=== PATIENT | female | born 1990 | race Caucasian/White ===

== ENCOUNTER → 2016-05-08 | Outpatient (CLI) | payer OTHER ==
[2016-05-08 15:24] LABS: CH 32.6; CHCM 35.2; HCT 33.1 % (34.0-46.0); HDW 3.36; HGB 11.4 gm/dL (11.4-16.0); MCH 32.2 pg (25.0-35.0); MCHC 34.4 g/dL (31.0-37.0); MCV 93.6 fL (80.0-100.0); Mean Platelet Volume 7.6; RBC 3.54 m/uL (3.80-5.40); RDW 14.3 % (11.5-15.5); WBC 11.6 k/uL (3.8-10.6)
[2016-05-08 15:40] LABS: Glucose 66 mg/dL (74-99); Non-African American GFR(MDRD) >60 (>60 ml/min/1.73 sqM)
[2016-05-08 16:12] LABS: Hepatitis B Surface Ag Index 0.06
--- NOTE | 2016-05-08 16:13 | US ---
EXAMINATION TYPE: US OB anatomy transabd DATE OF EXAM: 05/08/2016 2:37 PM COMPARISON: No previous HISTORY: 25-year-old female Large for dates TECHNIQUE: Transabdominal (TA) FINDINGS: EXAM MEASUREMENTS: GESTATIONAL AGE / DATING Physician Established: (19 weeks/6 days) EDC: 09/26/2016 Dates by LMP: Unknown Dates by First Scan: No previous Dates by Current Scan for: (20 weeks/1 days) EDC: 09/24/2016 SURVEY IUP: Single PLACENTA: Posterior/fundal PREVIA: No previa SUNITHA: 10.8 cm Normal CERVICAL LENGTH (transabdominal: norm > 3.0cm): 3.4 cm BIOMETRY PRESENTATION: Breech LIE: Longitudinal BPD: 4.5 cm 19 weeks / 5 days HC: 16.9 cm 19 weeks / 4 days AC: 15.7 cm 20 weeks / 6 days FL: 3.3 cm 20 weeks / 3 days ESTIMATED WEIGHT IN GRAMS: 355 grams ESTIMATED WEIGHT IN LBS/OZS: 0 lbs. 13 oz. WEIGHT PERCENTAGE BASED ON ESTABLISHED DATE: 79 % HC/AC: 1.08 (1.09-1.26) FL/AC: 21% HEART RATE: 149 bpm RHYTHM: Normal ANATOMY SEEN (within normal limits): Lateral Vent (< 1 cm) 7mm Cisterna Magna (< 1.1 cm) 0.6cm Nuchal Fold (< 0.6 cm) 0.3cm Cerebellum (varies with age) 2.1cm Choroid Plexus (bilateral) Midline Falx Cavus Septi Pellucidi Four Chamber Heart Outflow tracts: LVOT Stomach Situs Nose / Lips Diaphragm Bladder Cord Insert Three Vessel Cord Longitudinal Spine Transverse Spine Arms (bilateral) Legs (bilateral) ANATOMY SUBOPTIMALLY VISUALIZED: Outflow tracts: RVOT Kidneys (bilateral) IMPRESSION: 1. Single live intrauterine with established gestational age of 19 weeks 6 days. Current ul trasound biometry is concordant (20 weeks 1 day) placing the child at the 79th percentile for weight. 2. The outflow tract (RVOT) and bilateral kidneys were suboptimally visualized. If desired, the patie nt can return for a rescan of the structures. 3. At that time, HC/AC ratio can also be reassessed. We suspect some technical factors artifactually decreasing this value.
== END | disposition home or self-care (01) ==
LOC: RADUSWWP 13:39
PROVIDERS: ATTEND Obstetrics & Gynecology
DX: O36.62X0 Maternal care for excessive fetal growth, second trimester, not applicable or unspecified (principal); Z3A.19 19 weeks gestation of pregnancy
CPT/HCPCS: 76811; 82565; 82947; 85027; 86762; 86780; 86850; 86900; 86901; 87340

== ENCOUNTER → 2016-06-12 | Outpatient (CLI) | payer OTHER ==
--- NOTE | 2016-06-14 09:17 | US ---
EXAMINATION TYPE: US OB Call Back DATE OF EXAM: 06/12/2016 4:40 PM COMPARISON: 05/08/2016 US in pacs CLINICAL HISTORY: F/U to Abn Z[facility]. OB callback for kidneys, RVOT and HC/AC GESTATIONAL AGE / DATING Dates by Initial Survey Scan: (24 weeks/6 days) EDC: 09/26/2016 HEART RATE: 133 bpm RHYTHM: Normal ANATOMY SEEN (second anatomic survey look): Outflow tracts:? RVOT Kidneys (bilateral): Within normal limits HC/AC 1.10 Normal TECHNOLOGIST IMPRESSION: Viable single IUP with heart rate of 133bpm with RVOT, kidneys and HC/AC se en at this time. IMPRESSION: 1. Limited examination supplementing original anatomy examination 05/08/2016. Additional areas n ot identified previously were measured and evident on the current exam. 2. Cardiac activity measures 133 bpm was observed during this portion of the exam.
== END | disposition home or self-care (01) ==
LOC: RADUSWWP 16:15
PROVIDERS: ATTEND Obstetrics & Gynecology

== ENCOUNTER → 2016-07-20 | Outpatient (CLI) | payer OTHER ==
[2016-07-20 12:26] LABS: CH 32.7; CHCM 34.1; HCT 31.7 % (34.0-46.0); HDW 3.48; HGB 10.7 gm/dL (11.4-16.0); MCH 32.8 pg (25.0-35.0); MCHC 33.9 g/dL (31.0-37.0); MCV 96.8 fL (80.0-100.0); Mean Platelet Volume 7.1; Poikilocytosis Slight; RBC 3.27 m/uL (3.80-5.40); RDW 15.4 % (11.5-15.5)
== END | disposition home or self-care (01) ==
LOC: LABWHC1 10:57
PROVIDERS: ATTEND Obstetrics & Gynecology
DX: Z34.82 Encounter for supervision of other normal pregnancy, second trimester (principal); Z3A.00 Weeks of gestation of pregnancy not specified
CPT/HCPCS: 36415; 82950; 85027

== ENCOUNTER 2016-07-29 15:51 | Outpatient (CLI) | payer OTHER ==
[2016-07-29 16:56] VITALS: BP 118/70; PULSE 111; RESP 20; TEMP 96.2
--- NOTE | 2016-07-29 17:20 | P.MSEPDOC ---
Presenting Problems - Arrival Data Date of Arrival on Unit: 07/29/16 Time of Arrival on Unit: 15:51 Mode of Transport: Wheelchair - Complaint OB-Reason for Admission/Chief Complaint: Possible Onset of Labor, Rule Out PROM Medical History - Information : 4 Para: 3 Term: 2 : 1 Abortions: Spontaneous or Elective: 0 Number of Living Children: 3 - Gestational Age Expected Date of Delivery: 09/26/16 Gestational Age by BROCK (wks/days): 31 Weeks and 4 Days Review of Systems - Review of Systems Constitutional: No problems Breast: No problems ENT: No problems Cardiovascular: No problems Respiratory: No problems Gastrointestinal: No problems Genitourinary: No problems Musculoskeletal: No problems Neurological: No problems Skin: No problems Vital Signs - Temperature Temperature: 96.2 F Temperature Source: Skin - Pulse Brachial Pulse Rate: 111 Pulse Assessment Method: Automatic Cuff - Respirations Respiratory Rate: 20 Oxygen Delivery Method: Room Air O2 Sat by Pulse Oximetry: 97 - Blood Pressure Right Arm Blood Pressure: 118/70 Blood Pressure Mean: 86 Blood Pressure Source: Automatic Cuff Medical Screen Scoring (Pre) - Cervical Exam Dilation: 0 cm = 0 Effacement: Exam Deferred Membranes: Intact - Uterine Contractions Frequency: N/A Duration: N/A Intensity: N/A - Maternal Vital Signs Maternal Temperature: N/A Maternal Blood Pressure: N/A Signs of Preeclampsia: N/A Maternal Respirations: N/A - Maternal Trauma Maternal Trauma: N/A - Assessment Baseline FHR: 150 Heart Rate - NICHD Category: Category I (Normal) = 0 - Total Score Total Score (Pre): 0 - Level of Risk Level of Risk: Low (0-5) Physician Notification (Post) - Physician Notified Physician Notified Date: 07/29/16 Physician Notified Time: 16:50 Physician/Practitioner Notified:: dr aldana Spoke With: dr aldana New Order Received: Yes - Notification Comment Comment: discharge home Disposition - Disposition OB Disposition: Triage, Discharge to home, Written follow up instructions reviewed Discharge Date: 07/29/16 Discharge Time: 17:15 I agree with the RN Medical Screening Exam: Yes Risk & Benefit of care provided described in d/c instruction: Yes Diagnosis: FALSE LABOR, UNSPECIFIED
--- NOTE | 2016-09-06 06:30 | P.MSEPDOC ---
Presenting Problems - Arrival Data Date of Arrival on Unit: 07/29/16 Time of Arrival on Unit: 15:51 Mode of Transport: Wheelchair - Complaint OB-Reason for Admission/Chief Complaint: Possible Onset of Labor, Rule Out PROM Medical History - Information : 4 Para: 3 Term: 2 : 1 Abortions: Spontaneous or Elective: 0 Number of Living Children: 3 - Gestational Age Expected Date of Delivery: 09/26/16 Gestational Age by BROCK (wks/days): 37 Weeks and 1 Days Review of Systems - Review of Systems Constitutional: No problems Breast: No problems ENT: No problems Cardiovascular: No problems Respiratory: No problems Gastrointestinal: No problems Genitourinary: No problems Musculoskeletal: No problems Neurological: No problems Skin: No problems Vital Signs - Temperature Temperature: 96.2 F Temperature Source: Skin - Pulse Brachial Pulse Rate: 111 Pulse Assessment Method: Automatic Cuff - Respirations Respiratory Rate: 20 Oxygen Delivery Method: Room Air O2 Sat by Pulse Oximetry: 97 - Blood Pressure Right Arm Blood Pressure: 118/70 Blood Pressure Mean: 86 Blood Pressure Source: Automatic Cuff Medical Screen Scoring (Pre) - Cervical Exam Dilation: 0 cm = 0 Effacement: Exam Deferred Membranes: Intact - Uterine Contractions Frequency: N/A Duration: N/A Intensity: N/A - Maternal Vital Signs Maternal Temperature: N/A Maternal Blood Pressure: N/A Signs of Preeclampsia: N/A Maternal Respirations: N/A - Maternal Trauma Maternal Trauma: N/A - Assessment Baseline FHR: 150 Heart Rate - NICHD Category: Category I (Normal) = 0 - Total Score Total Score (Pre): 0 - Level of Risk Level of Risk: Low (0-5) Physician Notification (Post) - Physician Notified Physician Notified Date: 07/29/16 Physician Notified Time: 16:50 Physician/Practitioner Notified:: dr aldana Spoke With: dr aldana New Order Received: Yes - Notification Comment Comment: discharge home Disposition - Disposition OB Disposition: Triage, Discharge to home, Written follow up instructions reviewed Discharge Date: 07/29/16 Discharge Time: 17:15 I agree with the RN Medical Screening Exam: Yes Risk & Benefit of care provided described in d/c instruction: Yes Diagnosis: 37 WEEKS GESTATION OF
== END 2016-07-29 17:08 | disposition home or self-care (01) ==
LOC: FBPOP 15:51
PROVIDERS: ATTEND Obstetrics & Gynecology
DX: O47.9 False labor, unspecified (principal); Z3A.31 31 weeks gestation of pregnancy
CPT/HCPCS: 59025; 84112; G0463; 99213

== ENCOUNTER 2016-08-14 14:03 | Outpatient (CLI) | payer OTHER ==
[2016-08-14 14:54] VITALS: BP 130/90; PULSE 113; RESP 16; TEMP 96.4
== END 2016-08-14 16:30 | disposition home or self-care (01) ==
LOC: FBPOP 14:03
PROVIDERS: ATTEND Obstetrics & Gynecology
DX: O26.93 Pregnancy related conditions, unspecified, third trimester (principal); Z3A.33 33 weeks gestation of pregnancy
CPT/HCPCS: 59025; 84112; 82731; G0463; 99213

== ENCOUNTER 2016-08-20 10:43 | Outpatient (CLI) | payer OTHER ==
[2016-08-20 11:16] VITALS: PULSE 103; RESP 16; TEMP 96.3
[2016-08-20 11:58] VITALS: BP 128/85
--- NOTE | 2016-08-24 07:33 | P.MSEPDOC ---
Presenting Problems - Arrival Data Date of Arrival on Unit: 08/20/16 Time of Arrival on Unit: 10:45 Mode of Transport: Ambulatory - Complaint OB-Reason for Admission/Chief Complaint: Possible Onset of Labor Comment: cntrx, breech Medical History - Information : 4 Para: 3 Term: 2 : 1 Abortions: Spontaneous or Elective: 0 Number of Living Children: 3 - Gestational Age Expected Date of Delivery: 09/19/16 Gestational Age by BROCK (wks/days): 36 Weeks and 2 Days - History Complications: Breech Review of Systems - Review of Systems Constitutional: No problems Breast: No problems ENT: No problems Cardiovascular: No problems Respiratory: No problems Gastrointestinal: No problems Genitourinary: No problems Musculoskeletal: No problems Neurological: No problems Skin: No problems Vital Signs - Temperature Temperature: 96.3 F Temperature Source: Oral - Pulse Right Pulse Rate: 103 Pulse Assessment Method: Auscultation - Respirations Respiratory Rate: 16 Oxygen Delivery Method: Room Air - Blood Pressure Right Arm Blood Pressure: 128/85 Blood Pressure Mean: 99 Blood Pressure Source: Automatic Cuff Medical Screen Scoring (Pre) - Cervical Exam Dilation: 1-3 cm = 1 Membranes: Intact - Uterine Contractions Frequency: > 5 minutes apart = 1 Duration: N/A Intensity: N/A - Maternal Vital Signs Maternal Temperature: N/A Signs of Preeclampsia: N/A Maternal Respirations: N/A - Maternal Trauma Maternal Trauma: N/A - Assessment Baseline FHR: 140 Heart Rate - NICHD Category: Category I (Normal) = 0 NST: Reactive Position: N/A - Total Score Total Score (Pre): 2 - Level of Risk Level of Risk: Low (0-5) Physician Notification (Pre) - Physician Notified Physician Notified Date: 08/20/16 Physician Notified Time: 11:14 Physician/Practitioner Notifed:: Dr Fisher - Notification Comment Comment: d/c home with instructions, keep scheduled appt on in office Medical Screen Scoring (Post) - Cervical Exam Dilation: 1-3 cm = 1 - Uterine Contractions Frequency: N/A Duration: N/A Intensity: N/A - Maternal Vital Signs Maternal Temperature: N/A Maternal Blood Pressure: N/A Signs of Preeclampsia: N/A Maternal Respirations: N/A - Assessment Heart Rate: 140 Heart Rate - NICHD Category: Category I (Normal) = 0 - Total Score Total Score (Post): 1 - Post Treatment Level of Risk Post Treatment Level of Risk: N/A Physician Notification (Post) - Physician Notified Physician Notified Date: 08/20/16 Physician Notified Time: 11:57 Physician/Practitioner Notified:: dr fisher New Order Received: Yes Disposition - Disposition OB Disposition: Discharge to home Transferred to:: home Discharge Date: 08/20/16 Discharge Time: 11:58 I agree with the RN Medical Screening Exam: Yes Risk & Benefit of care provided described in d/c instruction: Yes Diagnosis: PRIMARY INADEQUATE CONTRACTIONS
== END 2016-08-20 11:58 | disposition home or self-care (01) ==
LOC: FBPOP 10:43
PROVIDERS: ATTEND Obstetrics & Gynecology
DX: O62.0 Primary inadequate contractions (principal); Z3A.36 36 weeks gestation of pregnancy
CPT/HCPCS: 59025; G0463; 99213

== ENCOUNTER 2016-09-06 17:10 | Outpatient (CLI) | payer OTHER ==
[2016-09-06 17:27] VITALS: BP 126/83; PULSE 109; TEMP 96.5
[2016-09-06 17:35] VITALS: RESP 17
== END 2016-09-06 18:54 | disposition home or self-care (01) ==
LOC: FBPOP 17:10
PROVIDERS: ATTEND Obstetrics & Gynecology
DX: O47.1 False labor at or after 37 completed weeks of gestation (principal); Z3A.37 37 weeks gestation of pregnancy
CPT/HCPCS: 59025; G0463; 99213

== ENCOUNTER 2016-09-12 20:17 | Outpatient (CLI) | payer OTHER ==
[2016-09-12 20:47] VITALS: BP 143/91; PULSE 95; RESP 18; TEMP 96.8
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
== END 2016-09-12 23:20 | disposition home or self-care (01) ==
LOC: FBPOP 20:17
PROVIDERS: ATTEND Obstetrics & Gynecology
DX: O9A.213 Injury, poisoning and certain other consequences of external causes complicating pregnancy, third trimester (principal); T14.90 Injury, unspecified; Z3A.38 38 weeks gestation of pregnancy
CPT/HCPCS: 59025; 84112; G0463; 99213

== ENCOUNTER 2016-09-15 11:11 | Inpatient (IN) | payer OTHER ==
[2016-09-15] MEDS ORDERED: TERBUTALINE 1 MG/ML VIAL SQ PRN (12:56)
[2016-09-15] MEDS ORDERED: CARBOPROST TROMETHAMINE 250 MCG/ML 1 ML AMP IM PRN (12:56)
[2016-09-15] MEDS ORDERED: METHYLERGONOVINE 0.2 MG/ML 1 ML AMP IM PRN (12:56)
[2016-09-15] MEDS ORDERED: OXYTOCIN 10 UNIT/ML 1 ML VIAL IM PRN (12:56)
[2016-09-15] MEDS ORDERED: LIDOCAINE 1% (PF) 10 MG/ML (30 ML SDV) SQ PRN (12:56)
[2016-09-15] MEDS ORDERED: OXYTOCIN 20 UNITS/1000 ML NS 1,000 ML IV SCH ×2 (13:00→17:45)
--- NOTE | 2016-09-15 13:01 | P.HPOB ---
History of Present Illness H&P Date: 09/15/16 Chief Complaint: contractions 25 year old presents at 38 weeks and 4 days in labor. Her cervix changed from 4 centers to 5 cm dilated, 70% effaced, -2 station. She is constance irregularly every 3-5 minutes. heart tones are 140-145 with moderate variability and reactive. Review of Systems All systems: negative Constitutional: Denies chills, Denies fever Eyes: denies blurred vision, denies pain Ears, nose, mouth and throat: Denies headache, Denies sore throat Cardiovascular: Denies chest pain, Denies shortness of breath Respiratory: Denies cough Gastrointestinal: Denies abdominal pain, Denies diarrhea, Denies nausea, Denies vomiting Genitourinary: Denies dysuria, Denies hematuria Musculoskeletal: Denies myalgias Integumentary: Denies pruritus, Denies rash Neurological: Denies numbness, Denies weakness Psychiatric: Denies anxiety, Denies depression Endocrine: Denies fatigue, Denies weight change Past Medical History Past Medical History: No Reported History Additional Past Medical History / Comment(s): Obstetric history: She has had 3 previous vaginal deliveries. This is her fourth . She's had care with me since 17 weeks gestation. Blood type B positive, antibodies negative, rubella immune, treponema antibody negative, hepatitis B negative. GBS negative. Normal 1 hour glucose tolerance test and normal anatomy ultrasound. History of Any Multi-Drug Resistant Organisms: None Reported Past Surgical History: Cholecystectomy Past Anesthesia/Blood Transfusion Reactions: No Reported Reaction Past Psychological History: No Psychological Hx Reported Smoking Status: Never smoker Past Alcohol Use History: None Reported Past Drug Use History: None Reported - Past Family History Mother Family Medical History: Hypertension Medications and Allergies Home Medications Medication Instructions Recorded Confirmed Type Pnv,Calcium 72/Iron/Folic Acid 1 each PO DAILY 07/29/16 09/15/16 History [ Plus Tablet] Allergies Allergy/AdvReac Type Severity Reaction Status Date / Time acetaminophen [From Lortab] Allergy Rash/Hives Verified 09/15/16 12:03 codeine Allergy Rash/Hives Verified 09/15/16 12:03 hydrocodone [From Lortab] Allergy Rash/Hives Verified 09/15/16 12:03 latex Allergy Rash/Hives Verified 09/15/16 12:03 adhesive tape Allergy Rash/Hives Uncoded 09/15/16 12:03 Exam Osteopathic Statement: *. No significant issues noted on an osteopathic structural exam other than those noted in the History and Physical/Consult. - Vital Signs Vital signs: Vital Signs Temp Pulse Resp BP Pulse Ox 09/15/16 12:04 98.5 F 88 18 132/73 96 Intake and Output 09/14/16 09/15/16 09/15/16 22:59 06:59 14:59 Other: Weight 86.636 kg Patient Weight 09/16/16 06:59 Weight 86.636 kg Heart: Regular rate and rhythm Lungs: Clear to auscultation bilaterally Abdomen: Soft, nontender between contractions Extremities: Negative Homans sign Assessment and Plan (1) Normal labor Status: Acute Plan: 1. Admit to family place 2. Expectant management 3. Anticipate normal vaginal delivery
[2016-09-15 13:11] LABS: Basophils % (A) 0 %; CH 32.6; CHCM 34.4; Eosinophils % (A) 0 %; HCT 33.1 % (34.0-46.0); HGB 11.1 gm/dL (11.4-16.0); Luc # (Auto) 0.18; Luc % (Auto) 2; Lymphocytes % (A) 22 %; MCH 31.9 pg (25.0-35.0); MCHC 33.4 g/dL (31.0-37.0); MCV 95.2 fL (80.0-100.0); Mean Platelet Volume 7.4; Monocytes # (A) 0.4 k/uL (0-1.0); Monocytes % (A) 4 %; Neutrophils # (A) 6.6 k/uL (1.3-7.7); Neutrophils % (A) 72 %; Poikilocytosis Slight; RBC 3.48 m/uL (3.80-5.40); RDW 15.6 % (11.5-15.5); WBC 9.1 k/uL (3.8-10.6); WBC (Perox) 8.95
[2016-09-15] MEDS ORDERED: BUTORPHANOL 1 MG/ML 1 ML VIAL IV PRN (13:11)
[2016-09-15] MEDS: LACTATED RINGERS 1,000 ML IV SCH ×2 (13:19→21:35)
[2016-09-15 13:26] VITALS: RESP 16; BMI 31.8
[2016-09-15] MEDS ORDERED: BENZOCAINE SPRAY 57GM TOPICAL PRN (17:37)
[2016-09-15] MEDS ORDERED: SIMETHICONE 80 MG CHEWABLE PO PRN (17:37)
[2016-09-15] MEDS ORDERED: diphenhydrAMINE 50 MG/ML 1 ML VIAL IVP PRN ×2 (17:37)
[2016-09-15] MEDS ORDERED: LANOLIN CREAM 5 GM TUBE TOPICAL PRN (17:37)
[2016-09-15] MEDS ORDERED: HYDROCORTISONE 2.5% RECTAL CREAM 30 GM TUBE RECTAL PRN (17:37)
[2016-09-15] MEDS ORDERED: WITCH HAZEL 1 EACH MED..PAD TOPICAL PRN (17:37)
[2016-09-15] MEDS ORDERED: diphenhydrAMINE 25 MG CAP PO PRN (17:37)
[2016-09-15] MEDS ORDERED: ZOLPIDEM 5 MG TAB PO PRN (17:37)
[2016-09-15] MEDS ORDERED: diphenhydrAMINE 50 MG CAP PO PRN (17:37)
[2016-09-15] MEDS ORDERED: ACETAMINOPHEN TAB 325 MG TAB PO PRN (17:43)
--- NOTE | 2016-09-15 18:03 | P.PROBDLV ---
Vaginal Delivery Note - . Vaginal Delivery Note: The patient progressed to complete dilation spontaneously. She delivered early precipitately vaginally a viable female with a loose nuchal cord 1 reduced around the body with delivery. Apgars were 9 at 1 minute and 9 at 5 minutes and infant weight was 6 lbs. 3 oz. Placenta delivered shortly thereafter, intact, with a three-vessel cord. Uterus contracted well after oxytocin was given and uterine massage was carried out. Inspection of the perineum revealed no perineal lacerations. Estimated blood loss is approximately 100 mL's. Both mother and infant are in stable condition.
[2016-09-15] MEDS: SENNOSIDES-DOCUSATE SODIUM 1 EACH TAB PO SCH (19:29)
[2016-09-15] MEDS: IBUPROFEN 600 MG TAB PO PRN (23:47)
[2016-09-16 06:01] LABS: Basophils % (A) 0 %; CH 32.6; CHCM 35.5; Eosinophils % (A) 0 %; HCT 29.8 % (34.0-46.0); HDW 3.57; HGB 10.4 gm/dL (11.4-16.0); Luc # (Auto) 0.23; Luc % (Auto) 2; Lymphocytes # (A) 1.8 k/uL (1.0-4.8); Lymphocytes % (A) 15 %; MCH 32.3 pg (25.0-35.0); MCHC 34.9 g/dL (31.0-37.0); MCV 92.6 fL (80.0-100.0); Mean Platelet Volume 7.5; Monocytes # (A) 0.4 k/uL (0-1.0); Monocytes % (A) 3 %; Neutrophils # (A) 9.4 k/uL (1.3-7.7); Neutrophils % (A) 79 %; Poikilocytosis Slight; RBC 3.22 m/uL (3.80-5.40); RDW 15.2 % (11.5-15.5); WBC 11.9 k/uL (3.8-10.6); WBC (Perox) 12.06
--- NOTE | 2016-09-16 07:35 | P.DS ---
Providers Date of admission: 09/15/16 12:38 Expected date of discharge: 09/16/16 Attending physician: Naomi Sierra Primary care physician: Stated None - Discharge Diagnosis(es) (1) Normal labor Current Visit: Yes Status: Resolved (2) Normal vaginal delivery Current Visit: No Status: Acute Hospital Course: Patient presented in labor. She underwent a normal vaginal delivery and had an uncomplicated post course. Her lochia is decreasing, pain well controlled, ambulating and voiding without difficulty. Denies N/V, F/C, CP, SOB , calf pain. She will be discharged home PPD #1 in stable condition to follow up with me in 6 weeks. Plan - Discharge Summary New Discharge Prescriptions: No Action Pnv,Calcium 72/Iron/Folic Acid [ Plus Tablet] 1 each PO DAILY Discharge Medication List Pnv,Calcium 72/Iron/Folic Acid [ Plus Tablet] 1 each PO DAILY 07/29/16 [ History] Follow up Appointment(s)/Referral(s): Naomi Sierra DO [Doctor of Osteopathic Medicine] - 6 Weeks Discharge Disposition: HOME SELF-CARE
[2016-09-16] MEDS: SENNOSIDES-DOCUSATE SODIUM 1 EACH TAB PO SCH (10:28)
--- NOTE | 2016-09-16 12:58 | P.MSEPDOC ---
Presenting Problems - Arrival Data Date of Arrival on Unit: 09/15/16 Time of Arrival on Unit: 12:35 Mode of Transport: Ambulatory - Complaint OB-Reason for Admission/Chief Complaint: Possible Onset of Labor, Vaginal Bleeding Medical History - Information : 4 Para: 3 Term: 2 : 1 Abortions: Spontaneous or Elective: 0 Number of Living Children: 3 - Gestational Age Expected Date of Delivery: 09/26/16 Gestational Age by BROCK (wks/days): 38 Weeks and 4 Days Review of Systems - Review of Systems Constitutional: No problems Breast: No problems ENT: No problems Cardiovascular: No problems Respiratory: No problems Gastrointestinal: No problems Genitourinary: No problems Musculoskeletal: No problems Neurological: No problems Skin: No problems Vital Signs - Temperature Temperature: 97.7 F Temperature Source: Oral - Pulse Pulse Oximetery Pulse Rate: 98 Pulse Assessment Method: Automatic Cuff - Respirations Respiratory Rate: 16 Oxygen Delivery Method: Room Air O2 Sat by Pulse Oximetry: 98 - Blood Pressure Right Arm Sitting Blood Pressure: 129/87 Blood Pressure Mean: 101 Blood Pressure Source: Automatic Cuff Medical Screen Scoring (Pre) - Cervical Exam Dilation: 4-7 cm = 2 Effacement: More than 50% = 2 Membranes: Intact - Uterine Contractions Frequency: > 5 minutes apart = 1 Duration: > 40 seconds = 2 - Maternal Vital Signs Maternal Temperature: N/A Maternal Blood Pressure: N/A Signs of Preeclampsia: N/A Maternal Respirations: N/A - Maternal Trauma Maternal Trauma: N/A - Assessment Baseline FHR: 130 Heart Rate - NICHD Category: Category I (Normal) = 0 NST: Reactive Position: N/A Station: N/A - Total Score Total Score (Pre): 7 - Level of Risk Level of Risk: Medium (6-9) Physician Notification (Pre) - Physician Notified Physician Notified Date: 09/15/16 Physician Notified Time: 11:45 New Order Received: Yes Medical Screen Scoring (Post) - Cervical Exam Dilation: 4-7 cm = 2 Effacement: More than 50% = 2 Membranes: Intact - Uterine Contractions Frequency: > 5 minutes apart = 1 Duration: > 40 seconds = 2 Intensity: N/A - Maternal Vital Signs Maternal Temperature: N/A Maternal Blood Pressure: N/A Signs of Preeclampsia: N/A Maternal Respirations: N/A - Maternal Trauma Maternal Trauma: N/A - Assessment Heart Rate: 130 Heart Rate - NICHD Category: Category I (Normal) = 0 NST: Reactive Position: N/A Station: N/A - Total Score Total Score (Post): 7 - Post Treatment Level of Risk Post Treatment Level of Risk: Medium (6-9) Physician Notification (Post) - Physician Notified Physician Notified Date: 09/15/16 Physician Notified Time: 12:35 New Order Received: Yes Disposition - Disposition OB Disposition: Admit, LDRP Suite Discharge Date: 09/15/16 Discharge Time: 12:35 I agree with the RN Medical Screening Exam: Yes Risk & Benefit of care provided described in d/c instruction: Yes Diagnosis: ENCOUNTER FOR FULL-TERM UNCOMPLICATED DELIVERY
[2016-09-16] MEDS: IBUPROFEN 600 MG TAB PO PRN (17:26)
[2016-09-16 17:49] VITALS: PULSE 61; TEMP 98.3
[2016-09-16 17:51] VITALS: BP 137/87
== END 2016-09-16 18:30 | disposition home or self-care (01) | DRG 775 ==
LOC: FBPOP 11:11 → 4FBP 12:38
PROVIDERS: ADMIT Obstetrics & Gynecology; ATTEND Obstetrics & Gynecology
PROC: 10E0XZZ Delivery of Products of Conception, External Approach (ICD-10-PCS; principal; 2016-09-15)
DX: O69.81X0 Labor and delivery complicated by cord around neck, without compression, not applicable or unspecified (principal); Z37.0 Single live birth; Z3A.38 38 weeks gestation of pregnancy; Z79.899 Other long term (current) drug therapy; Z90.49 Acquired absence of other specified parts of digestive tract; Z88.6 Allergy status to analgesic agent; Z88.5 Allergy status to narcotic agent; Z91.040 Latex allergy status; Z91.048 Other nonmedicinal substance allergy status
CPT/HCPCS: 59025; 85025; 88307; 99213

== ENCOUNTER → 2016-11-23 | Outpatient (CLI) | payer OTHER | LOC: LABWHC1 12:26 | PROVIDERS: ATTEND Obstetrics & Gynecology | DX: N92.6 Irregular menstruation, unspecified (principal) | CPT/HCPCS: 36415; 84702 ==

== ENCOUNTER → 2017-01-01 | Outpatient (CLI) | payer OTHER ==
[2017-01-01 12:34] LABS: Basophils % (A) 1 %; CH 31.5; CHCM 33.9; Eosinophils # (A) 0.1 k/uL (0-0.7); Eosinophils % (A) 1 %; HCT 40.2 % (34.0-46.0); HDW 2.71; HGB 13.1 gm/dL (11.4-16.0); Luc # (Auto) 0.14; Luc % (Auto) 2; Lymphocytes # (A) 2.6 k/uL (1.0-4.8); Lymphocytes % (A) 41 %; MCH 30.5 pg (25.0-35.0); MCHC 32.7 g/dL (31.0-37.0); MCV 93.4 fL (80.0-100.0); Mean Platelet Volume 7.6; Monocytes # (A) 0.3 k/uL (0-1.0); Monocytes % (A) 5 %; Neutrophils # (A) 3.2 k/uL (1.3-7.7); Neutrophils % (A) 50 %; RDW 14.7 % (11.5-15.5); WBC 6.3 k/uL (3.8-10.6); WBC (Perox) 6.63
== END | disposition home or self-care (01) ==
LOC: LABPAT 12:06
PROVIDERS: ATTEND Obstetrics & Gynecology
DX: Z01.812 Encounter for preprocedural laboratory examination (principal)
CPT/HCPCS: 85025

== ENCOUNTER 2017-01-04 06:58 | Day surgery (SDC) | payer OTHER ==
[2017-01-01 10:22] VITALS: BMI 28.4
--- NOTE | 2017-01-01 15:36 | P.HPOB ---
History of Present Illness H&P Date: 01/01/17 Chief Complaint: Family Planning 26 year old presents for laparoscopic tubal ligation. Review of Systems All systems: negative Constitutional: Denies chills, Denies fever Eyes: denies blurred vision, denies pain Ears, nose, mouth and throat: Denies headache, Denies sore throat Cardiovascular: Denies chest pain, Denies shortness of breath Respiratory: Denies cough Gastrointestinal: Denies abdominal pain, Denies diarrhea, Denies nausea, Denies vomiting Genitourinary: Denies dysuria, Denies hematuria Musculoskeletal: Denies myalgias Integumentary: Denies pruritus, Denies rash Neurological: Denies numbness, Denies weakness Psychiatric: Denies anxiety, Denies depression Endocrine: Denies fatigue, Denies weight change Past Medical History Past Medical History: No Reported History Additional Past Medical History / Comment(s): OB history: 4 vaginal deliveries History of Any Multi-Drug Resistant Organisms: None Reported Past Surgical History: Cholecystectomy Past Anesthesia/Blood Transfusion Reactions: No Reported Reaction Past Psychological History: No Psychological Hx Reported Smoking Status: Never smoker Past Alcohol Use History: None Reported Past Drug Use History: None Reported - Past Family History Father Family Medical History: Cancer, Deep Vein Thrombosis (DVT) Mother Family Medical History: Deep Vein Thrombosis (DVT), Hypertension Medications and Allergies Home Medications Medication Instructions Recorded Confirmed Type Amoxicillin 500 mg PO Q12HR 01/01/17 01/01/17 History Allergies Allergy/AdvReac Type Severity Reaction Status Date / Time acetaminophen [From Lortab] Allergy Rash/Hives Verified 01/01/17 10:06 codeine Allergy Rash/Hives Verified 01/01/17 10:06 hydrocodone [From Lortab] Allergy Rash/Hives Verified 01/01/17 10:06 latex Allergy Rash/Hives Verified 01/01/17 10:06 adhesive tape Allergy Rash/Hives Uncoded 01/01/17 10:06 Exam Osteopathic Statement: *. No significant issues noted on an osteopathic structural exam other than those noted in the History and Physical/Consult. - Vital Signs Vital signs: Intake and Output 01/01/17 01/01/17 01/01/17 06:59 14:59 22:59 Other: Weight 77.564 kg Patient Weight 01/02/17 06:59 Weight 77.564 kg HEart: RRR Lungs: CTAB Abdomen: soft, nontender Extremeties: neg lillian's Assessment and Plan (1) Family planning Status: Acute Plan: 1. laparoscopic tubal ligation
[~2017-01-04 06:58] MED LIST: DEXAMETHASONE SOD PHOSPHATE 10 MG/ML 1 ML VIAL IV ONE; HYDROmorphone 1 MG/ML 1 ML SYRINGE IVP PRN; LACTATED RINGERS 1,000 ML IV SCH; LIDOCAINE 1% 20 ML VIAL (10MG/ML) FOR IV START INTRADERMA PRN; MIDAZOLAM 2 MG/2 ML VIAL IV PRN; ONDANSETRON 4 MG/2 ML VIAL IVP ONE; Pre Op ABX Message 1 EACH MISC MISCELLANE ONE; SCOPOLAMINE 1.5MG/72HR PATCH TRANSDERM ONE
[2017-01-04] MEDS ORDERED: LACTATED RINGERS 1,000 ML IV ONE ×2 (07:21→08:40)
[2017-01-04] MEDS ORDERED: BUPIVACAINE (PF) 0.25% 30 ML VIAL SQ ONE ×3 (07:35→08:43)
[2017-01-04] MEDS ORDERED: MIDAZOLAM 2 MG/2 ML VIAL ONE (07:56)
[2017-01-04] MEDS ORDERED: LIDOCAINE 1% INJ 10MG/ML (20 ML MDV) ONE (07:56)
[2017-01-04] MEDS ORDERED: KETOROLAC 30 MG/ML 1 ML VIAL ONE (07:56)
[2017-01-04] MEDS ORDERED: HYDROmorphone (PF) 1 MG/ML ONE (07:56)
[2017-01-04] MEDS ORDERED: ROCURONIUM BROMIDE 10 MG/ML 10 ML VIAL IV ONE (07:56)
[2017-01-04] MEDS ORDERED: SUCCINYLCHOLINE CHLORIDE 100 MG/5 ML SYR IV ONE (07:56)
[2017-01-04] MEDS ORDERED: GLYCOPYRROLATE 0.2 MG/ML 2 ML VIAL ONE (07:56)
[2017-01-04] MEDS ORDERED: PROPOFOL 10 MG/ML 20 ML VIAL IV ONE (07:56)
[2017-01-04] MEDS ORDERED: fentaNYL (PF) 50 MCG/ML 2 ML AMP ONE (07:56)
[2017-01-04] MEDS ORDERED: NEOSTIGMINE 1 MG/ML 10 ML VIAL ONE (07:56)
[2017-01-04] MEDS ORDERED: MEPERIDINE 50 MG/ML SYRINGE ONE (07:56)
--- NOTE | 2017-01-04 08:44 | P.OP ---
Date of Procedure: 01/04/17 Preoperative Diagnosis: 1. Family planning Postoperative Diagnosis: 1. Family planning Procedure(s) Performed: Laparoscopic tubal ligation Anesthesia: LYNSEY Surgeon: Naomi Sierra Estimated Blood Loss (ml): 5 IV fluids (ml): 850 Urine output (ml): 10 Pathology: none sent Condition: stable Disposition: PACU Operative Findings: Normal uterus, tubes, ovaries Description of Procedure: Patient was taken to the operating room where general anesthesia was obtained without difficulty. She was prepped and draped in normal sterile fashion in the dorsal lithotomy position, legs placed in the Kostas stirrups. Bladder drained of all urine. [place] speculum placed in the vagina and the anterior lip the cervix was grasped with single-tooth tenaculum. The uterus is sounded to 8.5 cm and the kroner manipulator was placed. Attention was then turned to the abdomen and gloves were changed. A 10 mm infraumbilical incision was made the scalpel and 10 mm optical trocar was placed under direct visualization. A 5 mm suprapubic Incision was made and a 5 mm optical trocar was placed under direct visualization. Survey of the pelvis revealed normal uterus tubes and ovaries. The left fallopian tube was grasped with a Kleppinger and fulgurated 2 -3 cm on this side in the ampullar portion. The right fallopian tube was grasped with a Kleppinger and fulgurated 2-3 cm in the ampullar portion. All instruments were then removed from the abdomen and vagina. The 10 mm infraumbilical incision was closed with 0 Vicryl and the fascial layer and then 4-0 Vicryl in a subcuticular fashion. The 5 mm incision was closed with 4-0 Vicryl in a subcuticular fashion. Patient tolerated procedure well, sponge and instrument counts correct 2 and she was taken to recovery room in stable condition.
[2017-01-04 09:00] VITALS: TEMP 97
[2017-01-04 09:36] VITALS: RESP 16
[2017-01-04 09:59] VITALS: BP 130/82; PULSE 69
== END 2017-01-04 10:55 | disposition home or self-care (01) ==
LOC: OR 06:58
PROVIDERS: ATTEND Obstetrics & Gynecology
DX: Z30.2 Encounter for sterilization (principal); Z79.2 Long term (current) use of antibiotics; Z88.6 Allergy status to analgesic agent; Z91.040 Latex allergy status; Z88.5 Allergy status to narcotic agent; Z91.09 Other allergy status, other than to drugs and biological substances
CPT/HCPCS: 81025; 58670; J2250; J1100; J2710; J2175; J2405; J2001; J3010; J1885; J1170; J0330; J2704

== ENCOUNTER → 2017-04-27 | Outpatient (CLI) | payer OTHER ==
--- NOTE | 2017-04-27 16:08 | XR ---
EXAMINATION TYPE: XR elbow limited LT DATE OF EXAM: 04/27/2017 CLINICAL HISTORY: Left-sided pain posteriorly after fall TECHNIQUE: Frontal, lateral and oblique images of the left elbow are obtained. COMPARISON: None FINDINGS: There is no acute fracture/dislocation evident in the left elbow. No abnormal fat pad sig ns are seen. The overlying soft tissue appears unremarkable. IMPRESSION: There is no acute fracture or dislocation in the left elbow.
== END | disposition home or self-care (01) ==
LOC: RADXRMAIN 15:36
PROVIDERS: ATTEND Family Medicine
DX: M25.529 Pain in unspecified elbow (principal)

== ENCOUNTER 2018-02-18 08:26 | Emergency (ER) | payer OTHER ==
[2018-02-18] MEDS ORDERED: SODIUM CHLORIDE 0.9% 1,000 ML IV STA (08:59)
--- NOTE | 2018-02-18 09:01 | ED ---
General Adult HPI - General Chief complaint: Abdominal Pain Stated complaint: Abd Pain Time Seen by Provider: 02/18/18 08:39 Source: patient, RN notes reviewed, old records reviewed Mode of arrival: ambulatory Limitations: no limitations - History of Present Illness Initial comments: 27-year-old female presents for evaluation of generalized abdominal pain and nausea vomiting diarrhea. Patient's symptoms 7 present for the past 2 days. She is reported multiple episodes of watery diarrhea. No recent antibiotics or recent travel. No fever or chills. Pain in her abdomen is crampy in diffuse. She's had nausea with no significant vomiting. No known sick contacts. - Related Data Home Medications Medication Instructions Recorded Confirmed No Known Home Medications 02/18/18 02/18/18 Allergies Allergy/AdvReac Type Severity Reaction Status Date / Time acetaminophen [From Lortab] Allergy Rash/Hives Verified 02/18/18 09:08 codeine Allergy Rash/Hives Verified 02/18/18 09:08 hydrocodone [From Lortab] Allergy Rash/Hives Verified 02/18/18 09:08 latex Allergy Rash/Hives Verified 02/18/18 09:08 adhesive tape Allergy Rash/Hives Uncoded 02/18/18 08:33 Review of Systems ROS Statement: Those systems with pertinent positive or pertinent negative responses have been documented in the HPI. ROS Other: All systems not noted in ROS Statement are negative. Past Medical History Past Medical History: No Reported History Additional Past Medical History / Comment(s): ON ANTIBIOTICS FOR RECENT SINUS INFECTION DR. KAPOOR AWARE History of Any Multi-Drug Resistant Organisms: None Reported Past Surgical History: Cholecystectomy, Tubal Ligation Past Anesthesia/Blood Transfusion Reactions: No Reported Reaction Past Psychological History: No Psychological Hx Reported Smoking Status: Never smoker Past Alcohol Use History: None Reported Past Drug Use History: None Reported - Past Family History Father Family Medical History: Cancer, Deep Vein Thrombosis (DVT) Mother Family Medical History: Deep Vein Thrombosis (DVT), Hypertension General Exam Limitations: no limitations General appearance: alert Head exam: Present: atraumatic, normocephalic Eye exam: Present: normal appearance, PERRL ENT exam: Present: normal exam, mucous membranes dry Neck exam: Present: normal inspection. Absent: tenderness, meningismus Respiratory exam: Present: normal lung sounds bilaterally. Absent: respiratory distress, wheezes Cardiovascular Exam: Present: regular rate, normal rhythm GI/Abdominal exam: Present: soft, tenderness (Minimal generalized tenderness to palpation). Absent: distended, guarding, rebound Extremities exam: Present: normal inspection, normal capillary refill. Absent: pedal edema Neurological exam: Present: alert, oriented X3, CN II-XII intact. Absent: motor sensory deficit Psychiatric exam: Present: normal affect, normal mood Skin exam: Present: warm, dry, intact. Absent: cyanosis, diaphoretic Course Vital Signs 02/18/18 08:31 Temperature 97.6 F Pulse Rate 88 Respiratory 18 Rate Blood Pressure 137/90 O2 Sat by Pulse 99 Oximetry Medical Decision Making - Medical Decision Making 27-year-old female with diarrhea and nausea. Patient is well-appearing, stable vitals. Normal CBC, normal CMP. Urinalysis negative for infection. Patient given IV fluids. She will follow-up with primary care physician. Return with worsening or changing symptoms. - Lab Data Result diagrams: 02/18/18 08:58 02/18/18 08:58 Lab Results 02/18/18 02/18/18 02/18/18 Range/Units 08:58 08:58 09:08 WBC 8.5 (3.8-10.6) k/uL RBC 4.57 (3.80-5.40) m/uL Hgb 13.8 (11.4-16.0) gm/dL Hct 41.2 (34.0-46.0) % MCV 90.2 (80.0-100.0) fL MCH 30.3 (25.0-35.0) pg MCHC 33.6 (31.0-37.0) g/dL RDW 12.7 (11.5-15.5) % Plt Count 255 (150-450) k/uL Neutrophils % 60 % Lymphocytes % 34 % Monocytes % 3 % Eosinophils % 1 % Basophils % 0 % Neutrophils # 5.1 (1.3-7.7) k/uL Lymphocytes # 2.9 (1.0-4.8) k/uL Monocytes # 0.3 (0-1.0) k/uL Eosinophils # 0.1 (0-0.7) k/uL Basophils # 0.0 (0-0.2) k/uL Sodium 141 (137-145) mmol/L Potassium 4.2 (3.5-5.1) mmol/L Chloride 107 (98-107) mmol/L Carbon Dioxide 23 (22-30) mmol/L Anion Gap 11 mmol/L BUN 7 (7-17) mg/dL Creatinine 0.65 (0.52-1.04) mg/dL Est GFR (CKD-EPI)AfAm >90 (>60 ml/min/1.73 sqM) Est GFR (CKD-EPI)NonAf >90 (>60 ml/min/1.73 sqM) Glucose 93 (74-99) mg/dL Calcium 9.7 (8.4-10.2) mg/dL Total Bilirubin 0.7 (0.2-1.3) mg/dL AST 20 (14-36) U/L ALT 24 (9-52) U/L Alkaline Phosphatase 81 (38-126) U/L Total Protein 7.7 (6.3-8.2) g/dL Albumin 4.5 (3.5-5.0) g/dL Amylase 49 (30-110) U/L Lipase 83 (23-300) U/L Urine Color Urine Appearance (Clear) Urine pH (5.0-8.0) Ur Specific [place] (1.001-1.035) Urine Protein (Negative) Urine Glucose (UA) (Negative) Urine Ketones (Negative) Urine Blood (Negative) Urine Nitrite (Negative) Urine Bilirubin (Negative) Urine Urobilinogen (<2.0) mg/dL Ur Leukocyte Esterase (Negative) Urine RBC (0-5) /hpf Urine WBC (0-5) /hpf Ur Squamous Epith Cells (0-4) /hpf Urine Mucus (None) /hpf Urine HCG, Qual Not Detected (Not Detectd) 02/18/18 Range/Units 09:08 WBC (3.8-10.6) k/uL RBC (3.80-5.40) m/uL Hgb (11.4-16.0) gm/dL Hct (34.0-46.0) % MCV (80.0-100.0) fL MCH (25.0-35.0) pg MCHC (31.0-37.0) g/dL RDW (11.5-15.5) % Plt Count (150-450) k/uL Neutrophils % % Lymphocytes % % Monocytes % % Eosinophils % % Basophils % % Neutrophils # (1.3-7.7) k/uL Lymphocytes # (1.0-4.8) k/uL Monocytes # (0-1.0) k/uL Eosinophils # (0-0.7) k/uL Basophils # (0-0.2) k/uL Sodium (137-145) mmol/L Potassium (3.5-5.1) mmol/L Chloride (98-107) mmol/L Carbon Dioxide (22-30) mmol/L Anion Gap mmol/L BUN (7-17) mg/dL Creatinine (0.52-1.04) mg/dL Est GFR (CKD-EPI)AfAm (>60 ml/min/1.73 sqM) Est GFR (CKD-EPI)NonAf (>60 ml/min/1.73 sqM) Glucose (74-99) mg/dL Calcium (8.4-10.2) mg/dL Total Bilirubin (0.2-1.3) mg/dL AST (14-36) U/L ALT (9-52) U/L Alkaline Phosphatase (38-126) U/L Total Protein (6.3-8.2) g/dL Albumin (3.5-5.0) g/dL Amylase (30-110) U/L Lipase (23-300) U/L Urine Color Yellow Urine Appearance Cloudy H (Clear) Urine pH 6.0 (5.0-8.0) Ur Specific [place] 1.023 (1.001-1.035) Urine Protein Trace H (Negative) Urine Glucose (UA) Negative (Negative) Urine Ketones Negative (Negative) Urine Blood Trace H (Negative) Urine Nitrite Negative (Negative) Urine Bilirubin Negative (Negative) Urine Urobilinogen <2.0 (<2.0) mg/dL Ur Leukocyte Esterase Negative (Negative) Urine RBC 4 (0-5) /hpf Urine WBC 6 H (0-5) /hpf Ur Squamous Epith Cells 28 H (0-4) /hpf Urine Mucus Many H (None) /hpf Urine HCG, Qual (Not Detectd) Disposition Clinical Impression: Nausea vomiting and diarrhea Disposition: HOME SELF-CARE Condition: Good Instructions: Acute Nausea and Vomiting (ED), Acute Diarrhea (ED) Is patient prescribed a controlled substance at d/c from ED?: No Referrals: Hong Buenrostro MD [Primary Care Provider] - 1-2 days Time of Disposition: 10:14
[2018-02-18 09:30] LABS: Basophils % (A) 0 %; Eosinophils # (A) 0.1 k/uL (0-0.7); Eosinophils % (A) 1 %; HCT 41.2 % (34.0-46.0); HGB 13.8 gm/dL (11.4-16.0); Lymphocytes # (A) 2.9 k/uL (1.0-4.8); Lymphocytes % (A) 34 %; MCH 30.3 pg (25.0-35.0); MCHC 33.6 g/dL (31.0-37.0); MCV 90.2 fL (80.0-100.0); Mean Platelet Volume 6.8; Monocytes # (A) 0.3 k/uL (0-1.0); Monocytes % (A) 3 %; Neutrophils # (A) 5.1 k/uL (1.3-7.7); Neutrophils % (A) 60 %; Platelet Count 255 k/uL (150-450); RBC 4.57 m/uL (3.80-5.40); RDW 12.7 % (11.5-15.5); WBC 8.5 k/uL (3.8-10.6)
[2018-02-18 09:35] LABS: Appearance,Urine Cloudy (Clear); Bilirubin,Urine Negative (Negative); Blood,Urine Trace (Negative); Color,Urine Yellow; Glucose,Urine (UA) Negative (Negative); Ketones,Urine Negative (Negative); Leukocyte Esterase,Urine Negative (Negative); Mucus,Urine Many /hpf; Nitrite,Urine Negative (Negative); Protein,Urine Trace (Negative); RBC,Urine 4 /hpf (0-5); Specific Gravity,Urine 1.023 (1.001-1.035); Squamous Epithelial Cell,Urine 28 /hpf (0-4); Urobilinogen,Urine <2.0 mg/dL (<2.0); WBC,Urine 6 /hpf (0-5)
[2018-02-18 09:45] LABS: ALT 24 U/L (9-52); AST 20 U/L (14-36); Albumin 4.5 g/dL (3.5-5.0); Alkaline Phosphatase 81 U/L (38-126); Amylase 49 U/L (30-110); Anion Gap 11 mmol/L; Blood Urea Nitrogen 7 mg/dL (7-17); Calcium 9.7 mg/dL (8.4-10.2); Carbon Dioxide 23 mmol/L (22-30); Chloride 107 mmol/L (98-107); Glucose 93 mg/dL (74-99); Lipase 83 U/L (23-300); Potassium 4.2 mmol/L (3.5-5.1); Sodium 141 mmol/L (137-145); Total Bilirubin 0.7 mg/dL (0.2-1.3); Total Protein 7.7 g/dL (6.3-8.2)
[2018-02-18 10:20] VITALS: RESP 16; TEMP 98
[2018-02-18 10:24] VITALS: BP 121/76; PULSE 80
== END 2018-02-18 10:23 | disposition home or self-care (01) ==
LOC: EC 08:26
DX: R11.2 Nausea with vomiting, unspecified (principal); R19.7 Diarrhea, unspecified; R10.84 Generalized abdominal pain; Z90.49 Acquired absence of other specified parts of digestive tract; Z98.51 Tubal ligation status; Z88.6 Allergy status to analgesic agent; Z88.5 Allergy status to narcotic agent; Z91.040 Latex allergy status; Z91.048 Other nonmedicinal substance allergy status
CPT/HCPCS: 36415; 80053; 81001; 81025; 82150; 83690; 85025; 96360; 99284

== ENCOUNTER 2018-04-14 18:16 | Emergency (ER) | payer OTHER ==
[2018-04-14] MEDS ORDERED: KETOROLAC 30 MG/ML 1 ML VIAL IVP STA (19:02)
[2018-04-14] MEDS ORDERED: PROPOFOL 10 MG/ML 20 ML VIAL IV STA (19:03)
--- NOTE | 2018-04-14 19:06 | ED ---
General Adult HPI - General Chief complaint: Extremity Injury, Upper Stated complaint: rt shoulder injury from fall Source: patient Mode of arrival: ambulatory Limitations: no limitations - Related Data Home Medications Medication Instructions Recorded Confirmed No Known Home Medications 02/18/18 04/14/18 Allergies Allergy/AdvReac Type Severity Reaction Status Date / Time acetaminophen [From Lortab] Allergy Rash/Hives Verified 04/14/18 18:52 codeine Allergy Rash/Hives Verified 04/14/18 18:52 hydrocodone [From Lortab] Allergy Rash/Hives Verified 04/14/18 18:52 latex Allergy Rash/Hives Verified 04/14/18 18:52 adhesive tape Allergy Rash/Hives Uncoded 04/14/18 18:45 Review of Systems ROS Statement: Those systems with pertinent positive or pertinent negative responses have been documented in the HPI. ROS Other: All systems not noted in ROS Statement are negative. Past Medical History Past Medical History: No Reported History Additional Past Medical History / Comment(s): ON ANTIBIOTICS FOR RECENT SINUS INFECTION DR. KAPOOR AWARE History of Any Multi-Drug Resistant Organisms: None Reported Past Surgical History: Cholecystectomy, Tubal Ligation Past Anesthesia/Blood Transfusion Reactions: No Reported Reaction Past Psychological History: No Psychological Hx Reported Smoking Status: Never smoker Past Alcohol Use History: None Reported Past Drug Use History: None Reported - Past Family History Father Family Medical History: Cancer, Deep Vein Thrombosis (DVT) Mother Family Medical History: Deep Vein Thrombosis (DVT), Hypertension General Exam Limitations: no limitations Course Vital Signs 04/14/18 04/14/18 04/14/18 18:43 19:25 19:30 Temperature 97.8 F Pulse Rate 106 H 93 94 Respiratory 16 16 Rate Blood Pressure 161/99 O2 Sat by Pulse 99 98 97 Oximetry 04/14/18 04/14/18 04/14/18 19:45 20:10 20:13 Temperature Pulse Rate 93 85 85 Respiratory 18 20 22 Rate Blood Pressure 134/99 130/94 144/103 O2 Sat by Pulse 96 98 100 Oximetry 04/14/18 20:19 Temperature Pulse Rate 84 Respiratory 18 Rate Blood Pressure 123/101 O2 Sat by Pulse 100 Oximetry Procedures - Procedural Sedation Procedural Sedation Start Time: 20:17 Procedural Sedation Stop Time: 20:25 Indications: other ASA Class: I Mallampati Airway Score: 1 Preparation: ad setter applied, pulse oximeter, capnometry used, supplemental O2 applied, suction/airway equipment at bedside, IV secured IV Propofol Dose (mgs): 50 Complications: none Patient Tolerated Procedure: well Medical Decision Making - Medical Decision Making Dictation was produced using [employer] dictation software. please excuse any grammatical, word or spelling errors. Chief Complaint: 27-year-old female past medical history of right shoulder dislocations presents with right shoulder pain. History of Present Illness: Patient reports that prior to arrival she was stepping over a baby gait when she tripped. She fell onto her right side. She states that her arm was stuck then and she landed on her right shoulder. Patient states that she feels slightly numb to her whole right upper extremity. The ROS documented in this emergency department record has been reviewed and confirmed by me. Those systems with pertinent positive or negative responses have been documented in the HPI. All other systems are other negative and/or noncontributory. PHYSICAL EXAM: General Impression: Alert and oriented x3, acute distress HEENT: Normocephalic atraumatic, extra-ocular movements intact, pupils equal and reactive to light bilaterally, mucous membranes moist. Cardiovascular: Heart regular rate and rhythm, S1&S2 audible, no murmurs, rubs or gallops Chest: Lungs clear to auscultation bilaterally, no rhonchi, no wheeze, no rales Abdomen: Bowel sounds present, abdomen soft, non-tender, non-distended, no organomegaly Musculoskeletal: Diminished pulse in the right radial, paresthesias to the right upper extremity. Gross abnormality to the right shoulder. Neurological: CN II-XII grossly intact, no focal motor or sensory deficits noted Skin: Intact with no visualized rashes ED course: 27-year-old female presents with right shoulder pain. 106 heart rate , rest of vital signs are unremarkable.X-ray was performed found to be within acceptable limits. Patient given analgesia however still is not able to abduct her arm. Given history and physical examination there is still concern for shoulder dislocation. Procedural sedation was performed and did reveal good range of motion however there was some antalgia. Patient likely contuse her shoulder severely. Patient was observed in emergency department after procedural sedation found with stable medical condition. Patient discharged she was placed in a sling. Given referral to orthopedic surgery. Disposition Clinical Impression: Shoulder contusion Disposition: HOME SELF-CARE Condition: Good Instructions: Shoulder Pain (ED) Is patient prescribed a controlled substance at d/c from ED?: No Referrals: Hong Buenrostro MD [Primary Care Provider] - 1-2 days Time of Disposition: 20:56
[2018-04-14] MEDS ORDERED: MORPHINE SULFATE 4 MG/ML SYRINGE IVP PRN (19:11)
--- NOTE | 2018-04-14 19:49 | XR ---
EXAMINATION TYPE: XR shoulder limited RT DATE OF EXAM: 04/14/2018 COMPARISON: NONE HISTORY: Shoulder pain TECHNIQUE: 3 views FINDINGS: I see no fracture nor dislocation. Glenohumeral joint is intact. There are no pathologic ca lcifications. IMPRESSION: Negative right shoulder exam. No change.
[2018-04-14 20:21] VITALS: RESP 18
--- NOTE | 2018-04-14 20:47 | XR ---
EXAMINATION TYPE: XR shoulder limited RT DATE OF EXAM: 04/14/2018 COMPARISON: Today HISTORY: Post reduction TECHNIQUE: Single view FINDINGS: A single view shows no fracture nor dislocation. Glenohumeral joint is anatomic. There is n o change in position compared to the exam one and a half hours ago. IMPRESSION: Normal right shoulder.
[2018-04-14 21:25] VITALS: BP 125/90; PULSE 88; TEMP 98
== END 2018-04-14 21:25 | disposition home or self-care (01) ==
LOC: EC 18:16
DX: S40.011A Contusion of right shoulder, initial encounter (principal); Z88.5 Allergy status to narcotic agent; Z88.6 Allergy status to analgesic agent; Z91.040 Latex allergy status; Z91.048 Other nonmedicinal substance allergy status; W01.0XXA Fall on same level from slipping, tripping and stumbling without subsequent striking against object, initial encounter; Y93.89 Activity, other specified
CPT/HCPCS: 73020; 99283; 96374; 96375; J2270; J1885; J2704

== ENCOUNTER 2018-09-03 16:19 | Emergency (ER) | payer OTHER ==
[2018-09-03 16:23] VITALS: RESP 18
[2018-09-03] MEDS ORDERED: SODIUM CHLORIDE 0.9% 1,000 ML IV STA (16:27)
[2018-09-03] MEDS ORDERED: FAMOTIDINE 20 MG/2 ML VIAL IV STA (16:28)
[2018-09-03] MEDS ORDERED: DICYCLOMINE 20 MG TAB PO STA (16:38)
[2018-09-03] MEDS ORDERED: METOCLOPRAMIDE 5 MG/ML 2 ML VIAL IVP STA (16:39)
[2018-09-03 17:03] LABS: Basophils % (A) 0 %; Eosinophils # (A) 0.1 k/uL (0-0.7); Eosinophils % (A) 1 %; HCT 40.4 % (34.0-46.0); HGB 13.5 gm/dL (11.4-16.0); Lymphocytes # (A) 1.8 k/uL (1.0-4.8); Lymphocytes % (A) 17 %; MCH 29.9 pg (25.0-35.0); MCHC 33.5 g/dL (31.0-37.0); MCV 89.2 fL (80.0-100.0); Mean Platelet Volume 6.7; Monocytes # (A) 0.4 k/uL (0-1.0); Monocytes % (A) 4 %; Neutrophils % (A) 77 %; Platelet Count 293 k/uL (150-450); RBC 4.53 m/uL (3.80-5.40); WBC 10.4 k/uL (3.8-10.6)
[2018-09-03 17:06] LABS: Appearance,Urine Cloudy (Clear); Bilirubin,Urine Negative (Negative); Blood,Urine Moderate (Negative); Color,Urine Yellow; Glucose,Urine (UA) Negative (Negative); Ketones,Urine Negative (Negative); Leukocyte Esterase,Urine Small (Negative); Mucus,Urine Many /hpf; Nitrite,Urine Negative (Negative); PH, Urine 5.5 (5.0-8.0); Protein,Urine Trace (Negative); RBC,Urine 5 /hpf (0-5); Specific Gravity,Urine 1.035 (1.001-1.035); Squamous Epithelial Cell,Urine 14 /hpf (0-4)
[2018-09-03 17:18] LABS: ALT 11 U/L (9-52); AST 16 U/L (14-36); Albumin 4.6 g/dL (3.5-5.0); Alkaline Phosphatase 85 U/L (38-126); Amylase 58 U/L (30-110); Anion Gap 8 mmol/L; Blood Urea Nitrogen 9 mg/dL (7-17); Calcium 9.3 mg/dL (8.4-10.2); Carbon Dioxide 25 mmol/L (22-30); Chloride 106 mmol/L (98-107); Glucose 100 mg/dL (74-99); Lipase 86 U/L (23-300); Potassium 3.9 mmol/L (3.5-5.1); Sodium 139 mmol/L (137-145); Total Bilirubin 0.6 mg/dL (0.2-1.3); Total Protein 7.5 g/dL (6.3-8.2)
--- NOTE | 2018-09-03 17:40 | ED ---
Abdominal Pain HPI - General Chief Complaint: Abdominal Pain Stated Complaint: Stomach pain Time Seen by Provider: 09/03/18 16:26 Source: patient, RN notes reviewed Mode of arrival: ambulatory Limitations: no limitations - History of Present Illness Initial Comments: 19-year-old female presents emergency from with chief complaint of abdominal pain. Patient states has been present for last few days worsening. States it's severe at times. It starts in her upper abdomen and radiates down. Patient states there is always a dull achy pain but when she has any severe cramps that the pain is much worse. Patient denies any current dysuria or hematuria. She states she's having intermittent change in stool habits. Patient denies fever, chills she has had a prior tube ligation and cholecystectomy. Patient denies any known fever, chills, chest pain or shortness of breath. Patient states nothing really makes her pain feel better or worse at this time. - Related Data Previous Rx's Medication Instructions Recorded Dicyclomine [Bentyl] 20 mg PO TID #30 tablet 09/03/18 RX: Omeprazole [PriLOSEC] 20 mg PO AC-BRKFST #14 cap 09/03/18 Allergies Allergy/AdvReac Type Severity Reaction Status Date / Time acetaminophen [From Lortab] Allergy Rash/Hives Verified 09/03/18 16:23 codeine Allergy Rash/Hives Verified 09/03/18 16:23 hydrocodone [From Lortab] Allergy Rash/Hives Verified 09/03/18 16:23 latex Allergy Rash/Hives Verified 09/03/18 16:23 adhesive tape Allergy Rash/Hives Uncoded 09/03/18 16:23 Review of Systems ROS Statement: Those systems with pertinent positive or pertinent negative responses have been documented in the HPI. ROS Other: All systems not noted in ROS Statement are negative. Past Medical History Past Medical History: No Reported History Additional Past Medical History / Comment(s): ON ANTIBIOTICS FOR RECENT SINUS INFECTION DR. KAPOOR AWARE History of Any Multi-Drug Resistant Organisms: None Reported Past Surgical History: Cholecystectomy, Tubal Ligation Past Anesthesia/Blood Transfusion Reactions: No Reported Reaction Past Psychological History: No Psychological Hx Reported Smoking Status: Never smoker Past Alcohol Use History: None Reported Past Drug Use History: None Reported - Past Family History Father Family Medical History: Cancer, Deep Vein Thrombosis (DVT) Mother Family Medical History: Deep Vein Thrombosis (DVT), Hypertension General Exam Limitations: no limitations General appearance: alert, in no apparent distress Head exam: Present: atraumatic, normocephalic, normal inspection ENT exam: Present: normal exam, mucous membranes moist Neck exam: Present: normal inspection. Absent: tenderness, meningismus, lymphadenopathy Respiratory exam: Present: normal lung sounds bilaterally. Absent: respiratory distress, wheezes, rales, rhonchi, stridor Cardiovascular Exam: Present: regular rate (Heart rate 92 on exam tachycardic at triage), normal rhythm, normal heart sounds. Absent: systolic murmur, diastolic murmur, rubs, gallop, clicks GI/Abdominal exam: Present: soft, tenderness (Moderate upper abdominal tenderness), normal bowel sounds. Absent: distended, guarding, rebound, rigid Back exam: Absent: CVA tenderness (R), CVA tenderness (L) Skin exam: Present: warm, dry, intact, normal color. Absent: rash Course Vital Signs 09/03/18 09/03/18 09/03/18 16:21 16:45 18:12 Temperature 98.3 F 99.1 F 97.8 F Pulse Rate 116 H 90 Respiratory 18 18 Rate Blood Pressure 157/91 123/73 O2 Sat by Pulse 97 98 Oximetry Medical Decision Making - Medical Decision Making 27-year-old female presented emergency department for upper abdominal pain that radiates down. Labs CT urinalysis obtained patient clinically has gastritis, IBS symptoms. Patient be discharged with omeprazole and Bentyl. Patient follow-up with GI and return for any worsening symptoms. - Lab Data Result diagrams: 09/03/18 16:40 09/03/18 16:40 Lab Results 09/03/18 09/03/18 09/03/18 Range/Units 16:40 16:40 16:40 WBC (3.8-10.6) k/uL RBC (3.80-5.40) m/uL Hgb (11.4-16.0) gm/dL Hct (34.0-46.0) % MCV (80.0-100.0) fL MCH (25.0-35.0) pg MCHC (31.0-37.0) g/dL RDW (11.5-15.5) % Plt Count (150-450) k/uL Neutrophils % % Lymphocytes % % Monocytes % % Eosinophils % % Basophils % % Neutrophils # (1.3-7.7) k/uL Lymphocytes # (1.0-4.8) k/uL Monocytes # (0-1.0) k/uL Eosinophils # (0-0.7) k/uL Basophils # (0-0.2) k/uL Sodium 139 (137-145) mmol/L Potassium 3.9 (3.5-5.1) mmol/L Chloride 106 (98-107) mmol/L Carbon Dioxide 25 (22-30) mmol/L Anion Gap 8 mmol/L BUN 9 (7-17) mg/dL Creatinine 0.69 (0.52-1.04) mg/dL Est GFR (CKD-EPI)AfAm >90 (>60 ml/min/1.73 sqM) Est GFR (CKD-EPI)NonAf >90 (>60 ml/min/1.73 sqM) Glucose 100 H (74-99) mg/dL Calcium 9.3 (8.4-10.2) mg/dL Total Bilirubin 0.6 (0.2-1.3) mg/dL AST 16 (14-36) U/L ALT 11 (9-52) U/L Alkaline Phosphatase 85 (38-126) U/L Total Protein 7.5 (6.3-8.2) g/dL Albumin 4.6 (3.5-5.0) g/dL Amylase 58 (30-110) U/L Lipase 86 (23-300) U/L Urine Color Yellow Urine Appearance Cloudy H (Clear) Urine pH 5.5 (5.0-8.0) Ur Specific [place] 1.035 (1.001-1.035) Urine Protein Trace H (Negative) Urine Glucose (UA) Negative (Negative) Urine Ketones Negative (Negative) Urine Blood Moderate H (Negative) Urine Nitrite Negative (Negative) Urine Bilirubin Negative (Negative) Urine Urobilinogen 2.0 (<2.0) mg/dL Ur Leukocyte Esterase Small H (Negative) Urine RBC 5 (0-5) /hpf Urine WBC 3 (0-5) /hpf Ur Squamous Epith Cells 14 H (0-4) /hpf Urine Mucus Many H (None) /hpf Urine HCG, Qual Not Detected (Not Detectd) 09/03/18 Range/Units 16:40 WBC 10.4 (3.8-10.6) k/uL RBC 4.53 (3.80-5.40) m/uL Hgb 13.5 (11.4-16.0) gm/dL Hct 40.4 (34.0-46.0) % MCV 89.2 (80.0-100.0) fL MCH 29.9 (25.0-35.0) pg MCHC 33.5 (31.0-37.0) g/dL RDW 13.0 (11.5-15.5) % Plt Count 293 (150-450) k/uL Neutrophils % 77 % Lymphocytes % 17 % Monocytes % 4 % Eosinophils % 1 % Basophils % 0 % Neutrophils # 8.0 H (1.3-7.7) k/uL Lymphocytes # 1.8 (1.0-4.8) k/uL Monocytes # 0.4 (0-1.0) k/uL Eosinophils # 0.1 (0-0.7) k/uL Basophils # 0.0 (0-0.2) k/uL Sodium (137-145) mmol/L Potassium (3.5-5.1) mmol/L Chloride (98-107) mmol/L Carbon Dioxide (22-30) mmol/L Anion Gap mmol/L BUN (7-17) mg/dL Creatinine (0.52-1.04) mg/dL Est GFR (CKD-EPI)AfAm (>60 ml/min/1.73 sqM) Est GFR (CKD-EPI)NonAf (>60 ml/min/1.73 sqM) Glucose (74-99) mg/dL Calcium (8.4-10.2) mg/dL Total Bilirubin (0.2-1.3) mg/dL AST (14-36) U/L ALT (9-52) U/L Alkaline Phosphatase (38-126) U/L Total Protein (6.3-8.2) g/dL Albumin (3.5-5.0) g/dL Amylase (30-110) U/L Lipase (23-300) U/L Urine Color Urine Appearance (Clear) Urine pH (5.0-8.0) Ur Specific [place] (1.001-1.035) Urine Protein (Negative) Urine Glucose (UA) (Negative) Urine Ketones (Negative) Urine Blood (Negative) Urine Nitrite (Negative) Urine Bilirubin (Negative) Urine Urobilinogen (<2.0) mg/dL Ur Leukocyte Esterase (Negative) Urine RBC (0-5) /hpf Urine WBC (0-5) /hpf Ur Squamous Epith Cells (0-4) /hpf Urine Mucus (None) /hpf Urine HCG, Qual (Not Detectd) Disposition Clinical Impression: Abdominal pain, Gastritis Disposition: HOME SELF-CARE Condition: Stable Instructions (If sedation given, give patient instructions): Abdominal Pain (ED) Additional Instructions: Please return to the Emergency Department if symptoms worsen or any other concerns. Prescriptions: Dicyclomine [Bentyl] 20 mg PO TID #30 tablet RX: Omeprazole [PriLOSEC] 20 mg PO AC-BRKFST #14 cap Is patient prescribed a controlled substance at d/c from ED?: No Referrals: None,Stated [Primary Care Provider] - 1-2 days Craig Kelly MD [STAFF PHYSICIAN] - 1-2 days Time of Disposition: 19:08
[2018-09-03 18:13] VITALS: BP 123/73; PULSE 90; TEMP 97.8
--- NOTE | 2018-09-03 18:37 | CT ---
EXAMINATION TYPE: CT abdomen pelvis w con DATE OF EXAM: 09/03/2018 COMPARISON: Prior CT 04/15/2011 HISTORY: Pt c/o sharp pains in epigastric region x3 weeks. Pt states food/water make it worse, causin g vomiting CT DLP: 1021.4 mGycm Automated exposure control for dose reduction was used. TECHNIQUE: Helical acquisition of images from the lung bases through the pelvis have been completed. CONTRAST: Performed without Oral Contrast and with IV Contrast, patient injected with 100 mL of Isovue 300. FINDINGS: There is a small umbilical hernia. LUNG BASES: No significant abnormality is appreciated. AORTA: No significant abnormality is appreciated. LIVER/GB: Patient is post cholecystectomy. No evident liver mass. Liver shows low attenuation likely due to hepatic steatosis. PANCREAS: No significant abnormality is seen. SPLEEN: No significant abnormality is seen. ADRENALS: No significant abnormality is seen. KIDNEYS: Small cortical defect at the upper pole left kidney may reflect a focal area of scarring, no hydronephrosis or renal stones bilaterally, no ureteral calculus. REPRODUCTIVE ORGANS: No significant abnormality is seen BOWEL: No significant abnormality is seen. FREE AIR: No Free Air visible. ASCITES: None visible. PELVIC ADENOPATHY: None visualized. RETROPERITONEAL ADENOPATHY: No Retroperitoneal Adenopathy visible. URINARY BLADDER: No significant abnormality is seen. OSSEOUS STRUCTURES: No significant abnormality is seen. IMPRESSION: POSTOP CHANGES. POSSIBLE HEPATIC STEATOSIS.
== END 2018-09-03 19:14 | disposition home or self-care (01) ==
LOC: EC 16:19
DX: K29.70 Gastritis, unspecified, without bleeding (principal); Z88.5 Allergy status to narcotic agent; Z88.6 Allergy status to analgesic agent; Z91.040 Latex allergy status; Z91.048 Other nonmedicinal substance allergy status; Z90.49 Acquired absence of other specified parts of digestive tract; Z98.51 Tubal ligation status
CPT/HCPCS: 36415; 80053; 82150; 83690; 85025; 81001; 81025; 74177; 99284; 96374; 96375; 96361 ×2; J2765

== ENCOUNTER 2019-05-13 14:42 | Emergency (ER) | payer OTHER ==
[2019-05-13 14:58] VITALS: BP 132/95; PULSE 76; RESP 18; TEMP 98
[2019-05-13] MEDS ORDERED: ACETAMINOPHEN TAB 500 MG TAB PO STA (15:05)
--- NOTE | 2019-05-13 15:13 | ED ---
General Adult HPI - General Chief complaint: Extremity Injury, Upper Stated complaint: Wrist injury Time Seen by Provider: 05/13/19 14:59 Source: patient, RN notes reviewed, old records reviewed Mode of arrival: ambulatory Limitations: no limitations - History of Present Illness Initial comments: 28-year-old female presents to the emergency department for a chief complaint of right wrist pain. Patient states that 3 days ago she fell down a few stairs and caught herself on her right wrist. Patient states that she has had pain along the ulnar aspect of the right wrist since that time. States it hurts to flex and extend the right wrist. Denies any pain along the radial aspect of the right wrist. Denies any other injuries. Denies any pain in the right hand.Patient has no other complaints at this time including shortness of breath, chest pain, abdominal pain, nausea or vomiting, headache, or visual changes. - Related Data Home Medications Medication Instructions Recorded Confirmed Ibuprofen [Motrin] 600 mg PO DIRECTED PRN 05/13/19 05/13/19 Allergies Allergy/AdvReac Type Severity Reaction Status Date / Time acetaminophen [From Lortab] Allergy Rash/Hives Verified 05/13/19 15:24 codeine Allergy Rash/Hives Verified 05/13/19 15:24 hydrocodone [From Lortab] Allergy Rash/Hives Verified 05/13/19 15:24 latex Allergy Rash/Hives Verified 05/13/19 15:24 adhesive tape Allergy Rash/Hives Uncoded 05/13/19 15:24 Review of Systems ROS Statement: Those systems with pertinent positive or pertinent negative responses have been documented in the HPI. ROS Other: All systems not noted in ROS Statement are negative. Past Medical History Past Medical History: No Reported History Additional Past Medical History / Comment(s): ON ANTIBIOTICS FOR RECENT SINUS INFECTION DR. KAPOOR AWARE History of Any Multi-Drug Resistant Organisms: None Reported Past Surgical History: Cholecystectomy, Tubal Ligation Past Anesthesia/Blood Transfusion Reactions: No Reported Reaction Past Psychological History: No Psychological Hx Reported Smoking Status: Never smoker Past Alcohol Use History: None Reported Past Drug Use History: None Reported - Past Family History Father Family Medical History: Cancer, Deep Vein Thrombosis (DVT) Mother Family Medical History: Deep Vein Thrombosis (DVT), Hypertension General Exam Limitations: no limitations General appearance: alert, in no apparent distress Head exam: Present: atraumatic, normocephalic, normal inspection Eye exam: Present: normal appearance, PERRL, EOMI. Absent: scleral icterus, conjunctival injection, periorbital swelling ENT exam: Present: normal exam, mucous membranes moist Neck exam: Present: normal inspection. Absent: tenderness, meningismus, lympha denopathy Respiratory exam: Present: normal lung sounds bilaterally. Absent: respiratory distress, wheezes, rales, rhonchi, stridor Cardiovascular Exam: Present: regular rate, normal rhythm, normal heart sounds. Absent: systolic murmur, diastolic murmur, rubs, gallop, clicks Extremities exam: Present: tenderness (Tenderness along the ulnar aspect of the right wrist.), normal capillary refill (Capillary refill less than 2 seconds, radial pulse 2+ in the right upper extremity.), other (senation intact in the right upper extremity including all digits of the right hand). Absent: full ROM (Patient has flexor and extensor mechanisms of the right wrist intact. However this does elicit pain so range of motion is somewhat limited.), pedal edema, joint swelling (No obvious edema. No step-off.), calf tenderness Neurological exam: Present: alert Course Vital Signs 05/13/19 14:55 Temperature 98.0 F Pulse Rate 76 Respiratory 18 Rate Blood Pressure 132/95 O2 Sat by Pulse 100 Oximetry Procedures - Orthopedic Splinting/Casting Injury #1 Side: right Upper Extremity Injury Location: wrist Upper Extremity Immobilizer: thumb spica Additional Comments: Neurovascular status intact before and after splint applied. Medical Decision Making - Medical Decision Making HPI and physical exam as documented. X-ray of the right wrist shows no acute osseous abnormality. However there is a 4 mm rounded lucency distal pole of the scaphoid that could represent a degenerative subcortical cyst or incidental intraosseous ganglion. However given recent history of trauma I discussed this case with Dr. Hill who recommends a thumb spica and having her follow up with orthopedics to ensure that there is no trauma to the scaphoid. Patient will return here if she has any worsening symptoms. Otherwise she will take Motrin and Tylenol for pain. Disposition Clinical Impression: Wrist injury Disposition: HOME SELF-CARE Condition: Good Instructions (If sedation given, give patient instructions): Wrist Injury (ED) Additional Instructions: Please take Motrin and Tylenol for pain. Please rest ice and elevate the right wrist. Please follow-up with orthopedics in one to 2 days. Return here to the emergency department if your developing any worsening symptoms. Is patient prescribed a controlled substance at d/c from ED?: No Referrals: Natalia Teran RN [REGISTERED NURSE] - 1-2 days Robson Talavera DO [Doctor of Osteopathic Medicine] - 1-2 days Time of Disposition: 15:50
--- NOTE | 2019-05-13 15:30 | XR ---
EXAMINATION TYPE: XR wrist complete RT DATE OF EXAM: 05/13/2019 COMPARISON: NONE HISTORY: 28-year-old female ulnar aspect pain after fall TECHNIQUE: 4 views FINDINGS: Radiocarpal and distal radioulnar joint as well as the midcarpal compartment appear intact. No acute fracture, subluxation, or dislocation is seen. A nonspecific 4 mm geode within the distal p ole of the scaphoid. IMPRESSION: 1. No acute osseous abnormality seen. 2. A 4 mm round lucency distal pole of the scaphoid could represent a degenerative subcortical cyst o r incidental intraosseous ganglion.
== END 2019-05-13 16:03 | disposition home or self-care (01) ==
LOC: EC 14:42
DX: S69.91XA Unspecified injury of right wrist, hand and finger(s), initial encounter (principal); Z88.5 Allergy status to narcotic agent; Z88.6 Allergy status to analgesic agent; Z91.040 Latex allergy status; Z91.048 Other nonmedicinal substance allergy status; W10.9XXA Fall (on) (from) unspecified stairs and steps, initial encounter
CPT/HCPCS: 29125; 99284

== ENCOUNTER 2019-10-09 15:13 | Emergency (ER) | payer OTHER ==
[2019-10-09 15:44] VITALS: RESP 18
[2019-10-09] MEDS ORDERED: DIPH,PERTUS(ACELL)TETVAC-LF 0.5 ML VIAL IM ONE (15:49)
[2019-10-09] MEDS ORDERED: HYDROmorphone 1 MG/ML 1 ML SYRINGE IM STA (15:49)
--- NOTE | 2019-10-09 16:04 | ED ---
Lower Extremity Injury HPI - General Chief Complaint: Extremity Injury, Lower Stated Complaint: fall down stairs Time Seen by Provider: 10/09/19 15:46 Source: patient, RN notes reviewed Mode of arrival: wheelchair Limitations: physical limitation - History of Present Illness Initial Comments: This a 28-year-old female sent emergency Department with chief complaint of right ankle and foot injury. Patient states that she went to grab the dog that was trying her out the door states that she misstepped on her stairs causing injury painting on a concrete 4. Patient has a small abrasion/laceration to her right foot, swelling noted right ankle. Denies head injury no loss conscious. - Related Data Home Medications Medication Instructions Recorded Confirmed Ibuprofen [Motrin] 600 mg PO DIRECTED PRN 05/13/19 05/13/19 Previous Rx's Medication Instructions Recorded Cephalexin [Keflex] 500 mg PO Q6HR #28 cap 10/09/19 Allergies Allergy/AdvReac Type Severity Reaction Status Date / Time acetaminophen [From Lortab] Allergy Rash/Hives Verified 10/09/19 15:44 codeine Allergy Rash/Hives Verified 10/09/19 15:44 hydrocodone [From Lortab] Allergy Rash/Hives Verified 10/09/19 15:44 latex Allergy Rash/Hives Verified 10/09/19 15:44 adhesive tape Allergy Rash/Hives Uncoded 10/09/19 15:44 Review of Systems ROS Statement: Those systems with pertinent positive or pertinent negative responses have been documented in the HPI. ROS Other: All systems not noted in ROS Statement are negative. Past Medical History Past Medical History: No Reported History Additional Past Medical History / Comment(s): ON ANTIBIOTICS FOR RECENT SINUS INFECTION DR. KAPOOR AWARE History of Any Multi-Drug Resistant Organisms: None Reported Past Surgical History: Cholecystectomy, Tubal Ligation Past Anesthesia/Blood Transfusion Reactions: No Reported Reaction Past Psychological History: No Psychological Hx Reported Smoking Status: Never smoker Past Alcohol Use History: None Reported Past Drug Use History: None Reported - Past Family History Father Family Medical History: Cancer, Deep Vein Thrombosis (DVT) Mother Family Medical History: Deep Vein Thrombosis (DVT), Hypertension General Exam Limitations: physical limitation General appearance: alert, in no apparent distress Head exam: Present: atraumatic, normocephalic, normal inspection Respiratory exam: Present: normal lung sounds bilaterally. Absent: respiratory distress, wheezes, rales, rhonchi, stridor Cardiovascular Exam: Present: normal rhythm, tachycardia (Heart rate 110 on exam), normal heart sounds. Absent: systolic murmur, diastolic murmur, rubs, gallop, clicks Extremities exam: Present: other (Right ankle there is moderate swelling, right foot there is mild swelling lateral portion small abrasion noted no active bleeding neurovascular intact no proximal tib-fib tenderness) Back exam: Present: full ROM. Absent: paraspinal tenderness, vertebral tenderness Neurological exam: Present: alert, oriented X3 Course Vital Signs 10/09/19 15:38 Temperature 98.8 F Pulse Rate 146 H Respiratory 18 Rate Blood Pressure 145/94 O2 Sat by Pulse 96 Oximetry Procedures - Orthopedic Splinting/Casting Injury #1 Side: right Lower Extremity Injury Location: short leg, ankle Lower Extremity Immobilizer: posterior splint Other Orthopedic Equipment: crutches Medical Decision Making - Medical Decision Making 28-year-old female present for right foot and ankle injury. There is small avulsion fracture of the distal fibula. Patient does have an abrasion on her foot which was cleaned. Patient placed on antibiotics given that she has a fracture proximal to this. Patient will follow-up with patient to for any worsening symptoms. Disposition Clinical Impression: Closed fracture of right distal fibula Disposition: HOME SELF-CARE Condition: Stable Instructions (If sedation given, give patient instructions): Ankle Fracture (ED) Additional Instructions: Please return to the Emergency Department if symptoms worsen or any other concerns. Prescriptions: Cephalexin [Keflex] 500 mg PO Q6HR #28 cap Is patient prescribed a controlled substance at d/c from ED?: No Referrals: Moises Brito MD [Primary Care Provider] - 1-2 days Logan Pierre MD [Medical Doctor] - 1-2 days Time of Disposition: 16:30
--- NOTE | 2019-10-09 16:25 | XR ---
Right foot and right ankle HISTORY: Trauma and pain 3 views of the right ankle and 3 views of the right foot Soft tissue swelling is noted at the lateral ankle, there are small ossific densities distally which likely represent avulsion injuries distal to the fibula. There is no dislocation. There is possible j oint effusion. IMPRESSION: Avulsion fracture distal fibula.
[2019-10-09 17:07] VITALS: BP 139/78; PULSE 88; TEMP 97.9
== END 2019-10-09 17:07 | disposition home or self-care (01) ==
LOC: EC 15:13
DX: S82.831A Other fracture of upper and lower end of right fibula, initial encounter for closed fracture (principal); Z23 Encounter for immunization; Z88.5 Allergy status to narcotic agent; Z91.040 Latex allergy status; Z91.048 Other nonmedicinal substance allergy status; W10.9XXA Fall (on) (from) unspecified stairs and steps, initial encounter; Y93.89 Activity, other specified
CPT/HCPCS: 73610; 73630; 90715; 99285; 90471; 96372; 29515; J1170; 99283

== ENCOUNTER 2019-11-29 14:32 | Emergency (ER) | payer OTHER ==
[2019-11-29] MEDS ORDERED: IBUPROFEN 600 MG TAB PO STA (14:53)
[2019-11-29] MEDS ORDERED: guaiFENesin-DM 600/30MG 1 EACH TAB.ER.12H PO STA (14:53)
[2019-11-29] MEDS ORDERED: IPRATROPIUM-ALBUTEROL 3 ML NEB INHALATION STA (14:53)
--- NOTE | 2019-11-29 15:37 | XR ---
EXAMINATION TYPE: XR chest 2V DATE OF EXAM: 11/29/2019 COMPARISON: NONE HISTORY: Chest pain TECHNIQUE: Frontal and lateral views of the chest are obtained. FINDINGS: There is no focal air space opacity. No evidence for pneumothorax. No pleural effusion. The cardiac silhouette size is within normal limits. The osseous structures are grossly intact. IMPRESSION: 1. No acute cardiopulmonary process.
--- NOTE | 2019-11-29 15:58 | ED ---
General Adult HPI - General Chief complaint: ENT Stated complaint: Ear Pain, Cough Time Seen by Provider: 11/29/19 14:40 Source: patient Mode of arrival: ambulatory Limitations: no limitations - History of Present Illness Initial comments: 29-year-old female patient presents to the emergency department today for evaluation of cough, shortness of breath, and sore throat. States she is also having bilateral ear pressure with pain to the left side. Patient states she started feeling symptoms a couple of days ago which have worsened. She denies any fever or chills. Denies any sputum production. Denies any wheezing. Denies history of smoking. Patient states that her child is sick with upper respiratory infection. She denies any nasal congestion or drainage. Patient denies any recent rash, chest pain, abdominal pain, nausea, vomiting, diarrhea, constipation, back pain, numbness, tingling, dizziness, weakness, hematuria, dysuria, urinary urgency, urinary frequency, headache, visual changes, or any other complaints. - Related Data Home Medications Medication Instructions Recorded Confirmed Ketoconazole 2% Shampoo [Nizoral] 1 applic TOPICAL DAILY 10/09/19 10/09/19 Previous Rx's Medication Instructions Recorded Cephalexin [Keflex] 500 mg PO Q6HR #28 cap 10/09/19 Albuterol Sulfate [Proair Hfa] 1 - 2 puff INHALATION Q6HR PRN #1 11/29/19 inhaler Ibuprofen [Motrin] 600 mg PO Q8HR PRN #30 tab 11/29/19 guaiFENesin-DM 600/30MG [Mucinex 1 each PO Q12HR #10 tab.er.12h 11/29/19 Dm] Allergies Allergy/AdvReac Type Severity Reaction Status Date / Time acetaminophen [From Lortab] Allergy Rash/Hives Verified 11/29/19 14:35 codeine Allergy Rash/Hives Verified 11/29/19 14:35 hydrocodone [From Lortab] Allergy Rash/Hives Verified 11/29/19 14:35 latex Allergy Rash/Hives Verified 11/29/19 14:35 adhesive tape Allergy Rash/Hives Uncoded 11/29/19 14:35 Review of Systems ROS Statement: Those systems with pertinent positive or pertinent negative responses have been documented in the HPI. ROS Other: All systems not noted in ROS Statement are negative. Past Medical History Past Medical History: No Reported History Additional Past Medical History / Comment(s): ON ANTIBIOTICS FOR RECENT SINUS INFECTION DR. KAPOOR AWARE History of Any Multi-Drug Resistant Organisms: None Reported Past Surgical History: Cholecystectomy, Tubal Ligation Past Anesthesia/Blood Transfusion Reactions: No Reported Reaction Past Psychological History: No Psychological Hx Reported Smoking Status: Never smoker Past Alcohol Use History: None Reported Past Drug Use History: None Reported - Past Family History Father Family Medical History: Cancer, Deep Vein Thrombosis (DVT) Mother Family Medical History: Deep Vein Thrombosis (DVT), Hypertension General Exam Limitations: no limitations General appearance: alert, in no apparent distress, other (This is a well- developed, well-nourished adult female patient in no acute distress. Vital signs upon presentation are temperature 98.1F, pulse 111, respirations 20, blood pressure 145/99, pulse ox 99% on room air) Eye exam: Present: normal appearance, PERRL, EOMI. Absent: scleral icterus, conjunctival injection, periorbital swelling ENT exam: Present: normal exam, mucous membranes moist, TM's normal bilaterally. Absent: normal oropharynx (Pharyngeal erythema) Neck exam: Present: normal inspection. Absent: tenderness, meningismus, lymphadenopathy Respiratory exam: Present: normal lung sounds bilaterally. Absent: respiratory distress, wheezes, rales, rhonchi, stridor Cardiovascular Exam: Present: regular rate, normal rhythm, normal heart sounds. Absent: systolic murmur, diastolic murmur, rubs, gallop, clicks GI/Abdominal exam: Present: soft, normal bowel sounds. Absent: distended, tenderness, guarding, rebound, rigid Neurological exam: Present: alert, oriented X3, CN II-XII intact Psychiatric exam: Present: normal affect, normal mood Skin exam: Present: warm, dry, intact, normal color. Absent: rash Course Vital Signs 11/29/19 11/29/19 11/29/19 14:34 15:33 15:43 Temperature 98.1 F Pulse Rate 111 H 108 H 105 H Respiratory 20 Rate Blood Pressure 145/99 O2 Sat by Pulse 99 Oximetry 11/29/19 16:19 Temperature 98.5 F Pulse Rate 99 Respiratory 18 Rate Blood Pressure 141/108 O2 Sat by Pulse 97 Oximetry Medical Decision Making - Medical Decision Making 29-year-old female patient presents to the emergency department today for roxann luation of sore throat, cough, and shortness of breath. Physical examination reveals clear equal lung sounds. There is some pharyngeal erythema. No evidence for otitis media. Chest x-ray was negative. We did send coronavirus swab. She'll be discharged with prescriptions for Mucinex D and ibuprofen. She is instructed to follow-up with her primary care physician for recheck in 1-2 days. She is instructed to quarantine until she has her test results back. Return parameters were discussed in detail. She verbalizes understanding and agrees with this plan. - Radiology Data Radiology results: report reviewed, image reviewed Two-view x-ray of the chest is obtained. Report was reviewed in its entirety. Impression by Dr. Aguayo shows no acute cardiopulmonary process. Disposition Clinical Impression: Upper respiratory infection Disposition: HOME SELF-CARE Condition: Good Instructions (If sedation given, give patient instructions): Upper Respiratory Infection (ED), Viral Syndrome (ED) Additional Instructions: Rest. Increase fluids. Take medications as directed. Quarantine into the find out your test results. Follow-up through primary care physician for recheck in 1-2 days. Prescriptions: Ibuprofen [Motrin] 600 mg PO Q8HR PRN #30 tab PRN Reason: Pain guaiFENesin-DM 600/30MG [Mucinex Dm] 1 each PO Q12HR #10 tab.er.12h Albuterol Sulfate [Proair Hfa] 1 - 2 puff INHALATION Q6HR PRN #1 inhaler PRN Reason: Shortness Of Breath Is patient prescribed a controlled substance at d/c from ED?: No Referrals: Moises Brito MD [Primary Care Provider] - 1-2 days Time of Disposition: 15:58
[2019-11-29 16:26] VITALS: BP 141/108; PULSE 99; RESP 18; TEMP 98.5
== END 2019-11-29 16:27 | disposition home or self-care (01) ==
LOC: EC 14:32
DX: J06.9 Acute upper respiratory infection, unspecified (principal); Z20.828 Contact with and (suspected) exposure to other viral communicable diseases; Z88.6 Allergy status to analgesic agent; Z88.5 Allergy status to narcotic agent; Z91.040 Latex allergy status; Z91.048 Other nonmedicinal substance allergy status
CPT/HCPCS: 94640; 71046; 99283; U0003

== ENCOUNTER 2019-12-24 08:35 | Emergency (ER) | payer OTHER ==
[2019-12-24 08:41] VITALS: BP 157/108; PULSE 94; RESP 18; TEMP 98.4
--- NOTE | 2019-12-24 08:52 | ED ---
Lower Extremity Injury HPI - General Chief Complaint: Extremity Injury, Lower Stated Complaint: R ankle injury, Fall Time Seen by Provider: 12/24/19 08:42 Source: patient Mode of arrival: ambulatory Limitations: no limitations - History of Present Illness Initial Comments: Patient is a 29-year-old female presenting to the emergency Department with complaints of a right ankle injury. Patient states she was letting her dog outside when the dog ran under her feet and she lost her footing falling forward mostly onto her right ankle. She states she recently got her cast off of her right ankle due to a fibular fracture the beginning of November. She denies any other injuries from this fall. She states she is unable to bear any weight. She has no further complaints at this time. - Related Data Home Medications Medication Instructions Recorded Confirmed Ketoconazole 2% Shampoo [Nizoral] 1 applic TOPICAL DAILY 10/09/19 10/09/19 Previous Rx's Medication Instructions Recorded Cephalexin [Keflex] 500 mg PO Q6HR #28 cap 10/09/19 Albuterol Sulfate [Proair Hfa] 1 - 2 puff INHALATION Q6HR PRN #1 11/29/19 inhaler Ibuprofen [Motrin] 600 mg PO Q8HR PRN #30 tab 11/29/19 guaiFENesin-DM 600/30MG [Mucinex 1 each PO Q12HR #10 tab.er.12h 11/29/19 Dm] Allergies Allergy/AdvReac Type Severity Reaction Status Date / Time acetaminophen [From Lortab] Allergy Rash/Hives Verified 12/24/19 08:38 codeine Allergy Rash/Hives Verified 12/24/19 08:38 hydrocodone [From Lortab] Allergy Rash/Hives Verified 12/24/19 08:38 latex Allergy Rash/Hives Verified 12/24/19 08:38 adhesive tape Allergy Rash/Hives Uncoded 11/29/19 14:35 Review of Systems ROS Statement: Those systems with pertinent positive or pertinent negative responses have been documented in the HPI. ROS Other: All systems not noted in ROS Statement are negative. Past Medical History Past Medical History: No Reported History Additional Past Medical History / Comment(s): ON ANTIBIOTICS FOR RECENT SINUS INFECTION DR. KAPOOR AWARE History of Any Multi-Drug Resistant Organisms: None Reported Past Surgical History: Cholecystectomy, Tubal Ligation Past Anesthesia/Blood Transfusion Reactions: No Reported Reaction Past Psychological History: No Psychological Hx Reported Smoking Status: Never smoker Past Alcohol Use History: None Reported Past Drug Use History: None Reported - Past Family History Father Family Medical History: Cancer, Deep Vein Thrombosis (DVT) Mother Family Medical History: Deep Vein Thrombosis (DVT), Hypertension General Exam - General Exam Comments Initial Comments: GENERAL: Patient is well-developed and well-nourished. Patient is nontoxic and in no acute distress. HEAD: Atraumatic, normocephalic. EYES: Pupils equal round and reactive to light, extraocular movements intact, sclera anicteric, conjunctiva are normal. Eyelids were unremarkable. ENT: TMs normal, nares patent, oropharynx clear without exudates. Moist mucous membranes. NECK: Normal range of motion, supple without lymphadenopathy or JVD. LUNGS: Unlabored respirations. Breath sounds clear to auscultation bilaterally and equal. No wheezes rales or rhonchi. HEART: Regular rate and rhythm without murmurs, rubs or gallops. ABDOMEN: Soft, nontender, normoactive bowel sounds. No guarding, no rebound. No masses appreciated. : Deferred MUSCULOSKELETAL: Patient has pain with palpation of the lateral malleolus of the right ankle, she is unwilling to do range of motion secondary to pain. There is no significant swelling or bruising of the right ankle. She is neurovascular intact. No clubbing or cyanosis. NEUROLOGICAL: Patient is alert and oriented x 3. Motor and sensory are also intact. Normal speech. PSYCH: Normal mood, normal affect. SKIN: Warm, Dry, normal turgor, no rashes or lesions noted. Limitations: no limitations Course Vital Signs 12/24/19 08:38 Temperature 98.4 F Pulse Rate 94 Respiratory 18 Rate Blood Pressure 157/108 O2 Sat by Pulse 99 Oximetry Medical Decision Making - Medical Decision Making Patient is a 29-year-old female here for right ankle injury after a fall. She denies any other injuries from the fall. She recently got a cast off her right ankle due to a fibular fracture the beginning of November. X-rays show no acute fracture dislocation, stable cortical thickening of the distal fibula. Patient was placed in an air cast, recommended ice, elevation, ibuprofen for discomfort. Patient is agreement with this plan of care. She is stable for discharge. If symptoms persist after 1-2 weeks, follow up with orthopedics. Disposition Clinical Impression: Right ankle sprain Disposition: HOME SELF-CARE Condition: Stable Instructions (If sedation given, give patient instructions): Ankle Sprain (ED) Additional Instructions: Please return to the Emergency Department if symptoms worsen or any other concerns. Wear ankle brace for support. May apply ice, elevation, ibuprofen for discomfort. If symptoms persist after 1-2 weeks, follow up with orthopedics as discussed. Is patient prescribed a controlled substance at d/c from ED?: No Referrals: Moises Brito MD [Primary Care Provider] - 1-2 days
--- NOTE | 2019-12-24 09:17 | XR ---
EXAMINATION TYPE: XR ankle complete RT DATE OF EXAM: 12/24/2019 COMPARISON: 10/09/2019 HISTORY: Pain FINDINGS: Three views of the ankle demonstrate the ankle mortise to be intact and symmetric. The joint spaces are preserved. The osseous structures are intact. Well-corticated density adjacent to the lateral m alleolus also noted in the prior exam compatible with remote trauma. Stable chronic cortical thickeni ng of the distal fibula. IMPRESSION: 1. No definite acute fracture or dislocation, if symptoms persist follow-up study in 7 to 10 days wou ld be suggested.
== END 2019-12-24 09:31 | disposition home or self-care (01) ==
LOC: EC 08:35
DX: S93.401A Sprain of unspecified ligament of right ankle, initial encounter (principal); Z88.5 Allergy status to narcotic agent; Z91.040 Latex allergy status; Z91.048 Other nonmedicinal substance allergy status; W10.9XXA Fall (on) (from) unspecified stairs and steps, initial encounter; Y93.89 Activity, other specified; Y92.009 Unspecified place in unspecified non-institutional (private) residence as the place of occurrence of the external cause
CPT/HCPCS: 73610; 99283; L4350

== ENCOUNTER 2020-02-08 11:48 | Emergency (ER) | payer OTHER ==
[2020-02-08 11:53] VITALS: BP 150/100; PULSE 88; TEMP 98.4
[2020-02-08] MEDS ORDERED: IBUPROFEN 600 MG TAB PO STA (12:18)
[2020-02-08] MEDS ORDERED: traMADol 50 MG TAB PO STA (12:18)
[2020-02-08 12:20] VITALS: RESP 18
--- NOTE | 2020-02-08 13:02 | XR ---
EXAMINATION TYPE: XR ankle complete RT DATE OF EXAM: 02/08/2020 CLINICAL HISTORY: Pain after fall TECHNIQUE: Frontal, lateral and oblique images of the right ankle are obtained. COMPARISON: 10/09/2019 right ankle radiograph FINDINGS: There is no acute fracture/dislocation evident in the right ankle. The ankle mortise appe ars within normal limits. There is new ankle joint effusion. IMPRESSION: 1. No acute fracture or dislocation in the right ankle. 2. Ankle joint effusion.
--- NOTE | 2020-02-08 13:09 | ED ---
Lower Extremity Injury HPI - General Chief Complaint: Extremity Injury, Lower Stated Complaint: ankle injury Time Seen by Provider: 02/08/20 12:05 Source: patient, RN notes reviewed Mode of arrival: ambulatory Limitations: no limitations - History of Present Illness Initial Comments: 29-year-old female presents emergency from chief complaint of right ankle injury. Patient states she rolled her ankle. She's had multiple injuries in the past. Patient denies any paresthesias. Patient's pain on the lateral portion no other complaints. - Related Data Previous Rx's Medication Instructions Recorded Ibuprofen [Motrin] 600 mg PO Q8HR PRN #20 tab 02/08/20 Allergies Allergy/AdvReac Type Severity Reaction Status Date / Time acetaminophen [From Lortab] Allergy Rash/Hives Verified 02/08/20 12:42 adhesive tape Allergy Rash/Hives Verified 02/08/20 12:42 codeine Allergy Rash/Hives Verified 02/08/20 12:42 hydrocodone [From Lortab] Allergy Rash/Hives Verified 02/08/20 12:42 latex Allergy Rash/Hives Verified 02/08/20 12:42 Review of Systems ROS Statement: Those systems with pertinent positive or pertinent negative responses have been documented in the HPI. ROS Other: All systems not noted in ROS Statement are negative. Past Medical History Past Medical History: No Reported History Additional Past Medical History / Comment(s): ON ANTIBIOTICS FOR RECENT SINUS INFECTION DR. KAPOOR AWARE History of Any Multi-Drug Resistant Organisms: None Reported Past Surgical History: Cholecystectomy, Tubal Ligation Past Anesthesia/Blood Transfusion Reactions: No Reported Reaction Past Psychological History: No Psychological Hx Reported Smoking Status: Never smoker Past Alcohol Use History: None Reported Past Drug Use History: None Reported - Past Family History Father Family Medical History: Cancer, Deep Vein Thrombosis (DVT) Mother Family Medical History: Deep Vein Thrombosis (DVT), Hypertension General Exam Limitations: no limitations General appearance: alert, in no apparent distress Head exam: Present: atraumatic, normocephalic, normal inspection Respiratory exam: Present: normal lung sounds bilaterally. Absent: respiratory distress, wheezes, rales, rhonchi, stridor Cardiovascular Exam: Present: regular rate, normal rhythm, normal heart sounds. Absent: systolic murmur, diastolic murmur, rubs, gallop, clicks Extremities exam: Present: other (Right ankle lateral malleoli region there is swelling, slight ecchymosis tenderness with palpation neurovascular intact no foot tenderness. No proximal tib-fib tenderness) Course Vital Signs 02/08/20 02/08/20 11:49 12:19 Temperature 98.4 F Pulse Rate 88 Respiratory 16 18 Rate Blood Pressure 150/100 O2 Sat by Pulse 99 Oximetry Medical Decision Making - Medical Decision Making Patient has right ankle sprain. X-ray reviewed no acute fracture. Disposition Clinical Impression: Right ankle sprain Disposition: HOME SELF-CARE Condition: Stable Instructions (If sedation given, give patient instructions): Ankle Sprain (ED) Additional Instructions: Please return to the Emergency Department if symptoms worsen or any other concerns. Prescriptions: Ibuprofen [Motrin] 600 mg PO Q8HR PRN #20 tab PRN Reason: Pain Is patient prescribed a controlled substance at d/c from ED?: No Referrals: Moises Brito MD [Primary Care Provider] - 1-2 days Tomy Hazel DO [Medical Doctor] - 1-2 days Time of Disposition: 13:08
== END 2020-02-08 13:20 | disposition home or self-care (01) ==
LOC: EC 11:48
DX: S93.401A Sprain of unspecified ligament of right ankle, initial encounter (principal); Z88.5 Allergy status to narcotic agent; Z88.6 Allergy status to analgesic agent; Z91.040 Latex allergy status; Z91.048 Other nonmedicinal substance allergy status; X50.1XXA Overexertion from prolonged static or awkward postures, initial encounter
CPT/HCPCS: 99283

== ENCOUNTER 2020-08-19 15:31 | Emergency (ER) | payer OTHER ==
[2020-08-19 15:58] VITALS: TEMP 98.5
[2020-08-19 16:34] LABS: Appearance,Urine Cloudy (Clear); Bacteria,Urine Rare /hpf; Bilirubin,Urine Negative (Negative); Blood,Urine Trace (Negative); Color,Urine Yellow; Glucose,Urine (UA) Negative (Negative); Ketones,Urine Negative (Negative); Leukocyte Esterase,Urine Negative (Negative); Mucus,Urine Many /hpf; Nitrite,Urine Negative (Negative); Protein,Urine 1+ (Negative); RBC,Urine 5 /hpf (0-5); Squamous Epithelial Cell,Urine 15 /hpf (0-4); WBC,Urine 1 /hpf (0-5)
[2020-08-19] MEDS ORDERED: SODIUM CHLORIDE 0.9% 1,000 ML IV STA (16:54)
[2020-08-19] MEDS ORDERED: ONDANSETRON 4 MG/2 ML VIAL IVP STA (16:54)
[2020-08-19] MEDS ORDERED: KETOROLAC 15 MG/ML 1 ML VIAL IVP STA (16:54)
[2020-08-19] MEDS ORDERED: FAMOTIDINE 20 MG/2 ML VIAL IV STA (16:54)
--- NOTE | 2020-08-19 16:59 | ED ---
Abdominal Pain HPI - General Source: patient Mode of arrival: ambulatory Limitations: no limitations <Isael Landers - Last Filed: 08/19/20 19:21> <Jayda Ness - Last Filed: 08/31/20 17:43> - General Chief Complaint: Abdominal Pain Stated Complaint: R Flank Pain Time Seen by Provider: 08/19/20 16:36 - History of Present Illness Initial Comments: 29-year-old female presenting to the emergency department with a chief complaint of right flank pain. Patient reports this started approximately one week ago with gradual increase in severity. States the pain is located in the right side of the abdomen with occasional radiation to the right groin. She reports nausea multiple lobes anomaly somebody vomiting. Reports the pain is exacerbated with ambulation, weightbearing and twisting over torso. He has surgical history of cholecystectomy and tubal ligation. Denies any chest pain shortness of breath. Denies hematuria, hematochezia or melena. Denies any vaginal symptoms. (Isael Landers) - Related Data Previous Rx's Medication Instructions Recorded Ibuprofen [Motrin] 600 mg PO Q8HR PRN #20 tab 02/08/20 Naproxen [Naprosyn] 500 mg PO Q12HR #30 tab 08/19/20 Allergies Allergy/AdvReac Type Severity Reaction Status Date / Time acetaminophen [From Lortab] Allergy Rash/Hives Verified 08/19/20 15:56 adhesive tape Allergy Rash/Hives Verified 08/19/20 15:56 codeine Allergy Rash/Hives Verified 08/19/20 15:56 hydrocodone [From Lortab] Allergy Rash/Hives Verified 08/19/20 15:56 latex Allergy Rash/Hives Verified 08/19/20 15:56 Review of Systems ROS Other: All systems not noted in ROS Statement are negative. <Isael Landers - Last Filed: 08/19/20 19:21> ROS Other: All systems not noted in ROS Statement are negative. <Jayda Ness - Last Filed: 08/31/20 17:43> ROS Statement: Those systems with pertinent positive or pertinent negative responses have been documented in the HPI. Past Medical History Past Medical History: No Reported History Additional Past Medical History / Comment(s): ON ANTIBIOTICS FOR RECENT SINUS INFECTION DR. KAPOOR AWARE History of Any Multi-Drug Resistant Organisms: None Reported Past Surgical History: Cholecystectomy, Tubal Ligation Past Anesthesia/Blood Transfusion Reactions: No Reported Reaction Past Psychological History: No Psychological Hx Reported Smoking Status: Never smoker Past Alcohol Use History: None Reported Past Drug Use History: None Reported - Past Family History Father Family Medical History: Cancer, Deep Vein Thrombosis (DVT) Mother Family Medical History: Deep Vein Thrombosis (DVT), Hypertension <Isael Landers Last Filed: 08/19/20 19:21> General Exam Limitations: no limitations General appearance: alert, in no apparent distress, obese Head exam: Present: atraumatic, normocephalic, normal inspection Eye exam: Present: normal appearance, PERRL, EOMI Pupils: Present: normal accommodation ENT exam: Present: normal exam, normal oropharynx, mucous membranes moist, TM's normal bilaterally, normal external ear exam Neck exam: Present: normal inspection, full ROM. Absent: tenderness Respiratory exam: Present: normal lung sounds bilaterally. Absent: respiratory distress, wheezes, rales, rhonchi, stridor, chest wall tenderness, accessory muscle use Cardiovascular Exam: Present: regular rate, normal rhythm, normal heart sounds. Absent: systolic murmur GI/Abdominal exam: Present: soft, tenderness (Positive McBurney point tenderness. Positive obturator and psoas.). Absent: distended, guarding, rebound, rigid Extremities exam: Present: normal inspection, full ROM, normal capillary refill. Absent: tenderness, pedal edema, joint swelling Back exam: Present: normal inspection, full ROM. Absent: tenderness, CVA ten derness (R), CVA tenderness (L) Neurological exam: Present: alert, oriented X3 Psychiatric exam: Present: normal affect, normal mood Skin exam: Present: warm, dry, intact, normal color <Isael Landers Last Filed: 08/19/20 19:21> Course Vital Signs 08/19/20 08/19/20 08/19/20 15:56 18:59 20:35 Temperature 98.5 F Pulse Rate 99 94 84 Respiratory 18 18 16 Rate Blood Pressure 141/97 134/89 140/86 O2 Sat by Pulse 100 98 100 Oximetry Medical Decision Making - Lab Data Result diagrams: 08/19/20 17:32 05/10/21 17:32 <Isael Landers - Last Filed: 08/19/20 19:21> - Lab Data Result diagrams: 08/19/20 17:32 08/19/20 17:32 <Jayda Ness - Last Filed: 08/31/20 17:43> - Medical Decision Making 29-year-old female presents to emergency department a chief complaint of abdominal pain nausea vomiting. Physical examination, right lower quadrant tenderness at McBurney point tenderness. Mild right CVA tenderness. CBC CMP unremarkable. UA shows trace amounts of hematuria. CT abdomen and pelvis reveals a normal appendix, however there appears to be a 2 cm right-sided ovarian cyst. No free fluid in the abdomen and pelvis. Patient was given analgesia, antiemetics and IV fluids. On reevaluation, patient reports no significant improvement in her pain. She was given Dilaudid. Ultrasound pending. At this time, patient care signed off to (Isael Landers) The patient was signed out to me. I did review her laboratory studies and CT imaging. Patient did have an ultrasound ordered which demonstrates an ovarian cyst on the right measuring 2 x 1.5 x 1.3 cm. Arterial and venous flow within both ovaries. This information is discussed with the patient. At this time the patient be discharged home and needs OB follow-up for repeat ultrasound in 2-3 months. Return to the emergency room for any new or worsening symptoms. Follow-up with her primary care doctor in 2 to 4 days. Patient is discharged in stable condition (Jyada Ness) - Lab Data Lab Results 08/19/20 08/19/20 08/19/20 Range/Units 16:20 16:20 17:32 WBC 9.4 (3.8-10.6) k/uL RBC 4.52 (3.80-5.40) m/uL Hgb 14.4 (11.4-16.0) gm/dL Hct 41.5 (34.0-46.0) % MCV 91.7 (80.0-100.0) fL MCH 31.8 (25.0-35.0) pg MCHC 34.6 (31.0-37.0) g/dL RDW 12.9 (11.5-15.5) % Plt Count 299 (150-450) k/uL MPV 7.1 Neutrophils % 61 % Lymphocytes % 32 % Monocytes % 5 % Eosinophils % 1 % Basophils % 0 % Neutrophils # 5.7 (1.3-7.7) k/uL Lymphocytes # 3.0 (1.0-4.8) k/uL Monocytes # 0.5 (0-1.0) k/uL Eosinophils # 0.1 (0-0.7) k/uL Basophils # 0.0 (0-0.2) k/uL Sodium (137-145) mmol/L Potassium (3.5-5.1) mmol/L Chloride (98-107) mmol/L Carbon Dioxide (22-30) mmol/L Anion Gap mmol/L BUN (7-17) mg/dL Creatinine (0.52-1.04) mg/dL Est GFR (CKD-EPI)AfAm (>60 ml/min/1.73 sqM) Est GFR (CKD-EPI)NonAf (>60 ml/min/1.73 sqM) Glucose (74-99) mg/dL Calcium (8.4-10.2) mg/dL Total Bilirubin (0.2-1.3) mg/dL AST (14-36) U/L ALT (4-34) U/L Alkaline Phosphatase (38-126) U/L Total Protein (6.3-8.2) g/dL Albumin (3.5-5.0) g/dL Lipase (23-300) U/L Urine Color Yellow Urine Appearance Cloudy H (Clear) Urine pH 6.0 (5.0-8.0) Ur Specific [place] 1.030 (1.001-1.035) Urine Protein 1+ H (Negative) Urine Glucose (UA) Negative (Negative) Urine Ketones Negative (Negative) Urine Blood Trace H (Negative) Urine Nitrite Negative (Negative) Urine Bilirubin Negative (Negative) Urine Urobilinogen 2.0 (<2.0) mg/dL Ur Leukocyte Esterase Negative (Negative) Urine RBC 5 (0-5) /hpf Urine WBC 1 (0-5) /hpf Ur Squamous Epith Cells 15 H (0-4) /hpf Urine Bacteria Rare H (None) /hpf Urine Mucus Many H (None) /hpf Urine HCG, Qual Not Detected (Not Detectd) 08/19/20 Range/Units 17:32 WBC (3.8-10.6) k/uL RBC (3.80-5.40) m/uL Hgb (11.4-16.0) gm/dL Hct (34.0-46.0) % MCV (80.0-100.0) fL MCH (25.0-35.0) pg MCHC (31.0-37.0) g/dL RDW (11.5-15.5) % Plt Count (150-450) k/uL MPV Neutrophils % % Lymphocytes % % Monocytes % % Eosinophils % % Basophils % % Neutrophils # (1.3-7.7) k/uL Lymphocytes # (1.0-4.8) k/uL Monocytes # (0-1.0) k/uL Eosinophils # (0-0.7) k/uL Basophils # (0-0.2) k/uL Sodium 139 (137-145) mmol/L Potassium 4.4 (3.5-5.1) mmol/L Chloride 105 (98-107) mmol/L Carbon Dioxide 26 (22-30) mmol/L Anion Gap 8 mmol/L BUN 7 (7-17) mg/dL Creatinine 0.68 (0.52-1.04) mg/dL Est GFR (CKD-EPI)AfAm >90 (>60 ml/min/1.73 sqM) Est GFR (CKD-EPI)NonAf >90 (>60 ml/min/1.73 sqM) Glucose 89 (74-99) mg/dL Calcium 9.6 (8.4-10.2) mg/dL Total Bilirubin 0.4 (0.2-1.3) mg/dL AST 20 (14-36) U/L ALT 16 (4-34) U/L Alkaline Phosphatase 89 (38-126) U/L Total Protein 7.3 (6.3-8.2) g/dL Albumin 4.5 (3.5-5.0) g/dL Lipase 110 (23-300) U/L Urine Color Urine Appearance (Clear) Urine pH (5.0-8.0) Ur Specific [place] (1.001-1.035) Urine Protein (Negative) Urine Glucose (UA) (Negative) Urine Ketones (Negative) Urine Blood (Negative) Urine Nitrite (Negative) Urine Bilirubin (Negative) Urine Urobilinogen (<2.0) mg/dL Ur Leukocyte Esterase (Negative) Urine RBC (0-5) /hpf Urine WBC (0-5) /hpf Ur Squamous Epith Cells (0-4) /hpf Urine Bacteria (None) /hpf Urine Mucus (None) /hpf Urine HCG, Qual (Not Detectd) Disposition <LeesaTomyo - Last Filed: 08/19/20 19:21> Is patient prescribed a controlled substance at d/c from ED?: No Time of Disposition: 20:15 <Jayda Ness - Last Filed: 08/31/20 17:43> Clinical Impression: Abdominal pain, Ovarian cyst Disposition: HOME SELF-CARE Condition: Stable Instructions (If sedation given, give patient instructions): Ovarian Cyst (ED) Additional Instructions: Please follow-up with your [facility]. You will need a repeat ultrasound in 2-3 months. Return to the emergency room for any new or worsening symptoms Prescriptions: Naproxen [Naprosyn] 500 mg PO Q12HR #30 tab Referrals: Moises Brito MD [Primary Care Provider] - 1-2 days
[2020-08-19 17:45] LABS: Basophils % (A) 0 %; Eosinophils # (A) 0.1 k/uL (0-0.7); Eosinophils % (A) 1 %; HCT 41.5 % (34.0-46.0); HGB 14.4 gm/dL (11.4-16.0); Lymphocytes % (A) 32 %; MCH 31.8 pg (25.0-35.0); MCHC 34.6 g/dL (31.0-37.0); MCV 91.7 fL (80.0-100.0); Mean Platelet Volume 7.1; Monocytes # (A) 0.5 k/uL (0-1.0); Monocytes % (A) 5 %; Neutrophils # (A) 5.7 k/uL (1.3-7.7); Neutrophils % (A) 61 %; Platelet Count 299 k/uL (150-450); RBC 4.52 m/uL (3.80-5.40); RDW 12.9 % (11.5-15.5); WBC 9.4 k/uL (3.8-10.6)
[2020-08-19 17:52] LABS: ALT 16 U/L (4-34); AST 20 U/L (14-36); African American GFR (CKD) >90 (>60 ml/min/1.73 sqM); Albumin 4.5 g/dL (3.5-5.0); Alkaline Phosphatase 89 U/L (38-126); Anion Gap 8 mmol/L; Blood Urea Nitrogen 7 mg/dL (7-17); Calcium 9.6 mg/dL (8.4-10.2); Carbon Dioxide 26 mmol/L (22-30); Chloride 105 mmol/L (98-107); Glucose 89 mg/dL (74-99); Lipase 110 U/L (23-300); Non-African American GFR(CKD) >90 (>60 ml/min/1.73 sqM); Potassium 4.4 mmol/L (3.5-5.1); Sodium 139 mmol/L (137-145); Total Bilirubin 0.4 mg/dL (0.2-1.3); Total Protein 7.3 g/dL (6.3-8.2)
--- NOTE | 2020-08-19 18:11 | CT ---
EXAMINATION TYPE: CT abdomen pelvis w con DATE OF EXAM: 08/19/2020 COMPARISON: 09/03/2018 HISTORY: RLQ pain, abdominal pain. Positive McB. Hx celeste CT DLP: 1307.3 mGycm Automated exposure control for dose reduction was used. CONTRAST: Performed with IV Contrast, patient injected with 100 mL of Isovue 300. Images obtained from the diaphragm to the floor the pelvis with IV contrast. The lung bases are clear. There is no pleural effusion. Heart size is normal. There is no pericardial effusion. Liver spleen stomach pancreas appear intact. Bile ducts are not dilated. There are clips from cholecy stectomy. There is no adrenal mass. Kidneys show satisfactory contrast opacification. There is no hydronephrosi s. The ureters are not dilated. Delayed images show normal renal excretion. There is no retroperitone al adenopathy. Appendix is posterior and appears normal. Bladder distends smoothly. There is no ingui nal hernia. Uterus is anteverted. There is 2 cm cyst on the right ovary. There is no free fluid in th e pelvis. Lumbar vertebra have normal alignment. There is no compression fracture. Posterior elements are intac t. Bony pelvis is intact. The hip joints are intact. I see no bony destructive process. There is no mesenteric edema. There is no ascites or free air. The re is no evidence of a bowel obstruction. I see no intestinal wall thickening. There is 1.5 cm umbili edvin hernia that contains fat. IMPRESSION: Normal appendix. There is small right ovarian cyst which appears new compared to old exam.
[2020-08-19] MEDS ORDERED: HYDROmorphone 1 MG/ML 1 ML SYRINGE IVP STA (18:15)
[2020-08-19] MEDS ORDERED: diphenhydrAMINE 50 MG/ML 1 ML VIAL IVP STA (18:16)
--- NOTE | 2020-08-19 19:39 | US ---
EXAMINATION TYPE: US transvaginal DATE OF EXAM: 08/19/2020 COMPARISON: CT, US CLINICAL HISTORY: r/o torsion, right groni tendenress. R/O torsion. Hx right groin tenderness x 1 wee k. Hx tubal ligation. . TECHNIQUE: Transvaginal (TV). Date of LMP: 07/25/2020 EXAM MEASUREMENTS: Uterus: 9.1 x 5.2 x 4.4 cm Endometrial Stripe: 0.45 cm Right Ovary: 3.8 x 3.1 x 2.6 cm Left Ovary: 3.3 x 2.0 x 1.9 cm 1. Uterus: Appears very heterogeneous. Anteverted Hyperechoic, appearance of cluster of calcificat ions seen: 0.6 x 0.7 x 0.2 cm. 2. Endometrium: Appears wnl. 3. Right Ovary: Measures upper limits of normal versus slightly enlarged. Anechoic area seen: 2.0 x 1.5 x 1.3 cm. 4. Left Ovary: Anechoic area seen: 1.0 x 0.9 x 0.6 cm. Spectral, color and waveform doppler imaging shows arterial and venous flow within the ovaries. 5. Bilateral Adnexa: Appear wnl. 6. Posterior cul-de-sac: Appears wnl. IMPRESSION: Bilateral simple ovarian cysts. No solid adnexal mass. No evidence of ovarian torsion. Normal endomet rium.
[2020-08-19] MEDS ORDERED: ONDANSETRON 4 MG ODT STARTER PACK 2 TAB BTL PO STA (20:31)
[2020-08-19 20:36] VITALS: BP 140/86; PULSE 84; RESP 16
== END 2020-08-19 20:36 | disposition home or self-care (01) ==
LOC: EC 15:31
DX: N83.201 Unspecified ovarian cyst, right side (principal); Z90.49 Acquired absence of other specified parts of digestive tract
CPT/HCPCS: 36415; 80053; 83690; 85025; 81001; 81025; 93975; 76830; 74177; 99284; 96374; 96375 ×4; 96361 ×2; J1200; J2405; J1170; J1885; S0119; Q9967

== ENCOUNTER → 2020-10-18 | Outpatient (CLI) | payer OTHER ==
[2020-10-19 04:22] LABS: DHEA Sulfate 215.7 ug/dL (26.0-430.0)
[2020-10-19 04:23] LABS: Follicle Stimulating Hormone 6.6 mIU/mL; Prolactin 8.4 ng/mL (2.8-29.2)
[2020-10-19 04:51] LABS: Progesterone 0.5 ng/mL
--- NOTE | 2020-10-21 09:20 | USB ---
Reason for exam: clinical finding. History: Family history of breast cancer in maternal grandmother at age 30 and breast cancer in mother at age 53. Took hormonal contraceptives for 4 years beginning at age 16. Indicated problem(s): pain in both breasts. Non-bloody discharge in the left breast. Physical Findings: Nurse did not find any significant physical abnormalities on exam. US Breast BILAT Right complete breast ultrasound includes all four quadrants, the retroareolar region and axilla. Finding demonstrates no cystic or solid lesion seen. Left complete breast ultrasound includes all four quadrants, the retroareolar region and axilla. Finding demonstrates no cystic or solid lesion seen. No sonographic findings. Clinical follow up for breast pain. These results were verbally communicated with the patient and result sheet given to the patient on 10/18/20. ASSESSMENT: Benign, BI-RAD 2 RECOMMENDATION: Routine screening mammogram of both breasts at age 39. Manage patient on a clinical basis.
== END | disposition home or self-care (01) ==
LOC: RADUSWWP 14:45
PROVIDERS: ATTEND Obstetrics & Gynecology
DX: N64.4 Mastodynia (principal); N64.52 Nipple discharge; Z80.3 Family history of malignant neoplasm of breast
CPT/HCPCS: 82627; 83001; 84144; 84146; 84403; 84436; 84443; 84479

== ENCOUNTER 2020-12-18 11:50 | Emergency (ER) | payer OTHER ==
[2020-12-18 11:55] VITALS: RESP 18
[2020-12-18] MEDS ORDERED: diphenhydrAMINE 50 MG/ML 1 ML VIAL IVP STA (12:22)
[2020-12-18] MEDS ORDERED: SODIUM CHLORIDE 0.9% 1,000 ML IV STA (12:22)
[2020-12-18] MEDS ORDERED: KETOROLAC 15 MG/ML 1 ML VIAL IVP STA (12:22)
[2020-12-18] MEDS ORDERED: ONDANSETRON 4 MG/2 ML VIAL IVP STA (12:22)
[2020-12-18 13:02] LABS: Basophils % (A) 1 %; Eosinophils # (A) 0.1 k/uL (0-0.7); Eosinophils % (A) 2 %; HCT 40.8 % (34.0-46.0); HGB 14.4 gm/dL (11.4-16.0); Lymphocytes # (A) 2.6 k/uL (1.0-4.8); Lymphocytes % (A) 34 %; MCH 32.7 pg (25.0-35.0); MCHC 35.2 g/dL (31.0-37.0); MCV 92.8 fL (80.0-100.0); Mean Platelet Volume 7.2; Monocytes # (A) 0.3 k/uL (0-1.0); Monocytes % (A) 4 %; Neutrophils # (A) 4.4 k/uL (1.3-7.7); Neutrophils % (A) 58 %; Platelet Count 288 k/uL (150-450); RBC 4.39 m/uL (3.80-5.40); RDW 12.8 % (11.5-15.5); WBC 7.6 k/uL (3.8-10.6)
[2020-12-18 13:15] LABS: ALT 31 U/L (4-34); AST 35 U/L (14-36); African American GFR (CKD) >90 (>60 ml/min/1.73 sqM); Albumin 4.5 g/dL (3.5-5.0); Anion Gap 10 mmol/L; Blood Urea Nitrogen 5 mg/dL (7-17); Calcium 9.6 mg/dL (8.4-10.2); Carbon Dioxide 25 mmol/L (22-30); Chloride 102 mmol/L (98-107); Glucose 95 mg/dL (74-99); Non-African American GFR(CKD) >90 (>60 ml/min/1.73 sqM); Potassium 4.8 mmol/L (3.5-5.1); Sodium 137 mmol/L (137-145); Total Bilirubin 0.7 mg/dL (0.2-1.3); Total Protein 7.4 g/dL (6.3-8.2)
[2020-12-18 13:16] LABS: Alkaline Phosphatase 75 U/L (38-126)
[2020-12-18] MEDS ORDERED: MORPHINE SULFATE 2 MG/ML SYRINGE IVP ONE (13:35)
[2020-12-18] MEDS ORDERED: MECLIZINE 12.5 MG TAB PO STA (13:36)
--- NOTE | 2020-12-18 13:54 | ED ---
Headache HPI - General Chief Complaint: Headache Stated Complaint: Headache Time Seen by Provider: 12/18/20 12:13 Mode of arrival: ambulatory Limitations: no limitations - History of Present Illness Initial Comments: Patient is a 30-year-old female presenting to the emergency Department with complaints of a headache and some intermittent lightheadedness and dizziness associated with it. She states she checked her blood pressure is well and it was elevated in the 170s. She has no history of hypertension, she does occasionally get headaches but feels like it's never this intense. She denies any falls or trauma. She denies taking any medications. She does admit to being light sensitive, some mild nausea but no vomiting, no diarrhea or no abdominal pain. She denies any chest pain or shortness of breath, no vision changes. She states she has not had a follow-up with her PCP and about 4 years. She has no further complaints. Upon arrival to the ER, her blood pressures 170/112, rest of vitals within normal limits. - Related Data Home Medications Medication Instructions Recorded Confirmed Fexofenadine HCl [Clare Allergy] 180 mg PO DAILY 12/18/20 12/18/20 Allergies Allergy/AdvReac Type Severity Reaction Status Date / Time adhesive tape Allergy Rash/Hives Verified 12/18/20 12:55 codeine Allergy Rash/Hives Verified 12/18/20 12:55 hydrocodone [From Lortab] Allergy Rash/Hives Verified 12/18/20 12:55 latex Allergy Rash/Hives Verified 12/18/20 12:55 Review of Systems ROS Statement: Those systems with pertinent positive or pertinent negative responses have been documented in the HPI. ROS Other: All systems not noted in ROS Statement are negative. Past Medical History Past Medical History: No Reported History Additional Past Medical History / Comment(s): ON ANTIBIOTICS FOR RECENT SINUS INFECTION DR. KAPOOR AWARE History of Any Multi-Drug Resistant Organisms: None Reported Past Surgical History: Cholecystectomy, Tubal Ligation Past Anesthesia/Blood Transfusion Reactions: No Reported Reaction Past Psychological History: No Psychological Hx Reported Smoking Status: Never smoker Past Alcohol Use History: None Reported Past Drug Use History: None Reported - Past Family History Father Family Medical History: Cancer, Deep Vein Thrombosis (DVT) Mother Family Medical History: Deep Vein Thrombosis (DVT), Hypertension General Exam - General Exam Comments Initial Comments: GENERAL: Patient is well-developed and well-nourished. Patient is nontoxic and in no acute distress. HEAD: Atraumatic, normocephalic. EYES: Pupils equal round and reactive to light, extraocular movements intact, sclera anicteric, conjunctiva are normal. Eyelids were unremarkable. Light sensitive. ENT: TMs normal, nares patent, oropharynx clear without exudates. Moist mucous membranes. NECK: Normal range of motion, supple without lymphadenopathy or JVD. LUNGS: Unlabored respirations. Breath sounds clear to auscultation bilaterally and equal. No wheezes rales or rhonchi. HEART: Regular rate and rhythm without murmurs, rubs or gallops. ABDOMEN: Soft, nontender, normoactive bowel sounds. No guarding, no rebound. No masses appreciated. : Deferred MUSCULOSKELETAL: Normal extremities with adequate strength and normal range of motion, no pitting or edema. No clubbing or cyanosis. NEUROLOGICAL: Patient is alert and oriented x 3. Motor and sensory are also intact. Cranial nerves II through XII grossly intact. Symmetrical smile. Normal speech, normal gait. PSYCH: Normal mood, normal affect. SKIN: Warm, Dry, normal turgor, no rashes or lesions noted. Limitations: no limitations Course Vital Signs 12/18/20 12/18/20 12/18/20 11:53 13:23 15:11 Temperature 97.7 F 97.9 F Pulse Rate 103 H 84 79 Respiratory 18 18 18 Rate Blood Pressure 170/112 148/89 144/88 O2 Sat by Pulse 97 98 98 Oximetry Medical Decision Making - Medical Decision Making Patient is a 30-year-old female here with a headache and elevated blood pressure started this morning. She is not on any medications, no history of hypertension however she has not followed up with her PCP in over 4 years. Her exam is within normal limits, no acute neuro deficits. I did check basic labs, which were all normal. Patient was given some fluids, migraine cocktail. The pressure was rechecked about an hour later, it did improve to 148/89. I discussed the patient is hard to know if her headache was caused by her blood pressure or for blood pressures elevated secondary to her severe headache. I recommended keeping a blood pressure log until follow-up with her primary care physician. She is agreeable to this. I also recommended Excedrin Extra Strength or any future headaches. Return parameters were discussed with her and she verbalized understanding. Case discussed with Dr. Kinney. - Lab Data Result diagrams: 12/18/20 12:44 12/18/20 12:44 Lab Results 12/18/20 12/18/20 Range/Units 12:44 12:44 WBC 7.6 (3.8-10.6) k/uL RBC 4.39 (3.80-5.40) m/uL Hgb 14.4 (11.4-16.0) gm/dL Hct 40.8 (34.0-46.0) % MCV 92.8 (80.0-100.0) fL MCH 32.7 (25.0-35.0) pg MCHC 35.2 (31.0-37.0) g/dL RDW 12.8 (11.5-15.5) % Plt Count 288 (150-450) k/uL MPV 7.2 Neutrophils % 58 % Lymphocytes % 34 % Monocytes % 4 % Eosinophils % 2 % Basophils % 1 % Neutrophils # 4.4 (1.3-7.7) k/uL Lymphocytes # 2.6 (1.0-4.8) k/uL Monocytes # 0.3 (0-1.0) k/uL Eosinophils # 0.1 (0-0.7) k/uL Basophils # 0.0 (0-0.2) k/uL Sodium 137 (137-145) mmol/L Potassium 4.8 (3.5-5.1) mmol/L Chloride 102 (98-107) mmol/L Carbon Dioxide 25 (22-30) mmol/L Anion Gap 10 mmol/L BUN 5 L (7-17) mg/dL Creatinine 0.71 (0.52-1.04) mg/dL Est GFR (CKD-EPI)AfAm >90 (>60 ml/min/1.73 sqM) Est GFR (CKD-EPI)NonAf >90 (>60 ml/min/1.73 sqM) Glucose 95 (74-99) mg/dL Calcium 9.6 (8.4-10.2) mg/dL Total Bilirubin 0.7 (0.2-1.3) mg/dL AST 35 (14-36) U/L ALT 31 (4-34) U/L Alkaline Phosphatase 75 (38-126) U/L Total Protein 7.4 (6.3-8.2) g/dL Albumin 4.5 (3.5-5.0) g/dL Disposition Clinical Impression: Headache, Elevated BP without diagnosis of hypertension Disposition: HOME SELF-CARE Condition: Stable Instructions (If sedation given, give patient instructions): Acute Headache (ED) Additional Instructions: Please return to the Emergency Department if symptoms worsen or any other concerns. Please follow-up with your PCP regarding elevated blood pressure today. Recommend Excedrin Extra Strength for any future headaches. Continue to increase your fluid intake. Is patient prescribed a controlled substance at d/c from ED?: No Referrals: Moises Brito MD [Primary Care Provider] - 1-2 days Time of Disposition: 14:47
[2020-12-18 15:12] VITALS: BP 144/88; PULSE 79; TEMP 97.9
== END 2020-12-18 15:12 | disposition home or self-care (01) ==
LOC: EC 11:50
DX: R51.9 Headache, unspecified (principal); R03.0 Elevated blood-pressure reading, without diagnosis of hypertension; Z88.5 Allergy status to narcotic agent; Z91.040 Latex allergy status; Z90.49 Acquired absence of other specified parts of digestive tract; Z98.51 Tubal ligation status
CPT/HCPCS: 99284; 96374; 96375 ×3; 96361; 36415; 80053; 85025; J1200; J2405; J2270; J1885

== ENCOUNTER 2021-01-09 10:53 | Emergency (ER) | payer OTHER ==
[2021-01-09 11:04] VITALS: TEMP 98.2
[2021-01-09] MEDS ORDERED: SODIUM CHLORIDE 0.9% 1,000 ML IV STA (11:17)
[2021-01-09] MEDS ORDERED: ONDANSETRON 4 MG/2 ML VIAL IVP STA (11:17)
[2021-01-09] MEDS ORDERED: HYDROmorphone 1 MG/ML 1 ML SYRINGE IVP STA (11:18)
[2021-01-09 11:56] LABS: Basophils # (A) 0.1 k/uL (0-0.2); Basophils % (A) 1 %; Eosinophils # (A) 0.1 k/uL (0-0.7); Eosinophils % (A) 1 %; HCT 41.3 % (34.0-46.0); HGB 14.6 gm/dL (11.4-16.0); Lymphocytes # (A) 2.4 k/uL (1.0-4.8); Lymphocytes % (A) 34 %; MCH 32.7 pg (25.0-35.0); MCHC 35.3 g/dL (31.0-37.0); MCV 92.7 fL (80.0-100.0); Mean Platelet Volume 7.4; Monocytes # (A) 0.2 k/uL (0-1.0); Monocytes % (A) 3 %; Neutrophils # (A) 4.1 k/uL (1.3-7.7); Neutrophils % (A) 60 %; Platelet Count 315 k/uL (150-450); RBC 4.45 m/uL (3.80-5.40); RDW 13.3 % (11.5-15.5); WBC 6.9 k/uL (3.8-10.6)
--- NOTE | 2021-01-09 12:39 | CT ---
EXAMINATION TYPE: CT abdomen pelvis w con DATE OF EXAM: 01/09/2021 COMPARISON: 08/19/2020 HISTORY: Right sided Abdominal and flank pain. CT DLP: 1230.6 mGycm CONTRAST: CT scan of the abdomen and pelvis is performed without Oral Contrast and with IV Contrast, patient in jected with 100 mL of Isovue 300. FINDINGS: LUNG BASES-: No visible nodule. No infiltrate. LIVER/GB: The gallbladder is surgically absent. No space occupying hepatic lesion. Biliary tree is of normal caliber. Hepatic steatosis. PANCREAS: No inflammation. No distinct mass. SPLEEN: No splenic enlargement. No lesion seen. ADRENALS: No nodule. No thickening. KIDNEYS/BLADDER: No hydronephrosis. No nephrolithiasis. Angiomyolipoma upper pole left kidney.. Ur inary bladder grossly unremarkable. BOWEL: Normal appendix. Normal bowel caliber. Fluid-filled small bowel mild wall thickening of the j ejunum may reflect enteritis. GENITAL ORGANS: No gross abnormality. LYMPH NODES: No greater than 1cm abdominal or pelvic lymph nodes are appreciated. AORTA: No significant abnormality. OSSEOUS STRUCTURES: No significant abnormality is seen. OTHER: No significant additional abnormality is seen. IMPRESSION: 1. Correlate for small bowel enteritis.
[2021-01-09 13:46] LABS: ALT 26 U/L (4-34); AST 26 U/L (14-36); African American GFR (CKD) >90 (>60 ml/min/1.73 sqM); Albumin 4.9 g/dL (3.5-5.0); Alkaline Phosphatase 95 U/L (38-126); Amylase 53 U/L (30-110); Anion Gap 11 mmol/L; Blood Urea Nitrogen 5 mg/dL (7-17); Calcium 9.5 mg/dL (8.4-10.2); Carbon Dioxide 22 mmol/L (22-30); Chloride 105 mmol/L (98-107); Glucose 100 mg/dL (74-99); Lipase 101 U/L (23-300); Non-African American GFR(CKD) >90 (>60 ml/min/1.73 sqM); Potassium 4.5 mmol/L (3.5-5.1); Sodium 138 mmol/L (137-145); Total Bilirubin 0.6 mg/dL (0.2-1.3)
[2021-01-09 14:26] LABS: Appearance,Urine Clear (Clear); Bilirubin,Urine Negative (Negative); Blood,Urine Large (Negative); Color,Urine Light Red; Glucose,Urine (UA) Negative (Negative); Ketones,Urine Trace (Negative); Leukocyte Esterase,Urine Trace (Negative); Nitrite,Urine Negative (Negative); Protein,Urine Trace (Negative); RBC,Urine >182 /hpf (0-5); Squamous Epithelial Cell,Urine 2 /hpf (0-4); Urobilinogen,Urine <2.0 mg/dL (<2.0); WBC,Urine 22 /hpf (0-5)
[2021-01-09] MEDS ORDERED: KETOROLAC 15 MG/ML 1 ML VIAL IVP STA (14:38)
[2021-01-09 14:55] LABS: Specific Gravity,Urine 1.049 (1.001-1.035)
[2021-01-09] MEDS ORDERED: cefTRIAXone IN SWFI 1,000 MG/10 ML SYRINGE IVP STA (15:04)
--- NOTE | 2021-01-09 15:15 | ED ---
Abdominal Pain HPI - General Source: patient, RN notes reviewed Mode of arrival: ambulatory Limitations: no limitations <Ady Metcalf - Last Filed: 01/09/21 15:04> <Jayda Ness - Last Filed: 01/13/21 00:40> - General Chief Complaint: Abdominal Pain Stated Complaint: Rt Side Pain/Migraine/High BP Time Seen by Provider: 01/09/21 11:15 - History of Present Illness Initial Comments: A she is a 30-year-old female presents emergency, complaining of right-sided flank pain with radiation to her abdomen. She notes this all happened around 2:00 this morning is been constant with no relief. She notes that she does not have a history of kidney stones. She notes that she still does have her appendix. She'll the pain is approximately 10 out of 10 with no relief. She denied any alleviating or aggravating factors. She is otherwise a well- appearing 30-year-old female patient she denied any chest pain short of breath headache vomiting diarrhea constipation fever fatigue chills. (Ady Metcalf) - Related Data Previous Rx's Medication Instructions Recorded Cephalexin [Keflex] 500 mg PO Q6HR #40 cap 01/09/21 Ketorolac [Toradol] 10 mg PO Q8HR #15 tab 01/09/21 Allergies Allergy/AdvReac Type Severity Reaction Status Date / Time adhesive tape Allergy Rash/Hives Verified 01/09/21 12:45 codeine Allergy Rash/Hives Verified 01/09/21 12:45 hydrochlorothiazide Allergy Rash/Hives Verified 01/09/21 12:45 hydrocodone [From Lortab] Allergy Rash/Hives Verified 01/09/21 12:45 latex Allergy Rash/Hives Verified 01/09/21 12:45 propranolol [From Inderal LA] Allergy Rash/Hives Verified 01/09/21 12:45 Review of Systems ROS Other: All systems not noted in ROS Statement are negative. <Ady Metcalf - Last Filed: 01/09/21 15:04> ROS Other: All systems not noted in ROS Statement are negative. <Jayda Ness - Last Filed: 01/13/21 00:40> ROS Statement: Those systems with pertinent positive or pertinent negative responses have been documented in the HPI. Past Medical History Past Medical History: No Reported History Additional Past Medical History / Comment(s): ON ANTIBIOTICS FOR RECENT SINUS INFECTION DR. KAPOOR AWARE History of Any Multi-Drug Resistant Organisms: None Reported Past Surgical History: Cholecystectomy, Tubal Ligation Past Anesthesia/Blood Transfusion Reactions: No Reported Reaction Past Psychological History: No Psychological Hx Reported Smoking Status: Never smoker Past Alcohol Use History: None Reported Past Drug Use History: None Reported - Past Family History Father Family Medical History: Cancer, Deep Vein Thrombosis (DVT) Mother Family Medical History: Deep Vein Thrombosis (DVT), Hypertension <Ady Metcalf - Last Filed: 01/09/21 15:04> General Exam Limitations: no limitations General appearance: alert, in no apparent distress, obese Head exam: Present: atraumatic, normocephalic, normal inspection Eye exam: Present: normal appearance, PERRL, EOMI. Absent: scleral icterus, conjunctival injection, periorbital swelling ENT exam: Present: normal exam, mucous membranes moist Neck exam: Present: normal inspection Respiratory exam: Present: normal lung sounds bilaterally. Absent: respiratory distress, wheezes, rales, rhonchi, stridor Cardiovascular Exam: Present: regular rate, normal rhythm, normal heart sounds. Absent: systolic murmur, diastolic murmur, rubs, gallop, clicks GI/Abdominal exam: Present: soft, tenderness (Otherwise throughout, mostly in the right calf.), normal bowel sounds. Absent: distended, guarding, rebound, rigid Extremities exam: Present: normal inspection, full ROM, normal capillary refill. Absent: tenderness, pedal edema, joint swelling, calf tenderness Back exam: Present: normal inspection, CVA tenderness (R) Neurological exam: Present: alert, oriented X3 Psychiatric exam: Present: normal affect, normal mood Skin exam: Present: warm, dry, intact, normal color. Absent: rash <Ady Metcalf - Last Filed: 01/09/21 15:04> Course Vital Signs 01/09/21 01/09/21 10:59 16:31 Temperature 98.2 F Pulse Rate 90 78 Respiratory 18 20 Rate Blood Pressure 152/100 136/85 O2 Sat by Pulse 99 98 Oximetry Medical Decision Making - Lab Data Result diagrams: 01/09/21 11:33 01/09/21 11:33 - Radiology Data Radiology results: report reviewed, image reviewed <Ady Metcalf - Last Filed: 01/09/21 15:04> - Lab Data Result diagrams: 01/09/21 11:33 01/09/21 11:33 <Jayda Ness - Last Filed: 01/13/21 00:40> - Medical Decision Making 30-year-old female complaining of right flank pain with abdominal pain on the right side. Labs, CT of the abdomen and pelvis, given Dilaudid, 4 mg of Zofran, 1 L normal saline ordered. Labs: CBC unremarkable, CMP unremarkable urinalysis shows large amount red blood cells and 22 white blood cells, 1 g Rocephin ordered for UTI. Computed tomography scan shows possible small bowel enteritis. 15 mg of Toradol ordered for continuing pain. Case discussed with Dr. Ness, patient discharge home on antibiotics with follow-up to primary care. (Ady Metcalf) I was available for consultation in the emergency department. The history and physical exam were done by the midlevel provider. I was consulted for this patients care. I reviewed the case with the midlevel provider and based on their presentation of the patient, I agree with the assessment, medical decision making and plan of care as documented. Chart was dictated using [employer] dictation software. Attempts were made to correct any dictation errors however some typographical errors may persist. Patient was seen during a national state of emergency due to the Covid-19 pandemic. (Jayda Ness) - Lab Data Lab Results 01/09/21 01/09/21 01/09/21 Range/Units 11:33 11:33 11:33 WBC 6.9 (3.8-10.6) k/uL RBC 4.45 (3.80-5.40) m/uL Hgb 14.6 (11.4-16.0) gm/dL Hct 41.3 (34.0-46.0) % MCV 92.7 (80.0-100.0) fL MCH 32.7 (25.0-35.0) pg MCHC 35.3 (31.0-37.0) g/dL RDW 13.3 (11.5-15.5) % Plt Count 315 (150-450) k/uL MPV 7.4 Neutrophils % 60 % Lymphocytes % 34 % Monocytes % 3 % Eosinophils % 1 % Basophils % 1 % Neutrophils # 4.1 (1.3-7.7) k/uL Lymphocytes # 2.4 (1.0-4.8) k/uL Monocytes # 0.2 (0-1.0) k/uL Eosinophils # 0.1 (0-0.7) k/uL Basophils # 0.1 (0-0.2) k/uL Sodium 138 (137-145) mmol/L Potassium 4.5 (3.5-5.1) mmol/L Chloride 105 (98-107) mmol/L Carbon Dioxide 22 (22-30) mmol/L Anion Gap 11 mmol/L BUN 5 L (7-17) mg/dL Creatinine 0.72 (0.52-1.04) mg/dL Est GFR (CKD-EPI)AfAm >90 (>60 ml/min/1.73 sqM) Est GFR (CKD-EPI)NonAf >90 (>60 ml/min/1.73 sqM) Glucose 100 H (74-99) mg/dL Plasma Lactic Acid Jaskaran 1.3 (0.7-2.0) mmol/L Calcium 9.5 (8.4-10.2) mg/dL Total Bilirubin 0.6 (0.2-1.3) mg/dL AST 26 (14-36) U/L ALT 26 (4-34) U/L Alkaline Phosphatase 95 (38-126) U/L Total Protein 8.0 (6.3-8.2) g/dL Albumin 4.9 (3.5-5.0) g/dL Amylase 53 (30-110) U/L Lipase 101 (23-300) U/L Urine Color Urine Appearance (Clear) Urine pH (5.0-8.0) Ur Specific [place] (1.001-1.035) Urine Protein (Negative) Urine Glucose (UA) (Negative) Urine Ketones (Negative) Urine Blood (Negative) Urine Nitrite (Negative) Urine Bilirubin (Negative) Urine Urobilinogen (<2.0) mg/dL Ur Leukocyte Esterase (Negative) Urine RBC (0-5) /hpf Urine WBC (0-5) /hpf Ur Squamous Epith Cells (0-4) /hpf 01/09/ Range/Units 14:08 WBC (3.8-10.6) k/uL RBC (3.80-5.40) m/uL Hgb (11.4-16.0) gm/dL Hct (34.0-46.0) % MCV (80.0-100.0) fL MCH (25.0-35.0) pg MCHC (31.0-37.0) g/dL RDW (11.5-15.5) % Plt Count (150-450) k/uL MPV Neutrophils % % Lymphocytes % % Monocytes % % Eosinophils % % Basophils % % Neutrophils # (1.3-7.7) k/uL Lymphocytes # (1.0-4.8) k/uL Monocytes # (0-1.0) k/uL Eosinophils # (0-0.7) k/uL Basophils # (0-0.2) k/uL Sodium (137-145) mmol/L Potassium (3.5-5.1) mmol/L Chloride (98-107) mmol/L Carbon Dioxide (22-30) mmol/L Anion Gap mmol/L BUN (7-17) mg/dL Creatinine (0.52-1.04) mg/dL Est GFR (CKD-EPI)AfAm (>60 ml/min/1.73 sqM) Est GFR (CKD-EPI)NonAf (>60 ml/min/1.73 sqM) Glucose (74-99) mg/dL Plasma Lactic Acid Jaskaran (0.7-2.0) mmol/L Calcium (8.4-10.2) mg/dL Total Bilirubin (0.2-1.3) mg/dL AST (14-36) U/L ALT (4-34) U/L Alkaline Phosphatase (38-126) U/L Total Protein (6.3-8.2) g/dL Albumin (3.5-5.0) g/dL Amylase (30-110) U/L Lipase (23-300) U/L Urine Color Light Red Urine Appearance Clear (Clear) Urine pH 6.0 (5.0-8.0) Ur Specific [place] 1.049 H (1.001-1.035) Urine Protein Trace H (Negative) Urine Glucose (UA) Negative (Negative) Urine Ketones Trace H (Negative) Urine Blood Large H (Negative) Urine Nitrite Negative (Negative) Urine Bilirubin Negative (Negative) Urine Urobilinogen <2.0 (<2.0) mg/dL Ur Leukocyte Esterase Trace H (Negative) Urine RBC >182 H (0-5) /hpf Urine WBC 22 H (0-5) /hpf Ur Squamous Epith Cells 2 (0-4) /hpf - Radiology Data CT abdomen and pelvis: Correlate for small bowel enteritis., Normal appendix, normal bowel caliber. Fluid filled small bowel mild wall thickening of the digital may reflect enteritis. (Ady Metcalf) Disposition Is patient prescribed a controlled substance at d/c from ED?: No Time of Disposition: 15:15 <Ady Metcalf - Last Filed: 01/09/21 15:04> <Jayda Ness - Last Filed: 01/13/21 00:40> Clinical Impression: Urinary tract infection, Abdominal pain, Right flank pain Disposition: HOME SELF-CARE Condition: Stable Instructions (If sedation given, give patient instructions): Abdominal Pain (ED) Additional Instructions: Please return to the Emergency Department if symptoms worsen or any other concerns. Follow-up with primary care 1-2 days. Take antibiotics as prescribed until complete. Increase oral fluids. Prescriptions: Cephalexin [Keflex] 500 mg PO Q6HR #40 cap Ketorolac [Toradol] 10 mg PO Q8HR #15 tab Referrals: Hong Buenrostro MD [Primary Care Provider] - 1-2 days
[2021-01-09 16:32] VITALS: BP 136/85; PULSE 78; RESP 20
== END 2021-01-09 16:32 | disposition home or self-care (01) ==
LOC: EC 10:53
DX: N39.0 Urinary tract infection, site not specified (principal); Z87.442 Personal history of urinary calculi; Z88.5 Allergy status to narcotic agent; Z91.040 Latex allergy status; Z90.49 Acquired absence of other specified parts of digestive tract; Z98.51 Tubal ligation status
CPT/HCPCS: 99284; 96374; 96375 ×3; 96361; 36415; 80053; 82150; 83605; 83690; 85025; 81001; 87086; 74177; J2405; J0696; J1170; J1885; Q9967

== ENCOUNTER → 2021-02-21 | Outpatient (CLI) | payer OTHER ==
--- NOTE | 2021-02-21 13:59 | US ---
EXAMINATION TYPE: US pelvic complete DATE OF EXAM: 02/21/2021 COMPARISON: US 2020 CLINICAL HISTORY: R10.2 PELVIC PAIN. Pelvic pain x 2 months, 4, para 4, history of tubal liga tion TECHNIQUE: . Transabdominal sonographic images of the pelvis were acquired. Date of LMP: 01/31/2021 EXAM MEASUREMENTS: Uterus: 9.5 x 3.7 x 4.8 cm Endometrial Stripe: 0.6 cm Right Ovary: 3.2 x 2.2 x 2.8 cm Left Ovary: 2.7 x 2.1 x 1.8 cm 1. Uterus: anteverted 2. Endometrium: wnl 3. Right Ovary: multiple follicles with largest measuring 1.6cm 4. Left Ovary: wnl 5. Bilateral Adnexa: wnl 6. Posterior cul-de-sac: wnl IMPRESSION: No definite sonographic abnormality in the pelvis.
== END | disposition home or self-care (01) ==
LOC: RADUSWWP 10:33
PROVIDERS: ATTEND Obstetrics & Gynecology
DX: R10.2 Pelvic and perineal pain (principal)
CPT/HCPCS: 76856

== ENCOUNTER 2021-11-02 12:25 | Emergency (ER) | payer OTHER ==
[2021-11-02 12:37] VITALS: TEMP 98.1
[2021-11-02] MEDS ORDERED: SODIUM CHLORIDE 0.9% 2,000 ML IV STA (12:52)
[2021-11-02] MEDS ORDERED: ONDANSETRON 4 MG/2 ML VIAL IVP STA (12:52)
[2021-11-02] MEDS ORDERED: MORPHINE SULFATE 4 MG/ML SYRINGE IVP STA (13:12)
[2021-11-02 13:15] LABS: Basophils # (A) 0.1 k/uL (0-0.2); Basophils % (A) 1 %; Eosinophils # (A) 0.2 k/uL (0-0.7); Eosinophils % (A) 1 %; HGB 14.2 gm/dL (11.4-16.0); Lymphocytes # (A) 3.1 k/uL (1.0-4.8); Lymphocytes % (A) 28 %; MCH 30.7 pg (25.0-35.0); Mean Platelet Volume 7.3; Monocytes # (A) 0.4 k/uL (0-1.0); Monocytes % (A) 3 %; Neutrophils # (A) 7.2 k/uL (1.3-7.7); Neutrophils % (A) 65 %; Platelet Count 369 k/uL (150-450); RBC 4.62 m/uL (3.80-5.40); RDW 13.1 % (11.5-15.5); WBC 11.1 k/uL (3.8-10.6)
--- NOTE | 2021-11-02 13:24 | ED ---
Abdominal Pain HPI - General Chief Complaint: Abdominal Pain Stated Complaint: Abd pain Time Seen by Provider: 11/02/21 12:38 Source: patient Mode of arrival: ambulatory Limitations: no limitations - History of Present Illness Initial Comments: Patient is a 31 -year-old female with past medical history significant for kidney stone, kidney infection, right ovarian cyst, cholecystectomy, and tubal ligation who presents to the emergency department with a chief complaint of right-sided pain. Patient states the pain started last night in her right lower back. There is radiation to the right side and right lower abdomen. She states the pain is most significant in the right side. She denies back injury. Denies numbness and tingling in the groin. Denies loss of bowel and bladder function. Patient states she has taken Tylenol with no relief. Reports nausea without vomiting. Denies fever and chills. Denies burning with urination,and increased urinary frequency/urgency. Does report a light pink on the toilet paper when wiping after urinating. Denies vaginal discharge. Denies concern for sexual transmitted infections. Last menstrual period approximately 2 weeks ago. - Related Data Previous Rx's Medication Instructions Recorded Cephalexin [Keflex] 500 mg PO Q6HR #40 cap 01/09/21 Ketorolac [Toradol] 10 mg PO Q8HR #15 tab 01/09/21 Lidocaine 5% Patch [Lidoderm 5% 1 patch TOPICAL DAILY #7 patch 11/02/21 Patch] Ondansetron Odt [Zofran Odt] 4 mg PO Q8HR PRN #10 tab 11/02/21 Allergies Allergy/AdvReac Type Severity Reaction Status Date / Time adhesive tape Allergy Rash/Hives Verified 11/02/21 12:33 codeine Allergy Rash/Hives Verified 11/02/21 12:33 hydrochlorothiazide Allergy Rash/Hives Verified 11/02/21 12:33 hydrocodone [From Lortab] Allergy Rash/Hives Verified 11/02/21 12:33 latex Allergy Rash/Hives Verified 11/02/21 12:33 propranolol [From Inderal LA] Allergy Rash/Hives Verified 11/02/21 12:33 Review of Systems ROS Statement: Those systems with pertinent positive or pertinent negative responses have been documented in the HPI. ROS Other: All systems not noted in ROS Statement are negative. Past Medical History Past Medical History: Hypertension Additional Past Medical History / Comment(s): ON ANTIBIOTICS FOR RECENT SINUS INFECTION DR. KAPOOR AWARE History of Any Multi-Drug Resistant Organisms: None Reported Past Surgical History: Cholecystectomy, Tubal Ligation Past Anesthesia/Blood Transfusion Reactions: No Reported Reaction Past Psychological History: No Psychological Hx Reported Smoking Status: Never smoker Past Alcohol Use History: None Reported Past Drug Use History: None Reported - Past Family History Father Family Medical History: Cancer, Deep Vein Thrombosis (DVT) Mother Family Medical History: Deep Vein Thrombosis (DVT), Hypertension General Exam Limitations: no limitations General appearance: alert, in no apparent distress Head exam: Present: atraumatic, normocephalic, normal inspection Eye exam: Present: normal appearance, PERRL, EOMI. Absent: scleral icterus, conjunctival injection, periorbital swelling Respiratory exam: Present: normal lung sounds bilaterally. Absent: respiratory distress, wheezes, rales, rhonchi, stridor Cardiovascular Exam: Present: regular rate, normal rhythm, normal heart sounds. Absent: systolic murmur, diastolic murmur, rubs, gallop, clicks GI/Abdominal exam: Present: soft, tenderness (RLQ), normal bowel sounds. Absent: distended, guarding, rebound, rigid Back exam: Present: normal inspection, full ROM, CVA tenderness (R), paraspinal tenderness (right lumbar ). Absent: CVA tenderness (L), vertebral tenderness Neurological exam: Present: alert, oriented X3, CN II-XII intact Psychiatric exam: Present: normal affect, normal mood Skin exam: Present: warm, dry, intact, normal color. Absent: rash Course Vital Signs 11/02/21 11/02/21 12:33 13:55 Temperature 98.1 F Pulse Rate 128 H 92 Respiratory 20 16 Rate Blood Pressure 150/105 142/96 O2 Sat by Pulse 97 98 Oximetry Medical Decision Making - Medical Decision Making This is a 35-year-old female presenting with right sided back pain and abdominal pain. Thorough history and examination were performed. Patient does appear to be in pain. She is tachycardic at 128. The abdomen is soft. There is tenderness with palpation of the right lower quadrant and to a lesser extent, left lower quadrant. Positive McBurney point. Positive Rovsing sign. There is no tenderness with bilateral groin/pelvic region. There is significant right CVA tenderness as well as the right lumbar paravertebral muscles. At this time the patient's presentation and physical exam there is concern for appendicitis vs. kidney stone. I will obtain laboratory studies as well as CT of abdomen and pelvis with contrast. Laboratory studies significant for very mild leukocytosis at 11.1. Other laboratory studies are unremarkable. Urinalysis is not indicative of infection. CT of the abdomen and pelvis is negative for acute process. Given patient's history of right ovarian cyst I did obtain pelvic ultrasound which showed a normal right ovary with a corpus luteal cyst and no evidence for acute pelvic process. Pain and nausea controlled. Results discussed with patient. At this time there are no diagnostic studies to explain patient's symptoms. Possibly ovulation pain. Patient to follow-up with primary care provider. I will send her home with lidocaine patches Zofran. Dr. Arias is my attending. - Lab Data Result diagrams: 11/02/21 12:57 11/02/21 12:57 Lab Results 11/02/21 11/02/21 11/02/21 Range/Units 12:57 12:57 12:57 WBC 11.1 H (3.8-10.6) k/uL RBC 4.62 (3.80-5.40) m/uL Hgb 14.2 (11.4-16.0) gm/dL Hct 43.0 (34.0-46.0) % MCV 93.0 (80.0-100.0) fL MCH 30.7 (25.0-35.0) pg MCHC 33.0 (31.0-37.0) g/dL RDW 13.1 (11.5-15.5) % Plt Count 369 (150-450) k/uL MPV 7.3 Neutrophils % 65 % Lymphocytes % 28 % Monocytes % 3 % Eosinophils % 1 % Basophils % 1 % Neutrophils # 7.2 (1.3-7.7) k/uL Lymphocytes # 3.1 (1.0-4.8) k/uL Monocytes # 0.4 (0-1.0) k/uL Eosinophils # 0.2 (0-0.7) k/uL Basophils # 0.1 (0-0.2) k/uL Sodium 139 (137-145) mmol/L Potassium 4.0 (3.5-5.1) mmol/L Chloride 104 (98-107) mmol/L Carbon Dioxide 23 (22-30) mmol/L Anion Gap 12 mmol/L BUN 8 (7-17) mg/dL Creatinine 0.75 (0.52-1.04) mg/dL Est GFR (CKD-EPI)AfAm >90 (>60 ml/min/1.73 sqM) Est GFR (CKD-EPI)NonAf >90 (>60 ml/min/1.73 sqM) Glucose 141 H (74-99) mg/dL Plasma Lactic Acid Jaskaran (0.7-2.0) mmol/L Calcium 9.7 (8.4-10.2) mg/dL Total Bilirubin 0.6 (0.2-1.3) mg/dL AST 22 (14-36) U/L ALT 21 (4-34) U/L Alkaline Phosphatase 96 (38-126) U/L Total Protein 8.0 (6.3-8.2) g/dL Albumin 4.9 (3.5-5.0) g/dL Lipase 90 (23-300) U/L HCG, Qual Urine Color Light Yellow Urine Appearance Cloudy H (Clear) Urine pH 7.0 (5.0-8.0) Ur Specific [place] >1.050 H (1.001-1.035) Urine Protein Negative (Negative) Urine Glucose (UA) Negative (Negative) Urine Ketones Negative (Negative) Urine Blood Negative (Negative) Urine Nitrite Negative (Negative) Urine Bilirubin Negative (Negative) Urine Urobilinogen <2.0 (<2.0) mg/dL Ur Leukocyte Esterase Negative (Negative) Urine RBC 11 H (0-5) /hpf Urine WBC <1 (0-5) /hpf Ur Squamous Epith Cells 15 H (0-4) /hpf 11/02/21 11/02/21 Range/Units 12:57 12:57 WBC (3.8-10.6) k/uL RBC (3.80-5.40) m/uL Hgb (11.4-16.0) gm/dL Hct (34.0-46.0) % MCV (80.0-100.0) fL MCH (25.0-35.0) pg MCHC (31.0-37.0) g/dL RDW (11.5-15.5) % Plt Count (150-450) k/uL MPV Neutrophils % % Lymphocytes % % Monocytes % % Eosinophils % % Basophils % % Neutrophils # (1.3-7.7) k/uL Lymphocytes # (1.0-4.8) k/uL Monocytes # (0-1.0) k/uL Eosinophils # (0-0.7) k/uL Basophils # (0-0.2) k/uL Sodium (137-145) mmol/L Potassium (3.5-5.1) mmol/L Chloride (98-107) mmol/L Carbon Dioxide (22-30) mmol/L Anion Gap mmol/L BUN (7-17) mg/dL Creatinine (0.52-1.04) mg/dL Est GFR (CKD-EPI)AfAm (>60 ml/min/1.73 sqM) Est GFR (CKD-EPI)NonAf (>60 ml/min/1.73 sqM) Glucose (74-99) mg/dL Plasma Lactic Acid Jaskaran 2.0 (0.7-2.0) mmol/L Calcium (8.4-10.2) mg/dL Total Bilirubin (0.2-1.3) mg/dL AST (14-36) U/L ALT (4-34) U/L Alkaline Phosphatase (38-126) U/L Total Protein (6.3-8.2) g/dL Albumin (3.5-5.0) g/dL Lipase (23-300) U/L HCG, Qual Not Detected Urine Color Urine Appearance (Clear) Urine pH (5.0-8.0) Ur Specific [place] (1.001-1.035) Urine Protein (Negative) Urine Glucose (UA) (Negative) Urine Ketones (Negative) Urine Blood (Negative) Urine Nitrite (Negative) Urine Bilirubin (Negative) Urine Urobilinogen (<2.0) mg/dL Ur Leukocyte Esterase (Negative) Urine RBC (0-5) /hpf Urine WBC (0-5) /hpf Ur Squamous Epith Cells (0-4) /hpf Disposition Clinical Impression: Back pain, Right flank pain, Abdominal pain, Nausea Disposition: HOME SELF-CARE Condition: Good Instructions (If sedation given, give patient instructions): Abdominal Pain (ED), Back Pain (ED) Additional Instructions: Take Zofran as needed for nausea. Apply lidocaine patches as directed. Follow- up with primary care provider in one to 2 days. Return to the emergency department if you experience new, concerning, or worsening symptoms. Prescriptions: Lidocaine 5% Patch [Lidoderm 5% Patch] 1 patch TOPICAL DAILY #7 patch Ondansetron Odt [Zofran Odt] 4 mg PO Q8HR PRN #10 tab PRN Reason: Nausea Is patient prescribed a controlled substance at d/c from ED?: No Referrals: Hong Buenrostro MD [Primary Care Provider] - 1-2 days Time of Disposition: 16:23
[2021-11-02 13:29] LABS: ALT 21 U/L (4-34); AST 22 U/L (14-36); African American GFR (CKD) >90 (>60 ml/min/1.73 sqM); Albumin 4.9 g/dL (3.5-5.0); Alkaline Phosphatase 96 U/L (38-126); Anion Gap 12 mmol/L; Blood Urea Nitrogen 8 mg/dL (7-17); Calcium 9.7 mg/dL (8.4-10.2); Carbon Dioxide 23 mmol/L (22-30); Chloride 104 mmol/L (98-107); Glucose 141 mg/dL (74-99); Lipase 90 U/L (23-300); Non-African American GFR(CKD) >90 (>60 ml/min/1.73 sqM); Sodium 139 mmol/L (137-145); Total Bilirubin 0.6 mg/dL (0.2-1.3)
[2021-11-02] MEDS ORDERED: HYDROmorphone 0.5 MG/0.5 ML SYRINGE IVP STA (13:49)
--- NOTE | 2021-11-02 14:13 | CT ---
EXAMINATION TYPE: CT abdomen pelvis w con CT DLP: 1165 mGycm, Automated exposure control for dose reduction was used. DATE OF EXAM: 11/02/2021 1:48 PM COMPARISON: CT abdomen pelvis most recent from 01/09/2021. CLINICAL INDICATION:Female, 31 years old with history of appendicitis vs kidney stone concern; TECHNIQUE: Standard CT of the abdomen and pelvis following the administration of 100 cc of Isovue 3 00 IV contrast material. Coronal and sagittal reformats were performed. FINDINGS: LOWER CHEST: Unremarkable ABDOMEN LIVER: Diffusely hypoattenuating parenchyma. No suspicious lesion. GALLBLADDER AND BILE DUCTS: The gallbladder is surgically absent. Mild extrahepatic biliary ductal di latation which is not unexpected in the setting of prior cholecystectomy. No intrahepatic biliary danni t dilatation. PANCREAS: Unremarkable. SPLEEN: Unremarkable. ADRENAL GLANDS: Unremarkable. KIDNEYS AND URETERS: No evidence of hydronephrosis or renal calculus. Duplicated left collecting syst em. 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 PELVIS BLADDER: Incompletely distended but grossly unremarkable. REPRODUCTIVE: Unremarkable appearance of the uterus. Corpus luteum demonstrated within the right ovar y. ABDOMEN & PELVIS STOMACH AND BOWEL: Stomach and duodenum are unremarkable. No focal wall thickening or surrounding inf lammatory changes. The appendix is within normal limits. No evidence of bowel obstruction. PERITONEUM: No evidence of pneumoperitoneum or free fluid. VASCULATURE: No evidence of aortic aneurysm. MUSCULOSKELETAL: No acute osseous abnormalities LYMPH NODES: No gross evidence for lymphadenopathy. SOFT TISSUE/ABDOMINAL WALL: Small fat filled umbilical hernia. IMPRESSION: No acute abdominal/pelvic process.
[2021-11-02 14:51] LABS: Appearance,Urine Cloudy (Clear); Bilirubin,Urine Negative (Negative); Blood,Urine Negative (Negative); Color,Urine Light Yellow; Glucose,Urine (UA) Negative (Negative); Ketones,Urine Negative (Negative); Leukocyte Esterase,Urine Negative (Negative); Nitrite,Urine Negative (Negative); Protein,Urine Negative (Negative); RBC,Urine 11 /hpf (0-5); Squamous Epithelial Cell,Urine 15 /hpf (0-4); Urobilinogen,Urine <2.0 mg/dL (<2.0); WBC,Urine <1 /hpf (0-5)
[2021-11-02 14:53] LABS: Specific Gravity,Urine >1.050 (1.001-1.035)
--- NOTE | 2021-11-02 15:44 | US ---
EXAMINATION TYPE: US pelvic complete DATE OF EXAM: 11/02/2021 COMPARISON: Pelvic ultrasound 02/21/2021, CT abdomen pelvis 11/02/2021. CLINICAL HISTORY: RLQ pain, history of right ovarian cyst. H/o multiple CT's and US to confirm right dominate ovarian follicle, same RLQ pain today, tubal ligation, TECHNIQUE: TA. Transabdominal sonographic images of the pelvis were acquired. Date of LMP: 10/24/2021 EXAM MEASUREMENTS: Uterus: 8.0 x 5.1 x 4.1 cm Endometrial Stripe: 1.0 cm Right Ovary: 3.7 x 3.0 x 3.3 cm Left Ovary: not seen patient has hard time laying flat due to pain 1. Uterus: Anteverted wnl 2. Endometrium: wnl 3. Right Ovary: 2.3 x 1.9 x 1.8cm dominate follicle aka corpus luteal cyst 4. Left Ovary: not seen due to bowel gas, no LLQ pain Spectral, color and waveform doppler imaging shows good arterial and venous flow within the right o vary; there is no evidence for right ovarian torsion. 5. Bilateral Adnexa: wnl 6. Posterior cul-de-sac: wnl IMPRESSION: 1. No acute pelvic process. 2. Left ovary not visualized however appeared normal in size on earlier CT.
[2021-11-02] MEDS ORDERED: LIDOCAINE 5% PATCH TOPICAL SCH (16:30)
[2021-11-02 16:43] VITALS: BP 151/93; PULSE 93; RESP 18
== END 2021-11-02 16:40 | disposition home or self-care (01) ==
LOC: EC 12:25
DX: R10.9 Unspecified abdominal pain (principal); R11.2 Nausea with vomiting, unspecified; M54.50 Low back pain, unspecified; I10 Essential (primary) hypertension; Z88.5 Allergy status to narcotic agent; Z91.048 Other nonmedicinal substance allergy status; Z91.040 Latex allergy status
CPT/HCPCS: 99284; 96374; 96375; 96361; 36415; 80053; 83605; 83690; 85025; 81001; 84703; 76856; 74177; J2270; J2405; J1170; Q9967; 93976

== ENCOUNTER → 2021-12-10 | Outpatient (CLI) | payer OTHER ==
--- NOTE | 2021-12-10 13:57 | XR ---
EXAMINATION TYPE: XR chest 2V DATE OF EXAM: 12/10/2021 COMPARISON: 11/29/2019 HISTORY: Chest pain TECHNIQUE: Frontal and lateral views of the chest are obtained. FINDINGS: There is no focal air space opacity. No evidence for pneumothorax. No pleural effusion. The cardiac silhouette size is within normal limits. The osseous structures are grossly intact. IMPRESSION: 1. No acute cardiopulmonary process.
--- NOTE | 2021-12-10 13:58 | XR ---
EXAMINATION TYPE: XR abdomen complete w decub DATE OF EXAM: 12/10/2021 HISTORY: Pain. Technique: 4 views of the abdomen are submitted. Comparison: None. Findings: There is no convincing evidence of pneumoperitoneum. The Bowel gas pattern is nonspecific and nonobstructive. No sizable air-fluid levels are seen. No mass effects are noted. No renal calcifications are identified. IMPRESSION: 1. Nonspecific nonobstructive bowel gas pattern
== END | disposition home or self-care (01) ==
LOC: RADXRMAIN 13:04
PROVIDERS: ATTEND Family Medicine
DX: R07.89 Other chest pain (principal); R10.9 Unspecified abdominal pain
CPT/HCPCS: 71046; 74021

== ENCOUNTER 2021-12-20 21:04 | Emergency (ER) | payer OTHER ==
[2021-12-20 21:32] VITALS: TEMP 98
[2021-12-20 22:59] LABS: Appearance,Urine Turbid (Clear); Bilirubin,Urine 1+ (Negative); Blood,Urine Large (Negative); Color,Urine Dark Brown; Glucose,Urine (UA) Negative (Negative); Ketones,Urine Negative (Negative); Leukocyte Esterase,Urine Large (Negative); Mucus,Urine Many /hpf; Nitrite,Urine Positive (Negative); Protein,Urine 3+ (Negative); RBC,Urine >182 /hpf (0-5); Squamous Epithelial Cell,Urine 14 /hpf (0-4); WBC,Urine >182 /hpf (0-5)
[2021-12-20 23:02] LABS: Specific Gravity,Urine >1.500 (1.001-1.035)
[2021-12-20 23:03] VITALS: BP 151/99; PULSE 86; RESP 16
[2021-12-20] MEDS ORDERED: SODIUM CHLORIDE 0.9% 1,000 ML IV STA (23:16)
[2021-12-20] MEDS ORDERED: SODIUM CHLORIDE 0.9% 500 ML 500 ML IV STA (23:16)
[2021-12-20] MEDS ORDERED: ONDANSETRON 4 MG/2 ML VIAL IVP STA (23:16)
[2021-12-20] MEDS ORDERED: KETOROLAC 15 MG/ML 1 ML VIAL IVP STA (23:16)
--- NOTE | 2021-12-20 23:17 | ED ---
Female Urogenital HPI - General Chief complaint: Vaginal Bleeding Stated complaint: vaginal bleeding Time Seen by Provider: 12/20/21 23:02 Source: patient, family, RN notes reviewed, old records reviewed Mode of arrival: ambulatory Limitations: no limitations - History of Present Illness Initial comments: This is a 31-year-old female to the emergency department for evaluation. Patient presents today for evaluation of bleeding vaginally with burning. Abdominal pain. Feels weak and lightheaded. Patient has no fevers. No nausea or vomiting. Recent travel history or sick contacts. No prior history of urinary tract infection. Patient is at her tube site denying chance of . MD Complaint: vaginal bleeding, dysuria, pelvic pain -: hour(s) Location: perineum, suprapubic Radiation: suprapubic Severity: moderate Severity scale (1-10): 5 Quality: cramping, sharp, burning Consistency: constant Improves with: none Worsens with: urination Patient : No Associated Symptoms: vaginal bleeding, hematuria, weakness - Related Data Sexually active: Yes Previous Rx's Medication Instructions Recorded Cephalexin [Keflex] 500 mg PO Q6HR #40 cap 01/09/21 Ketorolac [Toradol] 10 mg PO Q8HR #15 tab 01/09/21 Lidocaine 5% Patch [Lidoderm 5% 1 patch TOPICAL DAILY #7 patch 11/02/21 Patch] Ondansetron Odt [Zofran Odt] 4 mg PO Q8HR PRN #10 tab 11/02/21 Ciprofloxacin HCl [Cipro] 500 mg PO Q12HR #14 tablet 12/21/21 Allergies Allergy/AdvReac Type Severity Reaction Status Date / Time adhesive tape Allergy Rash/Hives Verified 12/20/21 21:31 codeine Allergy Rash/Hives Verified 12/20/21 21:31 hydrochlorothiazide Allergy Rash/Hives Verified 12/20/21 21:31 hydrocodone [From Lortab] Allergy Rash/Hives Verified 12/20/21 21:31 latex Allergy Rash/Hives Verified 12/20/21 21:31 propranolol [From Inderal LA] Allergy Rash/Hives Verified 12/20/21 21:31 Review of Systems ROS Statement: Those systems with pertinent positive or pertinent negative responses have been documented in the HPI. ROS Other: All systems not noted in ROS Statement are negative. Past Medical History Past Medical History: Hypertension Additional Past Medical History / Comment(s): ON ANTIBIOTICS FOR RECENT SINUS INFECTION DR. KAPOOR AWARE History of Any Multi-Drug Resistant Organisms: None Reported Past Surgical History: Cholecystectomy, Tubal Ligation Past Anesthesia/Blood Transfusion Reactions: No Reported Reaction Past Psychological History: No Psychological Hx Reported Smoking Status: Never smoker Past Alcohol Use History: None Reported Past Drug Use History: None Reported - Past Family History Father Family Medical History: Cancer, Deep Vein Thrombosis (DVT) Mother Family Medical History: Deep Vein Thrombosis (DVT), Hypertension General Exam Limitations: no limitations General appearance: alert, in no apparent distress Head exam: Present: atraumatic, normocephalic, normal inspection Eye exam: Present: normal appearance, PERRL, EOMI. Absent: scleral icterus, conjunctival injection, periorbital swelling ENT exam: Present: normal exam, mucous membranes moist Neck exam: Present: normal inspection. Absent: tenderness, meningismus, lymphadenopathy Respiratory exam: Present: normal lung sounds bilaterally. Absent: respiratory distress, wheezes, rales, rhonchi, stridor Cardiovascular Exam: Present: normal rhythm, tachycardia, normal heart sounds. Absent: systolic murmur, diastolic murmur, rubs, gallop, clicks GI/Abdominal exam: Present: soft, normal bowel sounds. Absent: distended, tenderness, guarding, rebound, rigid Extremities exam: Present: normal inspection, full ROM, normal capillary refill. Absent: tenderness, pedal edema, joint swelling, calf tenderness Back exam: Present: normal inspection Neurological exam: Present: alert, oriented X3, CN II-XII intact Psychiatric exam: Present: normal affect, normal mood Skin exam: Present: warm, dry, intact, normal color. Absent: rash Course Vital Signs 12/20/21 12/20/21 21:28 22:59 Temperature 98 F Pulse Rate 103 H 86 Respiratory 20 16 Rate Blood Pressure 147/102 151/99 O2 Sat by Pulse 99 97 Oximetry - Reevaluation(s) Reevaluation #1: 12/21/21 00:36 Medical record is reviewed Reevaluation #2: 12/21/21 00:36 Patient informed results and questions are answered Reevaluation #3: 12/21/21 00:36 Patient feeling improved here in the ER Medical Decision Making - Medical Decision Making 31 female DF for evaluation hemorrhagic cystitis, urinary tract infection. Patient given IV resuscitation here in the ER IV antibiotics and will be discharged home on oral antibiotics for UTI with urine culture - Lab Data Result diagrams: 12/20/21 22:55 12/20/21 23:19 Lab Results 12/20/21 12/20/21 12/20/21 Range/Units 22:23 22:23 22:55 WBC 14.8 H (3.8-10.6) k/uL RBC 4.28 (3.80-5.40) m/uL Hgb 13.0 (11.4-16.0) gm/dL Hct 40.2 (34.0-46.0) % MCV 93.8 (80.0-100.0) fL MCH 30.4 (25.0-35.0) pg MCHC 32.5 (31.0-37.0) g/dL RDW 12.7 (11.5-15.5) % Plt Count 294 (150-450) k/uL MPV 7.4 Neutrophils % 76 % Lymphocytes % 18 % Monocytes % 4 % Eosinophils % 1 % Basophils % 1 % Neutrophils # 11.3 H (1.3-7.7) k/uL Lymphocytes # 2.7 (1.0-4.8) k/uL Monocytes # 0.5 (0-1.0) k/uL Eosinophils # 0.1 (0-0.7) k/uL Basophils # 0.1 (0-0.2) k/uL Sodium (137-145) mmol/L Potassium (3.5-5.1) mmol/L Chloride (98-107) mmol/L Carbon Dioxide (22-30) mmol/L Anion Gap mmol/L BUN (7-17) mg/dL Creatinine (0.52-1.04) mg/dL Est GFR (CKD-EPI)AfAm (>60 ml/min/1.73 sqM) Est GFR (CKD-EPI)NonAf (>60 ml/min/1.73 sqM) Glucose (74-99) mg/dL Calcium (8.4-10.2) mg/dL Total Bilirubin (0.2-1.3) mg/dL AST (14-36) U/L ALT (4-34) U/L Alkaline Phosphatase (38-126) U/L Total Protein (6.3-8.2) g/dL Albumin (3.5-5.0) g/dL Amylase (30-110) U/L Lipase (23-300) U/L Urine Color Dark Brown Urine Appearance Turbid H (Clear) Urine pH 6.0 (5.0-8.0) Ur Specific [place] >1.500 H (1.001-1.035) Urine Protein 3+ H (Negative) Urine Glucose (UA) Negative (Negative) Urine Ketones Negative (Negative) Urine Blood Large H (Negative) Urine Nitrite Positive H (Negative) Urine Bilirubin 1+ H (Negative) Urine Urobilinogen 6.0 (<2.0) mg/dL Ur Leukocyte Esterase Large H (Negative) Urine RBC >182 H (0-5) /hpf Urine WBC >182 H (0-5) /hpf Ur Squamous Epith Cells 14 H (0-4) /hpf Urine Mucus Many H (None) /hpf Urine HCG, Qual Not Detected (Not Detectd) 12/20/21 Range/Units 23:19 WBC (3.8-10.6) k/uL RBC (3.80-5.40) m/uL Hgb (11.4-16.0) gm/dL Hct (34.0-46.0) % MCV (80.0-100.0) fL MCH (25.0-35.0) pg MCHC (31.0-37.0) g/dL RDW (11.5-15.5) % Plt Count (150-450) k/uL MPV Neutrophils % % Lymphocytes % % Monocytes % % Eosinophils % % Basophils % % Neutrophils # (1.3-7.7) k/uL Lymphocytes # (1.0-4.8) k/uL Monocytes # (0-1.0) k/uL Eosinophils # (0-0.7) k/uL Basophils # (0-0.2) k/uL Sodium 139 (137-145) mmol/L Potassium 3.9 (3.5-5.1) mmol/L Chloride 101 (98-107) mmol/L Carbon Dioxide 25 (22-30) mmol/L Anion Gap 13 mmol/L BUN 7 (7-17) mg/dL Creatinine 0.72 (0.52-1.04) mg/dL Est GFR (CKD-EPI)AfAm >90 (>60 ml/min/1.73 sqM) Est GFR (CKD-EPI)NonAf >90 (>60 ml/min/1.73 sqM) Glucose 103 H (74-99) mg/dL Calcium 9.2 (8.4-10.2) mg/dL Total Bilirubin 0.5 (0.2-1.3) mg/dL AST 25 (14-36) U/L ALT 19 (4-34) U/L Alkaline Phosphatase 83 (38-126) U/L Total Protein 7.0 (6.3-8.2) g/dL Albumin 4.6 (3.5-5.0) g/dL Amylase 52 (30-110) U/L Lipase 102 (23-300) U/L Urine Color Urine Appearance (Clear) Urine pH (5.0-8.0) Ur Specific [place] (1.001-1.035) Urine Protein (Negative) Urine Glucose (UA) (Negative) Urine Ketones (Negative) Urine Blood (Negative) Urine Nitrite (Negative) Urine Bilirubin (Negative) Urine Urobilinogen (<2.0) mg/dL Ur Leukocyte Esterase (Negative) Urine RBC (0-5) /hpf Urine WBC (0-5) /hpf Ur Squamous Epith Cells (0-4) /hpf Urine Mucus (None) /hpf Urine HCG, Qual (Not Detectd) - Radiology Data Radiology results: report reviewed (CT of the abdomen and pelvis negative for acute disease), image reviewed Disposition Clinical Impression: UTI (urinary tract infection), Hemorrhagic cystitis, Hematuria Disposition: HOME SELF-CARE Condition: Good Instructions (If sedation given, give patient instructions): Urinary Tract Infection in Women (ED), Hematuria (ED) Prescriptions: Ciprofloxacin HCl [Cipro] 500 mg PO Q12HR #14 tablet Is patient prescribed a controlled substance at d/c from ED?: No Referrals: Hong Buenrostro MD [Primary Care Provider] - 1-2 days Time of Disposition: 00:40
[2021-12-20 23:34] LABS: Basophils # (A) 0.1 k/uL (0-0.2); Basophils % (A) 1 %; Eosinophils # (A) 0.1 k/uL (0-0.7); Eosinophils % (A) 1 %; HCT 40.2 % (34.0-46.0); Lymphocytes # (A) 2.7 k/uL (1.0-4.8); Lymphocytes % (A) 18 %; MCH 30.4 pg (25.0-35.0); MCHC 32.5 g/dL (31.0-37.0); MCV 93.8 fL (80.0-100.0); Mean Platelet Volume 7.4; Monocytes # (A) 0.5 k/uL (0-1.0); Monocytes % (A) 4 %; Neutrophils # (A) 11.3 k/uL (1.3-7.7); Neutrophils % (A) 76 %; Platelet Count 294 k/uL (150-450); RBC 4.28 m/uL (3.80-5.40); RDW 12.7 % (11.5-15.5); WBC 14.8 k/uL (3.8-10.6)
[2021-12-20 23:40] LABS: ALT 19 U/L (4-34); AST 25 U/L (14-36); African American GFR (CKD) >90 (>60 ml/min/1.73 sqM); Albumin 4.6 g/dL (3.5-5.0); Alkaline Phosphatase 83 U/L (38-126); Amylase 52 U/L (30-110); Anion Gap 13 mmol/L; Blood Urea Nitrogen 7 mg/dL (7-17); Calcium 9.2 mg/dL (8.4-10.2); Carbon Dioxide 25 mmol/L (22-30); Chloride 101 mmol/L (98-107); Glucose 103 mg/dL (74-99); Lipase 102 U/L (23-300); Non-African American GFR(CKD) >90 (>60 ml/min/1.73 sqM); Potassium 3.9 mmol/L (3.5-5.1); Sodium 139 mmol/L (137-145); Total Bilirubin 0.5 mg/dL (0.2-1.3)
--- NOTE | 2021-12-21 00:27 | CT ---
EXAMINATION TYPE: CT abdomen pelvis wo con DATE OF EXAM: 12/20/2021 COMPARISON: 11/02/2021 HISTORY: heavy vaginal bleeding & cramping X tonight, h/o tubal, pt states she recently finished abx CT DLP: 722.1 mGycm Automated exposure control for dose reduction was used. Images obtained from the diaphragm to the floor the pelvis with no contrast. Lung bases are clear. No pleural effusion heart size is normal. No pericardial effusion. Liver spleen and stomach pancreas appear intact. There are clips from cholecystectomy. Bile ducts are not dilated . There is no adrenal mass. Kidneys of normal size and contour. No hydronephrosis [place] posterior appears normal. No mesenteric edema. No ascites or free air. No sign of a bowel obstru ction. No inguinal hernia. No free fluid in the pelvis. No pelvic mass. Uterus is anteverted. No mesenteric edema. No ascites or free air. No sign of a bowel obstruction. Lumbar vertebrae abnormal spacing and alignment. Posterior elements are intact. No compression fractu re. The bony pelvis is intact. The hip joints are intact. IMPRESSION: Negative CT scan abdomen and pelvis. Normal appendix. Normal uterus. No evidence of endometrial mass. No adverse change compared to old exam.
[2021-12-21] MEDS ORDERED: CIPROFLOXACIN HCL 500 MG TAB PO STA (00:33)
[2021-12-21] MEDS ORDERED: PHENAZOPYRIDINE 200 MG TAB PO STA (00:33)
== END 2021-12-21 01:14 | disposition home or self-care (01) ==
LOC: EC 21:04
DX: N30.91 Cystitis, unspecified with hematuria (principal); I10 Essential (primary) hypertension; Z88.2 Allergy status to sulfonamides; Z91.040 Latex allergy status; Z88.8 Allergy status to other drugs, medicaments and biological substances; Z88.0 Allergy status to penicillin
CPT/HCPCS: 36415; 80053; 82150; 83690; 85025; 81001; 81025; 87086; 74176; 99285; 96365; 96375; 96361; J2405; J0696; J1885

== ENCOUNTER 2022-01-05 12:22 | Emergency (ER) | payer OTHER ==
[2022-01-05 12:29] VITALS: BP 157/96; PULSE 89; RESP 18; TEMP 97.7
--- NOTE | 2022-01-05 13:23 | ED ---
General Adult HPI - General Chief complaint: Fall Stated complaint: fall 16 stairs, arm/shoulder pain Time Seen by Provider: 01/05/22 13:01 Source: patient, RN notes reviewed Limitations: no limitations - History of Present Illness Initial comments: Patient is a pleasant 31-year-old female presenting to the emergency department with concerns with right upper arm pain. Onset of symptoms was this morning. Patient was walking down the steps when she tripped on a child's toy went down most the steps. Patient lateral right upper arm. Discomfort has been persistent since that time. Discomfort increases movement. Patient does have a history of previous shoulder dislocation. No head injury or loss of consciousness. No neck or back or abdominal discomfort. - Related Data Previous Rx's Medication Instructions Recorded Cephalexin [Keflex] 500 mg PO Q6HR #40 cap 01/09/21 Ketorolac [Toradol] 10 mg PO Q8HR #15 tab 01/09/21 Lidocaine 5% Patch [Lidoderm 5% 1 patch TOPICAL DAILY #7 patch 11/02/21 Patch] Ondansetron Odt [Zofran Odt] 4 mg PO Q8HR PRN #10 tab 11/02/21 Ciprofloxacin HCl [Cipro] 500 mg PO Q12HR #14 tablet 12/21/21 Allergies Allergy/AdvReac Type Severity Reaction Status Date / Time adhesive tape Allergy Rash/Hives Verified 01/05/22 12:29 codeine Allergy Rash/Hives Verified 01/05/22 12:29 hydrochlorothiazide Allergy Rash/Hives Verified 01/05/22 12:29 hydrocodone [From Lortab] Allergy Rash/Hives Verified 01/05/22 12:29 latex Allergy Rash/Hives Verified 01/05/22 12:29 propranolol [From Inderal LA] Allergy Rash/Hives Verified 01/05/22 12:29 Review of Systems ROS Statement: Those systems with pertinent positive or pertinent negative responses have been documented in the HPI. ROS Other: All systems not noted in ROS Statement are negative. Constitutional: Denies: fever Eyes: Denies: eye pain ENT: Denies: ear pain Respiratory: Denies: cough Cardiovascular: Denies: chest pain Endocrine: Denies: fatigue Gastrointestinal: Denies: abdominal pain Genitourinary: Denies: dysuria Musculoskeletal: Reports: as per HPI Skin: Denies: rash Neurological: Denies: weakness Past Medical History Past Medical History: Hypertension Additional Past Medical History / Comment(s): ON ANTIBIOTICS FOR RECENT SINUS INFECTION DR. KAPOOR AWARE History of Any Multi-Drug Resistant Organisms: None Reported Past Surgical History: Cholecystectomy, Tubal Ligation Past Anesthesia/Blood Transfusion Reactions: No Reported Reaction Past Psychological History: No Psychological Hx Reported Smoking Status: Never smoker Past Alcohol Use History: None Reported Past Drug Use History: None Reported - Past Family History Father Family Medical History: Cancer, Deep Vein Thrombosis (DVT) Mother Family Medical History: Deep Vein Thrombosis (DVT), Hypertension General Exam Limitations: no limitations General appearance: alert, in no apparent distress Head exam: Present: normocephalic Eye exam: Present: normal appearance, PERRL Neck exam: Present: normal inspection. Absent: tenderness Respiratory exam: Present: normal lung sounds bilaterally Cardiovascular Exam: Present: regular rate, normal rhythm Expanded Peripheral pulses: 2+: Radial (R) GI/Abdominal exam: Present: soft. Absent: tenderness Extremities exam: Present: tenderness (Right lateral upper humerus) Back exam: Present: normal inspection. Absent: vertebral tenderness Neurological exam: Present: alert Psychiatric exam: Present: normal affect, normal mood Skin exam: Present: normal color Course Vital Signs 01/05/22 12:26 Temperature 97.7 F Pulse Rate 89 Respiratory 18 Rate Blood Pressure 157/96 O2 Sat by Pulse 95 Oximetry Medical Decision Making - Medical Decision Making Patient reevaluated and updated - Radiology Data Radiology results: image reviewed (X-ray right humerus shows no acute abnormality) Disposition Clinical Impression: Fall, Arm contusion Disposition: HOME SELF-CARE Condition: Stable Instructions (If sedation given, give patient instructions): Arm Pain (ED) Additional Instructions: Continue Motrin as needed. Please do follow-up with primary care physician in the next couple days for recheck. Return for increased pain, weakness, sw elling, worsening symptoms or other concerns. Is patient prescribed a controlled substance at d/c from ED?: No Referrals: Hong Buenrsotro MD [Primary Care Provider] - 1-2 days Time of Disposition: 14:12
--- NOTE | 2022-01-05 14:03 | XR ---
EXAMINATION TYPE: XR humerus RT DATE OF EXAM: 01/05/2022 COMPARISON: NONE HISTORY: 31-year-old female fall downstairs, pain TECHNIQUE: 2 views FINDINGS: The shoulder and elbow articulations appear grossly intact. No acute fracture is seen. IMPRESSION: No acute osseous abnormality seen.
[2022-01-05] MEDS ORDERED: traMADol 50 MG STARTER PACK 3 TAB BTL PO STA (14:12)
== END 2022-01-05 14:32 | disposition home or self-care (01) ==
LOC: EC 12:22
DX: S40.021A Contusion of right upper arm, initial encounter (principal); I10 Essential (primary) hypertension; Z79.899 Other long term (current) drug therapy; Z88.5 Allergy status to narcotic agent; Z91.040 Latex allergy status; Z91.048 Other nonmedicinal substance allergy status; Z88.8 Allergy status to other drugs, medicaments and biological substances; W01.0XXA Fall on same level from slipping, tripping and stumbling without subsequent striking against object, initial encounter; Y93.01 Activity, walking, marching and hiking
CPT/HCPCS: 99283

== ENCOUNTER 2022-05-04 14:47 | Emergency (ER) | payer OTHER ==
[2022-05-04 14:54] VITALS: TEMP 98.5
--- NOTE | 2022-05-04 16:26 | ED ---
General Adult HPI - General Source: patient Mode of arrival: ambulatory Limitations: no limitations <Abby Friend - Last Filed: 05/04/22 16:25> <Jayda Ness - Last Filed: 05/04/22 22:46> - General Chief complaint: GI Bleed Stated complaint: vomiting - History of Present Illness Initial comments: 31-year-old female presents emergency department for right upper quadrant abdominal pain 3 days. She notes accompanying symptoms of nausea and vomiting. She reports seeing bright red blood in her vomit this morning. (Abby Friend) 31-year-old female presents to emergency department reporting nausea and vomiting for the past 3 days. States that she can't hold anything down. Denies sick contacts with similar symptoms. Also reports to right-sided pulsating flank pain. Denies dysuria, hematuria or difficulty voiding. Has not had a bowel movement due to lack of oral intake. Denies constipation or diarrhea. No concern for as she has had a tubal ligation. No vaginal bleeding or discharge. States that she has been throwing up so much that she now sees streaks of blood in her vomit. She admits to chills and a fever. Denies any cough or shortness of breath. No other alleviating, precipitating or modifying factors (Jayda Ness) - Related Data Home Medications Medication Instructions Recorded Confirmed Ibuprofen [Motrin] 600 mg PO Q8HR PRN 05/04/22 05/04/22 Previous Rx's Medication Instructions Recorded Ondansetron Odt [Zofran Odt] 4 mg PO Q8HR PRN #10 tab 11/02/21 Dicyclomine [Bentyl] 20 mg PO TID PRN #30 tablet 05/04/22 Ondansetron Odt [Zofran Odt] 4 mg PO Q8HR PRN #15 tab 05/04/22 Allergies Allergy/AdvReac Type Severity Reaction Status Date / Time adhesive tape Allergy Rash/Hives Verified 05/04/22 18:39 codeine Allergy Rash/Hives Verified 05/04/22 18:39 hydrochlorothiazide Allergy Rash/Hives Verified 05/04/22 18:39 hydrocodone [From Lortab] Allergy Rash/Hives Verified 05/04/22 18:39 latex Allergy Rash/Hives Verified 05/04/22 18:39 propranolol [From Inderal LA] Allergy Rash/Hives Verified 05/04/22 18:39 Review of Systems ROS Other: All systems not noted in ROS Statement are negative. <Abby Friend - Last Filed: 05/04/22 16:25> ROS Other: All systems not noted in ROS Statement are negative. <Jayda Ness - Last Filed: 05/04/22 22:46> ROS Statement: Those systems with pertinent positive or pertinent negative responses have been documented in the HPI. Past Medical History Past Medical History: Hypertension Additional Past Medical History / Comment(s): ON ANTIBIOTICS FOR RECENT SINUS INFECTION DR. KAPOOR AWARE History of Any Multi-Drug Resistant Organisms: None Reported Past Surgical History: Cholecystectomy, Tubal Ligation Past Anesthesia/Blood Transfusion Reactions: No Reported Reaction Past Psychological History: No Psychological Hx Reported Smoking Status: Never smoker Past Alcohol Use History: None Reported Past Drug Use History: None Reported - Past Family History Father Family Medical History: Cancer, Deep Vein Thrombosis (DVT) Mother Family Medical History: Deep Vein Thrombosis (DVT), Hypertension <Abby Friend - Last Filed: 05/04/22 16:25> General Exam Limitations: no limitations <Abby Friend - Last Filed: 05/04/22 16:25> Course Vital Signs 05/04/22 05/04/22 14:52 21:34 Temperature 98.5 F Pulse Rate 104 H 110 H Respiratory 20 18 Rate Blood Pressure 125/76 126/84 O2 Sat by Pulse 99 96 Oximetry Medical Decision Making - Lab Data Result diagrams: 05/04/22 18:36 05/04/22 18:36 <Jayda Ness - Last Filed: 05/04/22 22:46> - Medical Decision Making Was pt. sent in by a medical professional or institution? @ -[by , PA, VETERINARY PATHOLOGIST, urgent care, hospital, or usp] Did you speak to anyone other than the patient for history? @ -[EMS, parent, family, police, friend?] Did you review nursing and triage notes? @ -[agree or disagree, why?] Were old charts reviewed? @ -[outside hosp., previous admissions, EMS record, old EKG, old radiological studies, urgent care reports/EKGs, usp records?] Differential Diagnosis? @ -[chest pain, altered mental status abdominal pain women, abdominal pain men, vaginal bleeding, weakness, fever, dyspnea, syncope, headache, dizziness, GI bleed, back pain, seizure] EKG interpreted by me (3pts min.)? @ -[none] X-rays interpreted by me (1pt min.)? @ -[none] CT interpreted by me (1pt min.)? @ -[none] U/S interpreted by me (1pt. min.)? @ -[none] What testing was considered but not performed? (CT, X-rays, U/S, labs)? Why? @ [CT, X-rays, U/S, labs? Why?] What meds were considered but not given? Why? @ -[none] Did you discuss the management of the patient with other professionals? @ -[professionals i.e. Dr, PA, VETERINARY PATHOLOGIST, Lab, RT, Psych Nurse, Cinder Crusher Operator, Automotive Customer Experience Advisor, Teacher, Biology Lecturer, lining caser? Give summary] Did you reconcile home meds? @ -[none] Was smoking cessation discussed for >3mins.? @ -[none] Was critical care preformed (if so, how long)? @ -[none] Were there social determinants of health that impacted care today? How? (Homelessness, low income, unemployed, alcoholism, drug addiction, transportation, low edu. Level, literacy, decrease access to med. care, detention, rehab)? @ -[Homelessness, low income, unemployed, alcoholism, drug addiction, transportation, low edu. Level, literacy, decrease access to med. care, detention, rehab?] Was there de-escalation of care discussed even if they declined? (Discuss DNR or withdrawal of care, Hospice)? @ -[Discuss DNR or withdrawal of care, Hospice?] What co-morbidities impacted this encounter? (DM, HTN, Smoking, COPD, CAD, Cancer, CVA, Hep., AIDS, mental health diagnosis, sleep apnea, morbid obesity)? @ -[DM, HTN, Smoking, COPD, CAD, Cancer, CVA, Hep., AIDS, mental health diagnosis, sleep apnea, morbid obesity?] Was patient admitted / discharged? Upon arrival patient was placed into [facility]. A thorough history and physical exam is performed. IV access is established. Patient was given Reglan and Benadryl for nausea. She is also given Toradol for pain control. Laboratory studies are conducted. Patient has had multiple CTs in the past of her abdomen and therefore I did attempt a abdominal ultrasound. Abdominal ultrasound is read as positive for possible appendicitis. Because of this he recommend CT of the abdomen. CT is performed which demonstrates a normal appen ck. Patient is reevaluated and reports that she does feel improved. She feels comfortable going home at this time even though admission to the hospital is recommended. Patient will be discharged home with a prescription for Zofran and Bentyl. Instructed to take the medications as directed. Follow up with her doctor and return for any new or worsening symptoms. He is agreeable and discharged home in stable condition Undiagnosed new problem with uncertain prognosis? @ -[none] Drug Therapy requiring intensive monitoring for toxicity (Heparin, Nitro, Insulin, Cardizem)? @ -[none] Were any procedures done? @ -[none] Diagnosis/symptom? @ -[default] Acute, or Chronic, or Acute on Chronic? @ -[default] Uncomplicated (without systemic symptoms) or Complicated (systemic symptoms)? @ -[default] Side effects of treatment? @ -[none] Exacerbation, Progression, or Severe Exacerbation] @ -[no] Poses a threat to life or bodily function? @ -[no] (Jayda Ness) - Lab Data Lab Results 05/04/22 05/04/22 05/04/22 Range/Units 18:36 18:36 18:36 WBC 19.3 H (3.8-10.6) k/uL RBC 4.79 (3.80-5.40) m/uL Hgb 15.1 (11.4-16.0) gm/dL Hct 43.4 (34.0-46.0) % MCV 90.7 (80.0-100.0) fL MCH 31.6 (25.0-35.0) pg MCHC 34.8 (31.0-37.0) g/dL RDW 12.7 (11.5-15.5) % Plt Count 289 (150-450) k/uL MPV 7.6 Neutrophils % 96 % Lymphocytes % 2 % Monocytes % 2 % Eosinophils % 0 % Basophils % 0 % Neutrophils # 18.5 H (1.3-7.7) k/uL Lymphocytes # 0.4 L (1.0-4.8) k/uL Monocytes # 0.3 (0-1.0) k/uL Eosinophils # 0.0 (0-0.7) k/uL Basophils # 0.0 (0-0.2) k/uL Sodium 139 (137-145) mmol/L Potassium 4.4 (3.5-5.1) mmol/L Chloride 101 (98-107) mmol/L Carbon Dioxide 24 (22-30) mmol/L Anion Gap 14 mmol/L BUN 14 (7-17) mg/dL Creatinine 0.87 (0.52-1.04) mg/dL Est GFR (CKD-EPI)AfAm >90 (>60 ml/min/1.73 sqM) Est GFR (CKD-EPI)NonAf 89 (>60 ml/min/1.73 sqM) Glucose 131 H (74-99) mg/dL Lactic Ac Sepsis Rflx Plasma Lactic Acid Jaskaran 3.1 H* (0.7-2.0) mmol/L Calcium 9.4 (8.4-10.2) mg/dL Total Bilirubin 1.0 (0.2-1.3) mg/dL AST 27 (14-36) U/L ALT 28 (4-34) U/L Alkaline Phosphatase 92 (38-126) U/L Total Protein 8.8 H (6.3-8.2) g/dL Albumin 5.3 H (3.5-5.0) g/dL Lipase 83 (23-300) U/L Urine Color Urine Appearance (Clear) Urine pH (5.0-8.0) Ur Specific [place] (1.001-1.035) Urine Protein (Negative) Urine Glucose (UA) (Negative) Urine Ketones (Negative) Urine Blood (Negative) Urine Nitrite (Negative) Urine Bilirubin (Negative) Urine Urobilinogen (<2.0) mg/dL Ur Leukocyte Esterase (Negative) Urine RBC (0-5) /hpf Urine WBC (0-5) /hpf Ur Squamous Epith Cells (0-4) /hpf Urine Bacteria (None) /hpf Hyaline Casts (0-2) /lpf Urine Mucus (None) /hpf Urine HCG, Qual (Not Detectd) Influenza Type A (PCR) (Not Detectd) Influenza Type B (PCR) (Not Detectd) RSV (PCR) (Not Detectd) SARS-CoV-2 (PCR) (Not Detectd) 05/04/22 05/04/22 05/04/22 Range/Units 19:02 19:27 19:27 WBC (3.8-10.6) k/uL RBC (3.80-5.40) m/uL Hgb (11.4-16.0) gm/dL Hct (34.0-46.0) % MCV (80.0-100.0) fL MCH (25.0-35.0) pg MCHC (31.0-37.0) g/dL RDW (11.5-15.5) % Plt Count (150-450) k/uL MPV Neutrophils % % Lymphocytes % % Monocytes % % Eosinophils % % Basophils % % Neutrophils # (1.3-7.7) k/uL Lymphocytes # (1.0-4.8) k/uL Monocytes # (0-1.0) k/uL Eosinophils # (0-0.7) k/uL Basophils # (0-0.2) k/uL Sodium (137-145) mmol/L Potassium (3.5-5.1) mmol/L Chloride (98-107) mmol/L Carbon Dioxide (22-30) mmol/L Anion Gap mmol/L BUN (7-17) mg/dL Creatinine (0.52-1.04) mg/dL Est GFR (CKD-EPI)AfAm (>60 ml/min/1.73 sqM) Est GFR (CKD-EPI)NonAf (>60 ml/min/1.73 sqM) Glucose (74-99) mg/dL Lactic Ac Sepsis Rflx Y Plasma Lactic Acid Jaskaran (0.7-2.0) mmol/L Calcium (8.4-10.2) mg/dL Total Bilirubin (0.2-1.3) mg/dL AST (14-36) U/L ALT (4-34) U/L Alkaline Phosphatase (38-126) U/L Total Protein (6.3-8.2) g/dL Albumin (3.5-5.0) g/dL Lipase (23-300) U/L Urine Color Yellow Urine Appearance Cloudy H (Clear) Urine pH 5.5 (5.0-8.0) Ur Specific [place] 1.027 (1.001-1.035) Urine Protein Trace H (Negative) Urine Glucose (UA) Negative (Negative) Urine Ketones 2+ H (Negative) Urine Blood Small H (Negative) Urine Nitrite Negative (Negative) Urine Bilirubin Negative (Negative) Urine Urobilinogen <2.0 (<2.0) mg/dL Ur Leukocyte Esterase Negative (Negative) Urine RBC 1 (0-5) /hpf Urine WBC 2 (0-5) /hpf Ur Squamous Epith Cells 4 (0-4) /hpf Urine Bacteria Rare H (None) /hpf Hyaline Casts 4 H (0-2) /lpf Urine Mucus Many H (None) /hpf Urine HCG, Qual Not Detected (Not Detectd) Influenza Type A (PCR) (Not Detectd) Influenza Type B (PCR) (Not Detectd) RSV (PCR) (Not Detectd) SARS-CoV-2 (PCR) (Not Detectd) 05/04/22 Range/Units 19:27 WBC (3.8-10.6) k/uL RBC (3.80-5.40) m/uL Hgb (11.4-16.0) gm/dL Hct (34.0-46.0) % MCV (80.0-100.0) fL MCH (25.0-35.0) pg MCHC (31.0-37.0) g/dL RDW (11.5-15.5) % Plt Count (150-450) k/uL MPV Neutrophils % % Lymphocytes % % Monocytes % % Eosinophils % % Basophils % % Neutrophils # (1.3-7.7) k/uL Lymphocytes # (1.0-4.8) k/uL Monocytes # (0-1.0) k/uL Eosinophils # (0-0.7) k/uL Basophils # (0-0.2) k/uL Sodium (137-145) mmol/L Potassium (3.5-5.1) mmol/L Chloride (98-107) mmol/L Carbon Dioxide (22-30) mmol/L Anion Gap mmol/L BUN (7-17) mg/dL Creatinine (0.52-1.04) mg/dL Est GFR (CKD-EPI)AfAm (>60 ml/min/1.73 sqM) Est GFR (CKD-EPI)NonAf (>60 ml/min/1.73 sqM) Glucose (74-99) mg/dL Lactic Ac Sepsis Rflx Plasma Lactic Acid J[place]aran (0.7-2.0) mmol/L Calcium (8.4-10.2) mg/dL Total Bilirubin (0.2-1.3) mg/dL AST (14-36) U/L ALT (4-34) U/L Alkaline Phosphatase (38-126) U/L Total Protein (6.3-8.2) g/dL Albumin (3.5-5.0) g/dL Lipase (23-300) U/L Urine Color Urine Appearance (Clear) Urine pH (5.0-8.0) Ur Specific [place] (1.001-1.035) Urine Protein (Negative) Urine Glucose (UA) (Negative) Urine Ketones (Negative) Urine Blood (Negative) Urine Nitrite (Negative) Urine Bilirubin (Negative) Urine Urobilinogen (<2.0) mg/dL Ur Leukocyte Esterase (Negative) Urine RBC (0-5) /hpf Urine WBC (0-5) /hpf Ur Squamous Epith Cells (0-4) /hpf Urine Bacteria (None) /hpf Hyaline Casts (0-2) /lpf Urine Mucus (None) /hpf Urine HCG, Qual (Not Detectd) Influenza Type A (PCR) Not Detected (Not Detectd) Influenza Type B (PCR) Not Detected (Not Detectd) RSV (PCR) Not Detected (Not Detectd) SARS-CoV-2 (PCR) Not Detected (Not Detectd) Disposition <Abby Friend - Last Filed: 05/04/22 16:25> Is patient prescribed a controlled substance at d/c from ED?: No Time of Disposition: 21:25 <Jayda Ness - Last Filed: 05/04/22 22:46> Clinical Impression: Flank pain, Nausea and vomiting, Leukocytosis Disposition: HOME SELF-CARE Condition: Stable Instructions (If sedation given, give patient instructions): Acute Nausea and Vomiting (ED) Additional Instructions: Please take the nausea and cramping medications as directed. Follow-up with your doctor in 2-4 days. If you have any new or worsening symptoms, please return to the emergency department Prescriptions: Dicyclomine [Bentyl] 20 mg PO TID PRN #30 tablet PRN Reason: Pain Ondansetron Odt [Zofran Odt] 4 mg PO Q8HR PRN #15 tab PRN Reason: Nausea Referrals: Hong Buenrostro MD [Primary Care Provider] - 1-2 days
[2022-05-04] MEDS ORDERED: METOCLOPRAMIDE 5 MG/ML 2 ML VIAL IVP STA (18:16)
[2022-05-04] MEDS ORDERED: SODIUM CHLORIDE 0.9% 1,000 ML IV STA (18:16)
[2022-05-04] MEDS ORDERED: diphenhydrAMINE 50 MG/ML 1 ML VIAL IVP STA (18:16)
[2022-05-04] MEDS ORDERED: KETOROLAC 15 MG/ML 1 ML VIAL IVP STA (18:16)
[2022-05-04 19:00] LABS: ALT 28 U/L (4-34); AST 27 U/L (14-36); African American GFR (CKD) >90 (>60 ml/min/1.73 sqM); Albumin 5.3 g/dL (3.5-5.0); Alkaline Phosphatase 92 U/L (38-126); Anion Gap 14 mmol/L; Blood Urea Nitrogen 14 mg/dL (7-17); Calcium 9.4 mg/dL (8.4-10.2); Carbon Dioxide 24 mmol/L (22-30); Chloride 101 mmol/L (98-107); Glucose 131 mg/dL (74-99); Lipase 83 U/L (23-300); Non-African American GFR(CKD) 89 (>60 ml/min/1.73 sqM); Potassium 4.4 mmol/L (3.5-5.1); Sodium 139 mmol/L (137-145); Total Protein 8.8 g/dL (6.3-8.2)
[2022-05-04 19:03] LABS: Basophils % (A) 0 %; Eosinophils % (A) 0 %; HCT 43.4 % (34.0-46.0); HGB 15.1 gm/dL (11.4-16.0); Lymphocytes # (A) 0.4 k/uL (1.0-4.8); Lymphocytes % (A) 2 %; MCH 31.6 pg (25.0-35.0); MCHC 34.8 g/dL (31.0-37.0); MCV 90.7 fL (80.0-100.0); Mean Platelet Volume 7.6; Monocytes # (A) 0.3 k/uL (0-1.0); Monocytes % (A) 2 %; Neutrophils # (A) 18.5 k/uL (1.3-7.7); Neutrophils % (A) 96 %; Platelet Count 289 k/uL (150-450); RBC 4.79 m/uL (3.80-5.40); RDW 12.7 % (11.5-15.5); WBC 19.3 k/uL (3.8-10.6)
--- NOTE | 2022-05-04 19:37 | US ---
EXAMINATION TYPE: US abdomen APPY DATE OF EXAM: 05/04/2022 COMPARISON: NONE CLINICAL HISTORY: rlq pain. RLQ pain with n/v x 3 days. Patient states the pain radiates to her belly button. WBC: 19.3 TECHNIQUE: Multiple sonographic images of the right lower quadrant were obtained with graded compress ion. FINDINGS: APPENDIX AP Diameter (normal < 6mm): 13.0 mm Measured outer wall to outer wall. Is the appendix seen in its entirety from the proximal cecum to distal end: Yes Is the appendix compressible: Partially. Appendix appears to compress in sag, but in the transverse plane the appendix does not compress completely Does the appendix wall appear hypervascular: No Is an appendicolith present: No Is there inflammatory changes or free fluid present: May be some free fluid adjacent to appendix SPOUTER NOTES: Hypoechoic tubular structure visualized in RLQ superior to iliacs. This structur e appears to be partially compressible. Slight rebound tenderness noted. Elevated WBC IMPRESSION: Tubular structure felt to represent the appendix is dilated with with partial compression suggesting appendicitis. Consider CT for confirmation.
[2022-05-04 20:25] LABS: Appearance,Urine Cloudy (Clear); Bacteria,Urine Rare /hpf; Bilirubin,Urine Negative (Negative); Blood,Urine Small (Negative); Color,Urine Yellow; Glucose,Urine (UA) Negative (Negative); Hyaline Casts,Urine 4 /lpf (0-2); Ketones,Urine 2+ (Negative); Leukocyte Esterase,Urine Negative (Negative); Mucus,Urine Many /hpf; Nitrite,Urine Negative (Negative); PH, Urine 5.5 (5.0-8.0); Protein,Urine Trace (Negative); RBC,Urine 1 /hpf (0-5); Specific Gravity,Urine 1.027 (1.001-1.035); Squamous Epithelial Cell,Urine 4 /hpf (0-4); Urobilinogen,Urine <2.0 mg/dL (<2.0); WBC,Urine 2 /hpf (0-5)
--- NOTE | 2022-05-04 20:53 | CT ---
EXAMINATION TYPE: CT abdomen pelvis w con CT DLP: 1229.3 mGycm, Automated exposure control for dose reduction was used. DATE OF EXAM: 05/04/2022 8:25 PM COMPARISON: CT abdomen pelvis most recent from 12/21/2019 CLINICAL INDICATION:Female, 31 years old with history of appendicitis; abd pain. Tender to the touch. N/V X 3 DAYS. TECHNIQUE: Axial CT of the abdomen and pelvis. Sagittal and coronal reformats were created on a [employer] workstation. Contrast used:100ml mL of Isovue 300 with IV Contrast, Oral contrast used: without Oral Contrast FINDINGS: LOWER CHEST: Unremarkable ABDOMEN LIVER: Diffusely hypoattenuating parenchyma. GALLBLADDER AND BILE DUCTS: The gallbladder is surgically absent. PANCREAS: Unremarkable. SPLEEN: Unremarkable. ADRENAL GLANDS: Unremarkable. KIDNEYS AND URETERS: No evidence of hydronephrosis or renal calculus. Left lateral kidney fat indenta tion which could represent a small angiomyolipoma. PELVIS BLADDER: Unremarkable REPRODUCTIVE: Unremarkable. ABDOMEN & PELVIS STOMACH AND BOWEL: No evidence of bowel obstruction. The appendix is normal, finding on prior ultraso und likely represented a loop of small bowel. PERITONEUM/RETROPERITONEUM: Trace fluid is seen within the pelvis, no evidence of pneumoperitoneum.. VASCULATURE: No evidence of aortic aneurysm. MUSCULOSKELETAL: No acute osseous abnormalities LYMPH NODES: No gross evidence for lymphadenopathy. SOFT TISSUE/ABDOMINAL WALL: Small fat-containing umbilical hernia. IMPRESSION: 1. The appendix is normal. Ultrasound findings likely represented a loop of small bowel. No evidence for obstructive uropathy or bowel obstruction. 2. No definitive acute abdominal process. 3. Hepatic steatosis.
[2022-05-04] MEDS ORDERED: DICYCLOMINE 10 MG CAP PO STA (21:19)
[2022-05-04] MEDS ORDERED: ONDANSETRON 4 MG ODT STARTER PACK 2 TAB BTL PO STA (21:19)
[2022-05-04 21:35] VITALS: BP 126/84; PULSE 110; RESP 18
== END 2022-05-04 21:34 | disposition home or self-care (01) ==
LOC: EC 14:47
DX: R10.11 Right upper quadrant pain (principal); R11.2 Nausea with vomiting, unspecified; D72.829 Elevated white blood cell count, unspecified; I10 Essential (primary) hypertension; Z91.048 Other nonmedicinal substance allergy status; Z88.5 Allergy status to narcotic agent; Z91.040 Latex allergy status; Z88.8 Allergy status to other drugs, medicaments and biological substances; Z20.822 Contact with and (suspected) exposure to COVID-19; Z79.899 Other long term (current) drug therapy
CPT/HCPCS: 36415; 80053; 83605; 83690; 85025; 81001; 81025; 87636; 76705; 74177; 99285; 96374; 96375 ×2; 96361 ×3; J1200; J2765; J1885; S0119; Q9967

== ENCOUNTER 2022-05-06 11:11 | Emergency (ER) | payer OTHER ==
[2022-05-06 11:20] VITALS: TEMP 97.7
--- NOTE | 2022-05-06 12:56 | ED ---
General Adult HPI - General Chief complaint: Abdominal Pain Stated complaint: Abdominal pain Time Seen by Provider: 05/06/22 11:57 Source: patient Mode of arrival: ambulatory - History of Present Illness Initial comments: Dictation was produced using [employer] dictation software. please excuse any grammatical, word or spelling errors. Chief Complaint: 31-year-old female presents emergency department for persistent abdominal pain History of Present Illness: Since 31-year-old female she was just here in emergency department 2 days ago. Chief complaint that time was abdominal pain. Patient had CT of the abdomen. She has pain in the right lower quadrant has been ongoing for several days. Should an ultrasound that was suspicious for acute appendicitis. She ultimately in the getting the CT of the abdomen which was unremarkable. Patient complains of mild nausea. No vomiting. No fever constitutional symptoms. The ROS documented in this emergency department record has been reviewed and confirmed by me. Those systems with pertinent positive or negative responses have been documented in the HPI. All other systems are other negative and/or noncontributory. PHYSICAL EXAM: General Impression: Alert and oriented x3, not in acute distress HEENT: Normocephalic atraumatic, extra-ocular movements intact, pupils equal and reactive to light bilaterally, mucous membranes moist. Cardiovascular: Heart regular rate and rhythm Chest: Able to complete full sentences, no retractions, no tachypnea Abdomen: abdomen soft, mildly palpatory tenderness to the right lower quadrant, non-distended, no organomegaly Musculoskeletal: Pulses present and equal in all extremities, no peripheral edema Motor: no focal deficits noted Neurological: CN II-XII grossly intact, no focal motor or sensory deficits noted Skin: Intact with no visualized rashes Psych: Normal affect and mood ED course: 31-year-old female represents emergency department 2 days after being seen in the emergency department for right lower quadrant abdominal pain. Patient's full. Bedside. She does have mild reproducible abdominal tenderness. All signs upon arrival are within acceptable limits. Nursing notes and chart review was performed Laboratory evaluation obtained. Repeat CBC metabolic panel abdominal labs are negative. Urinalysis shows 4+ ketones. No hyperglycemia. Abdominal x-ray is unremarkable. This point patient doesn't have any high-risk features. She is reevaluated at bedside to 5 PM found with stable medical condition. Patient discharged strongly advised follow primary care doctor for outpatient management. Was pt. sent in by a medical professional or institution (ALVIN Pena, MANAGER LINE, urgent care, hospital, or [place] [facility] facility...) When possible be specific @ -No Did you speak to anyone other than the patient for history (EMS, parent, family, police, friend...)? What history was obtained from this source @ -No Did you review nursing and triage notes (agree or disagree)? Why? @ -I reviewed and agree with nursing and triage notes Were old charts reviewed (outside hosp., previous admission, EMS record, old EKG, old radiological studies, urgent care reports/EKG's, [place] [facility] facility records)? Report findings @ -No old charts were reviewed Differential Diagnosis (chest pain, altered mental status, abdominal pain women, abdominal pain men, vaginal bleeding, weakness, fever, dyspnea, syncope, headache, dizziness, GI bleed, back pain, seizure, CVA, palpatations, mental health)? @ -Differential Abdominal Pain Women: Appendicitis, Cholecystitis, diverticulosis, ischemic bowel, pancreatitis, hepatitis, UTI, gastroenteritis, AAA, incarcerated hernia, bowel obstruction, constipation, inflammatory bowel, hepatitis, peptic ulcer disease, splenic infarction, perforated viscus, vulvitis, ovarian torsion, PID, kidney stone, placenta abruption, this is not meant to be an all-inclusive list EKG interpreted by me (3pts min.). @ -None done X-rays interpreted by me (1pt min.). @ -See above CT interpreted by me (1pt min.). @ -None done U/S interpreted by me (1pt. min.). @ -None done What testing was considered but not performed or refused? (CT, X-rays, U/S, labs)? Why? @ -Repeat CT was considered however patient has benign abdomen and CT was done just 2 days ago. What meds were considered but not given or refused? Why? @ -See above Did you discuss the management of the patient with other professionals (professionals i.e. ALVIN Pena, MANAGER LINE, lab, RT, psych nurse, manager social media, horse race timer, teacher, maritime officer, case sealer)? Give summary @ -No Was smoking cessation discussed for >3mins.? @ -No Was critical care preformed (if so, how long)? @ -No Were there social determinants of health that impacted care today? How? (Homelessness, low income, unemployed, alcoholism, drug addiction, transportation, low edu. Level, literacy, decrease access to med. care, [facility], rehab)? @ -Social situation Was there de-escalation of care discussed even if they declined (Discuss DNR or withdrawal of care, Hospice)? DNR status @ -No What co-morbidities impacted this encounter? (DM, HTN, Smoking, COPD, CAD, Cancer, CVA, ARF, Chemo, Hep., AIDS, mental health diagnosis, sleep apnea, morbid obesity)? @ -None Was patient admitted / discharged? Hospital course, mention meds given and [place], prescriptions, significant lab abnormalities, going to OR and other pertinent info. @ -See above Undiagnosed new problem with uncertain prognosis? @ -No Drug Therapy requiring intensive monitoring for toxicity (Heparin, Nitro, Insulin, Cardizem)? @ -No Were any procedures done? @ -No Diagnosis/symptom? @ -Abdominal pain Acute, or Chronic, or Acute on Chronic? @ -Acute, persistent Uncomplicated (without systemic symptoms) or Complicated (systemic symptoms)? @ -Uncomplicated Side effects of treatment? @ -No Exacerbation, Progression, or Severe Exacerbation? @ -No Poses a threat to life or bodily function? How? (Chest pain, [place], [place], pneumonia, PE, COPD, DKA, ARF, appy, cholecystitis, CVA, Diverticulitis, Homicidal, Suicidal, threat to staff... and all critical care pts) @ -No - Related Data Home Medications Medication Instructions Recorded Confirmed Ibuprofen [Motrin] 600 mg PO Q8H PRN 05/04/22 05/06/22 Ondansetron Odt [Zofran Odt] 4 mg PO Q8H PRN 05/06/22 05/06/22 Previous Rx's Medication Instructions Recorded Dicyclomine [Bentyl] 20 mg PO TID PRN #30 tablet 05/04/22 Allergies Allergy/AdvReac Type Severity Reaction Status Date / Time adhesive tape Allergy Rash/Hives Verified 05/06/22 13:26 codeine Allergy Rash/Hives Verified 05/06/22 13:26 hydrochlorothiazide Allergy Rash/Hives Verified 05/06/22 13:26 hydrocodone [From Lortab] Allergy Rash/Hives Verified 05/06/22 13:26 latex Allergy Rash/Hives Verified 05/06/22 13:26 propranolol [From Inderal LA] Allergy Rash/Hives Verified 05/06/22 13:26 Review of Systems ROS Statement: Those systems with pertinent positive or pertinent negative responses have been documented in the HPI. ROS Other: All systems not noted in ROS Statement are negative. Past Medical History Past Medical History: Hypertension Additional Past Medical History / Comment(s): ON ANTIBIOTICS FOR RECENT SINUS INFECTION DR. KAPOOR AWARE History of Any Multi-Drug Resistant Organisms: None Reported Past Surgical History: Cholecystectomy, Tubal Ligation Past Anesthesia/Blood Transfusion Reactions: No Reported Reaction Past Psychological History: No Psychological Hx Reported Smoking Status: Never smoker Past Alcohol Use History: None Reported Past Drug Use History: None Reported - Past Family History Father Family Medical History: Cancer, Deep Vein Thrombosis (DVT) Mother Family Medical History: Deep Vein Thrombosis (DVT), Hypertension Course Vital Signs 05/06/22 05/06/22 11:18 13:20 Temperature 97.7 F Pulse Rate 74 78 Respiratory 16 18 Rate Blood Pressure 147/92 126/87 O2 Sat by Pulse 99 98 Oximetry Medical Decision Making - Lab Data Result diagrams: 05/06/22 13:06 05/06/22 13:06 Lab Results 05/06/22 05/06/22 05/06/22 Range/Units 13:06 13:06 13:06 WBC 5.8 (3.8-10.6) k/uL RBC 3.93 (3.80-5.40) m/uL Hgb 12.4 (11.4-16.0) gm/dL Hct 35.6 (34.0-46.0) % MCV 90.5 (80.0-100.0) fL MCH 31.5 (25.0-35.0) pg MCHC 34.8 (31.0-37.0) g/dL RDW 12.8 (11.5-15.5) % Plt Count 260 (150-450) k/uL MPV 7.5 Neutrophils % 62 % Lymphocytes % 29 % Monocytes % 4 % Eosinophils % 2 % Basophils % 1 % Neutrophils # 3.6 (1.3-7.7) k/uL Lymphocytes # 1.7 (1.0-4.8) k/uL Monocytes # 0.3 (0-1.0) k/uL Eosinophils # 0.1 (0-0.7) k/uL Basophils # 0.0 (0-0.2) k/uL Sodium (137-145) mmol/L Potassium (3.5-5.1) mmol/L Chloride (98-107) mmol/L Carbon Dioxide (22-30) mmol/L Anion Gap mmol/L BUN (7-17) mg/dL Creatinine (0.52-1.04) mg/dL Est GFR (CKD-EPI)AfAm (>60 ml/min/1.73 sqM) Est GFR (CKD-EPI)NonAf (>60 ml/min/1.73 sqM) Glucose (74-99) mg/dL Calcium (8.4-10.2) mg/dL Total Bilirubin (0.2-1.3) mg/dL AST (14-36) U/L ALT (4-34) U/L Alkaline Phosphatase (38-126) U/L Total Protein (6.3-8.2) g/dL Albumin (3.5-5.0) g/dL Urine Color Yellow Urine Appearance Cloudy H (Clear) Urine pH 6.0 (5.0-8.0) Ur Specific [place]ons 1.035 (1.001-1.035) Urine Protein 1+ H (Negative) Urine Glucose (UA) Negative (Negative) Urine Ketones 4+ H (Negative) Urine Blood Trace H (Negative) Urine Nitrite Negative (Negative) Urine Bilirubin Negative (Negative) Urine Urobilinogen 3.0 (<2.0) mg/dL Ur Leukocyte Esterase Trace H (Negative) Urine RBC 4 (0-5) /hpf Urine WBC 4 (0-5) /hpf Ur Squamous Epith Cells 12 H (0-4) /hpf Amorphous Sediment Rare H (None) /hpf Urine Bacteria Rare H (None) /hpf Urine Mucus Moderate H (None) /hpf Urine HCG, Qual Not Detected (Not Detectd) 05/06/22 Range/Units 13:06 WBC (3.8-10.6) k/uL RBC (3.80-5.40) m/uL Hgb (11.4-16.0) gm/dL Hct (34.0-46.0) % MCV (80.0-100.0) fL MCH (25.0-35.0) pg MCHC (31.0-37.0) g/dL RDW (11.5-15.5) % Plt Count (150-450) k/uL MPV Neutrophils % % Lymphocytes % % Monocytes % % Eosinophils % % Basophils % % Neutrophils # (1.3-7.7) k/uL Lymphocytes # (1.0-4.8) k/uL Monocytes # (0-1.0) k/uL Eosinophils # (0-0.7) k/uL Basophils # (0-0.2) k/uL Sodium 137 (137-145) mmol/L Potassium 3.8 (3.5-5.1) mmol/L Chloride 103 (98-107) mmol/L Carbon Dioxide 28 (22-30) mmol/L Anion Gap 6 mmol/L BUN 14 (7-17) mg/dL Creatinine 0.70 (0.52-1.04) mg/dL Est GFR (CKD-EPI)AfAm >90 (>60 ml/min/1.73 sqM) Est GFR (CKD-EPI)NonAf >90 (>60 ml/min/1.73 sqM) Glucose 82 (74-99) mg/dL Calcium 8.4 (8.4-10.2) mg/dL Total Bilirubin 1.0 (0.2-1.3) mg/dL AST 24 (14-36) U/L ALT 23 (4-34) U/L Alkaline Phosphatase 60 (38-126) U/L Total Protein 7.0 (6.3-8.2) g/dL Albumin 4.2 (3.5-5.0) g/dL Urine Color Urine Appearance (Clear) Urine pH (5.0-8.0) Ur Specific [place] (1.001-1.035) Urine Protein (Negative) Urine Glucose (UA) (Negative) Urine Ketones (Negative) Urine Blood (Negative) Urine Nitrite (Negative) Urine Bilirubin (Negative) Urine Urobilinogen (<2.0) mg/dL Ur Leukocyte Esterase (Negative) Urine RBC (0-5) /hpf Urine WBC (0-5) /hpf Ur Squamous Epith Cells (0-4) /hpf Amorphous Sediment (None) /hpf Urine Bacteria (None) /hpf Urine Mucus (None) /hpf Urine HCG, Qual (Not Detectd) Disposition Clinical Impression: Abdominal pain Disposition: HOME SELF-CARE Condition: Good Instructions (If sedation given, give patient instructions): Abdominal Pain (ED) Is patient prescribed a controlled substance at d/c from ED?: No Referrals: Hong Buenrostro MD [Primary Care Provider] - 1-2 days Time of Disposition: 14:09
[2022-05-06 13:16] LABS: Basophils % (A) 1 %; Eosinophils # (A) 0.1 k/uL (0-0.7); Eosinophils % (A) 2 %; HCT 35.6 % (34.0-46.0); HGB 12.4 gm/dL (11.4-16.0); Lymphocytes # (A) 1.7 k/uL (1.0-4.8); Lymphocytes % (A) 29 %; MCH 31.5 pg (25.0-35.0); MCHC 34.8 g/dL (31.0-37.0); MCV 90.5 fL (80.0-100.0); Mean Platelet Volume 7.5; Monocytes # (A) 0.3 k/uL (0-1.0); Monocytes % (A) 4 %; Neutrophils # (A) 3.6 k/uL (1.3-7.7); Neutrophils % (A) 62 %; Platelet Count 260 k/uL (150-450); RBC 3.93 m/uL (3.80-5.40); RDW 12.8 % (11.5-15.5); WBC 5.8 k/uL (3.8-10.6)
[2022-05-06 13:30] VITALS: RESP 18
[2022-05-06 13:33] LABS: ALT 23 U/L (4-34); AST 24 U/L (14-36); African American GFR (CKD) >90 (>60 ml/min/1.73 sqM); Albumin 4.2 g/dL (3.5-5.0); Alkaline Phosphatase 60 U/L (38-126); Anion Gap 6 mmol/L; Blood Urea Nitrogen 14 mg/dL (7-17); Calcium 8.4 mg/dL (8.4-10.2); Carbon Dioxide 28 mmol/L (22-30); Chloride 103 mmol/L (98-107); Glucose 82 mg/dL (74-99); Non-African American GFR(CKD) >90 (>60 ml/min/1.73 sqM); Potassium 3.8 mmol/L (3.5-5.1); Sodium 137 mmol/L (137-145)
[2022-05-06 13:45] LABS: Amorphous Sediment,Urine Rare /hpf; Appearance,Urine Cloudy (Clear); Bacteria,Urine Rare /hpf; Bilirubin,Urine Negative (Negative); Blood,Urine Trace (Negative); Color,Urine Yellow; Glucose,Urine (UA) Negative (Negative); Ketones,Urine 4+ (Negative); Leukocyte Esterase,Urine Trace (Negative); Mucus,Urine Moderate /hpf; Nitrite,Urine Negative (Negative); Protein,Urine 1+ (Negative); RBC,Urine 4 /hpf (0-5); Specific Gravity,Urine 1.035 (1.001-1.035); Squamous Epithelial Cell,Urine 12 /hpf (0-4); WBC,Urine 4 /hpf (0-5)
--- NOTE | 2022-05-06 13:48 | XR ---
EXAMINATION TYPE: XR abdomen 1V DATE OF EXAM: 05/06/2022 COMPARISON: CT abdomen and pelvis 05/04/2022, bone radiograph 12/10/2021 HISTORY: Abdominal pain TECHNIQUE: Upright view of the abdomen was obtained with 2 radiographs. FINDINGS: Small bowel demonstrates no evidence for dilatation or air fluid levels. Gas and fecal material is seen in non-distended colon. No convincing evidence for pneumoperitoneum. No unusual calcifications. Cholecystectomy clips in right upper quadrant. The lung bases are clear. The osseous structures are intact. IMPRESSION: Overall nonobstructive bowel gas pattern.
[2022-05-06 14:18] VITALS: BP 132/70; PULSE 82
== END 2022-05-06 14:18 | disposition home or self-care (01) ==
LOC: EC 11:11
DX: K57.90 Diverticulosis of intestine, part unspecified, without perforation or abscess without bleeding (principal); K85.90 Acute pancreatitis without necrosis or infection, unspecified; N76.2 Acute vulvitis; I10 Essential (primary) hypertension; Z88.5 Allergy status to narcotic agent; Z91.040 Latex allergy status; Z88.2 Allergy status to sulfonamides; Z88.8 Allergy status to other drugs, medicaments and biological substances; Z91.048 Other nonmedicinal substance allergy status; Z90.49 Acquired absence of other specified parts of digestive tract
CPT/HCPCS: 36415; 74018; 80053; 81001; 81025; 85025; 99284

== ENCOUNTER 2024-02-22 19:12 | Emergency (ER) | payer OTHER ==
[2024-02-22 19:19] VITALS: TEMP 97.5
--- NOTE | 2024-02-22 19:40 | ED ---
General Adult HPI - General Chief complaint: Skin/Abscess/Foreign Body Stated complaint: Fall-R ankle injury Time Seen by Provider: 02/22/24 19:13 Source: patient, RN notes reviewed Mode of arrival: wheelchair Limitations: no limitations - History of Present Illness Initial comments: 33-year-old female presents emergency department complaint of right ankle injury. Patient states she was getting out of her tub in which the undercurrent renovation states that there was homemade stepstool and states that it slipped causing her to fall onto a board with a screw sticking out. She states she twisted her ankle and states the screw went in the lateral portion of her right ankle. Patient states her tetanus is up-to-date 2 years ago. She denies any head injury no loss conscious. - Related Data Home Medications Medication Instructions Recorded Confirmed Ibuprofen [Motrin] 600 mg PO Q8H PRN 05/04/22 05/06/22 Ondansetron Odt [Zofran Odt] 4 mg PO Q8H PRN 05/06/22 05/06/22 Previous Rx's Medication Instructions Recorded Dicyclomine [Bentyl] 20 mg PO TID PRN #30 tablet 05/04/22 Cephalexin [Keflex] 500 mg PO Q6HR #40 cap 02/22/24 Ibuprofen [Motrin] 600 mg PO Q8HR PRN #20 tab 02/22/24 Allergies Allergy/AdvReac Type Severity Reaction Status Date / Time adhesive tape Allergy Rash/Hives Verified 02/22/24 19:19 codeine Allergy Rash/Hives Verified 02/22/24 19:19 hydrochlorothiazide Allergy Rash/Hives Verified 02/22/24 19:19 hydrocodone [From Lortab] Allergy Rash/Hives Verified 02/22/24 19:19 latex Allergy Rash/Hives Verified 02/22/24 19:19 propranolol [From Inderal LA] Allergy Rash/Hives Verified 02/22/24 19:19 Review of Systems ROS Statement: Those systems with pertinent positive or pertinent negative responses have been documented in the HPI. ROS Other: All systems not noted in ROS Statement are negative. Past Medical History Past Medical History: Hypertension Additional Past Medical History / Comment(s): ON ANTIBIOTICS FOR RECENT SINUS INFECTION DR. KAPOOR AWARE History of Any Multi-Drug Resistant Organisms: None Reported Past Surgical History: Cholecystectomy, Tubal Ligation Past Anesthesia/Blood Transfusion Reactions: No Reported Reaction Past Psychological History: No Psychological Hx Reported Smoking Status: Never smoker Past Alcohol Use History: None Reported Past Drug Use History: None Reported - Past Family History Father Family Medical History: Cancer, Deep Vein Thrombosis (DVT) Mother Family Medical History: Deep Vein Thrombosis (DVT), Hypertension General Exam Limitations: no limitations General appearance: alert, in no apparent distress Eye exam: Present: normal appearance, PERRL, EOMI. Absent: scleral icterus, conjunctival injection, periorbital swelling ENT exam: Present: normal exam, mucous membranes moist Respiratory exam: Present: normal lung sounds bilaterally. Absent: respiratory distress, wheezes, rales, rhonchi, stridor Cardiovascular Exam: Present: regular rate, normal rhythm, normal heart sounds. Absent: systolic murmur, diastolic murmur, rubs, gallop, clicks Extremities exam: Present: other (Right ankle there is tenderness over the lateral malleoli region there is small area of dried blood, small puncture wound noted neurovascular intact no proximal tib-fib tenderness no distal foot tenderness) Neurological exam: Present: alert, oriented X3, CN II-XII intact, reflexes normal. Absent: motor sensory deficit Course Vital Signs 02/22/24 02/22/24 19:17 20:13 Temperature 97.5 F L Pulse Rate 92 77 Respiratory 18 20 Rate Blood Pressure 151/100 139/90 O2 Sat by Pulse 100 99 Oximetry Medical Decision Making - Medical Decision Making Was pt. sent in by a medical professional or institution (, PA, EXTRACTOR TENDER [employer], urgent care, hospital, or residential...) When possible be specific @ -No Did you speak to anyone other than the patient for history (EMS, parent, family, police, friend...)? What history was obtained from this source @ -No Did you review nursing and triage notes (agree or disagree)? Why? @ -I reviewed and agree with nursing and triage notes Were old charts reviewed (outside hosp., previous admission, EMS record, old EKG, old radiological studies, urgent care reports/EKG's, residential records)? Report findings @ -No old charts were reviewed Differential Diagnosis (chest pain, altered mental status, abdominal pain women, abdominal pain men, vaginal bleeding, weakness, fever, dyspnea, syncope, headache, dizziness, GI bleed, back pain, seizure, CVA, palpatations, mental health, musculoskeletal)? @) Ankle sprain, Ankle fracture, puncture wound, foreign body EKG interpreted by me (3pts min.). @ -None none X-rays interpreted by me (1pt min.). @ -X-ray right ankle shows no acute fracture CT interpreted by me (1pt min.). @ -None done U/S interpreted by me (1pt. min.). @ -None done What testing was considered but not performed or refused? (CT, X-rays, U/S, labs)? Why? @ -None What meds were considered but not given or refused? Why? @ -None Did you discuss the management of the patient with other professionals (professionals i.e. , PA, EXTRACTOR TENDER [employer], lab, RT, psych nurse, social security assessor, tool dresser, teacher, unarmed security officer, high risk case manager)? Give summary @ -No Was smoking cessation discussed for >3mins.? @ -No Was critical care preformed (if so, how long)? @ -No Were there social determinants of health that impacted care today? How? (Homelessness, low income, unemployed, alcoholism, drug addiction, transportation, low edu. Level, literacy, decrease access to med. care, nursing home, rehab)? @ -No Was there de-escalation of care discussed even if they declined (Discuss DNR or withdrawal of care, Hospice)? DNR status @ -No What co-morbidities impacted this encounter? (DM, HTN, Smoking, COPD, CAD, Cancer, CVA, ARF, Chemo, Hep., AIDS, mental health diagnosis, sleep apnea, morbid obesity)? @ -None Was patient admitted / discharged? Hospital course, mention meds given and route, prescriptions, significant lab abnormalities, going to OR and other pertinent info. @ -Discharge patient presented for right ankle injury, puncture wound x-rays are negative for acute foreign body or acute fracture tetanus up-to-date patient placed on antibiotics given puncture wound return parameters discussed. Undiagnosed new problem with uncertain prognosis? @ -No Drug Therapy requiring intensive monitoring for toxicity (Heparin, Nitro, Insulin, Cardizem)? @ -No Were any procedures done? @ -No Diagnosis/symptom? @ -Puncture wound, right ankle sprain Acute, or Chronic, or Acute on Chronic? @ -Acute Uncomplicated (without systemic symptoms) or Complicated (systemic symptoms)? @ -Uncomplicated Side effects of treatment? @ -No Exacerbation, Progression, or Severe Exacerbation? @ -No Poses a threat to life or bodily function? How? (Chest pain, [place], [place], pneumonia, PE, COPD, DKA, ARF, appy, cholecystitis, CVA, Diverticulitis, Homicidal, Suicidal, threat to staff... and all critical care pts) @ -No Disposition Clinical Impression: Right ankle sprain, Puncture wound Disposition: HOME SELF-CARE Condition: Stable Instructions (If sedation given, give patient instructions): Ankle Sprain (ED) Additional Instructions: Please return to the Emergency Department if symptoms worsen or any other concerns. Prescriptions: Cephalexin [Keflex] 500 mg PO Q6HR #40 cap Ibuprofen [Motrin] 600 mg PO Q8HR PRN #20 tab PRN Reason: Pain Is patient prescribed a controlled substance at d/c from ED?: No Referrals: Hong Buenrostro MD [Primary Care Provider] - 1-2 days Time of Disposition: 19:56
--- NOTE | 2024-02-22 19:46 | XR ---
EXAMINATION TYPE: XR ankle complete RT DATE OF EXAM: 02/22/2024 7:38 PM COMPARISON: None CLINICAL INDICATION: Female, 33 years old with history of pain; TECHNIQUE: XR ankle complete RT; ankle is imaged in frontal, lateral and oblique projections. FINDINGS: There is no evidence of acute osseous pathology. No evidence of subluxation or dislocation. Kager's fat pad is intact. Soft tissues are within normal limits. No radiopaque foreign bodies are identified . IMPRESSION: No evidence of acute fracture. [facility], , 02/22/2024 7:43 PM
[2024-02-22] MEDS: traMADol 50 MG STARTER PACK 3 TAB BTL PO STA (20:05)
[2024-02-22] MEDS: traMADol 50 MG TAB PO STA (20:06)
[2024-02-22] MEDS: IBUPROFEN 600 MG TAB PO STA (20:07)
[2024-02-22] MEDS: CEPHALEXIN 500 MG CAP PO STA (20:07)
[2024-02-22 20:15] VITALS: BP 139/90; PULSE 77; RESP 20
== END 2024-02-22 20:15 | disposition home or self-care (01) ==
LOC: EC 19:12
DX: S93.401A Sprain of unspecified ligament of right ankle, initial encounter (principal); Z88.5 Allergy status to narcotic agent; Z91.040 Latex allergy status; Z88.8 Allergy status to other drugs, medicaments and biological substances; W01.0XXA Fall on same level from slipping, tripping and stumbling without subsequent striking against object, initial encounter
CPT/HCPCS: 99283

== ENCOUNTER 2024-10-13 12:14 | Emergency (ER) | payer OTHER ==
[2024-10-13 12:23] VITALS: TEMP 98.1
--- NOTE | 2024-10-13 12:38 | ED ---
Female Urogenital HPI - General Chief complaint: Vaginal Bleeding Stated complaint: Vaginal bleeding Time Seen by Provider: 10/13/24 12:24 Source: patient, RN notes reviewed Mode of arrival: ambulatory Limitations: no limitations - History of Present Illness Initial comments: This is a 33-year-old female who presents to the emergency department for pelvic pain and vaginal bleeding. States that she woke up this morning with pain in the right lower pelvis that radiated to her back. When she went to stand up states that a large amount of blood came out. States that she also passed a large clot and continues to have bleeding. The pain has also persisted. Over the last 4 days she has also been dealing with intermittent right-sided pelvic pain going into her back. Prior to these last few days she denies any history of similar symptoms in the past. She does have a history of kidney stones but states that it feels different. Also has a history of a tubal ligation and states that her periods are regular every month and she thought she had just finished her period a couple of days ago. She has associated nausea and vomiting. Denies any fevers or chills. MD Complaint: vaginal bleeding, pelvic pain Last Menstrual Period: 10/06/24 - Related Data Home Medications Medication Instructions Recorded Confirmed Ibuprofen [Motrin] 600 mg PO Q8H PRN 05/04/22 05/06/22 Ondansetron Odt [Zofran Odt] 4 mg PO Q8H PRN 05/06/22 05/06/22 Previous Rx's Medication Instructions Recorded Dicyclomine [Bentyl] 20 mg PO TID PRN #30 tablet 05/04/22 Cephalexin [Keflex] 500 mg PO Q6HR #40 cap 02/22/24 Ibuprofen [Motrin] 600 mg PO Q8HR PRN #20 tab 02/22/24 Cefpodoxime Proxetil [Vantin] 200 mg PO Q12HR 10 Days #20 tab 10/13/24 Ketorolac [Toradol] 10 mg PO Q6HR PRN #15 tab 10/13/24 Ondansetron Odt [Zofran Odt] 4 mg PO Q8HR PRN #15 tab 10/13/24 traMADol HCl [Ultram] 50 mg PO Q6HR PRN 3 Days #12 tab 10/13/24 Allergies Allergy/AdvReac Type Severity Reaction Status Date / Time adhesive tape Allergy Rash/Hives Verified 10/13/24 12:23 codeine Allergy Rash/Hives Verified 10/13/24 12:23 hydrochlorothiazide Allergy Rash/Hives Verified 10/13/24 12:23 hydrocodone [From Lortab] Allergy Rash/Hives Verified 10/13/24 12:23 latex Allergy Rash/Hives Verified 10/13/24 12:23 propranolol [From Inderal LA] Allergy Rash/Hives Verified 10/13/24 12:23 Review of Systems ROS Statement: Those systems with pertinent positive or pertinent negative responses have been documented in the HPI. ROS Other: All systems not noted in ROS Statement are negative. Past Medical History Past Medical History: Hypertension Additional Past Medical History / Comment(s): ON ANTIBIOTICS FOR RECENT SINUS INFECTION DR. KAPOOR AWARE History of Any Multi-Drug Resistant Organisms: None Reported Past Surgical History: Cholecystectomy, Tubal Ligation Past Anesthesia/Blood Transfusion Reactions: No Reported Reaction Past Psychological History: No Psychological Hx Reported Smoking Status: Never smoker Past Alcohol Use History: None Reported Past Drug Use History: None Reported - Past Family History Father Family Medical History: Cancer, Deep Vein Thrombosis (DVT) Mother Family Medical History: Deep Vein Thrombosis (DVT), Hypertension General Exam Limitations: no limitations General appearance: alert, in no apparent distress Head exam: Present: atraumatic, normocephalic, normal inspection Respiratory exam: Present: normal lung sounds bilaterally. Absent: respiratory distress, wheezes, rales, rhonchi, stridor Cardiovascular Exam: Present: regular rate, normal rhythm GI/Abdominal exam: Present: soft, tenderness (RLQ). Absent: distended Back exam: Present: CVA tenderness (R) Neurological exam: Present: alert, oriented X3, CN II-XII intact Psychiatric exam: Present: normal affect, normal mood Skin exam: Present: warm, dry, intact, normal color. Absent: rash Course Vital Signs 10/13/24 10/13/24 10/13/24 12:15 12:51 13:56 Temperature 98.1 F Pulse Rate 101 H 90 76 Respiratory 18 18 20 Rate Blood Pressure 149/103 145/102 150/98 O2 Sat by Pulse 100 99 96 Oximetry 10/13/24 15:58 Temperature Pulse Rate 65 Respiratory 20 Rate Blood Pressure 130/68 O2 Sat by Pulse 98 Oximetry Medical Decision Making - Medical Decision Making This is a 33-year-old female who presents to the emergency department for pelvic pain and vaginal bleeding. Was pt. sent in by a medical professional or institution? @ -No Did you speak to anyone other than the patient for history? @ -No Did you review nursing and triage notes? @ -Yes, and I agree, it is accurate with regards to the patient's symptoms. Were old charts reviewed? @ -No Differential Diagnosis? @ -Differential Vaginal Bleeding: Spontaneous , threatened , molar , ectopic , incompetent cervix, placenta previa, uterine rupture, dysfunctional uterine bleeding, hemorrhage, uterine fibroids, malignancy, coagulopathy, PID, cervicitis, adenomyosis, vaginal trauma, this is not meant to be an all- inclusive list. EKG interpreted by me (3pts min.)? @ -Not obtained X-rays interpreted by me (1pt min.)? @ -Not obtained CT interpreted by me (1pt min.)? @ -CT scan of the abdomen and pelvis obtained. My interpretation identifies no bowel wall thickening or free air. U/S interpreted by me (1pt. min.)? @ -Transvaginal ultrasound obtained. My interpretation identifies no ovarian torsion. Renal ultrasound obtained. My interpretation identifies no hydronephr osis. What testing was considered but not performed? (CT, X-rays, U/S, labs)? Why? @ -None What meds were considered but not given? Why? @ -None Did you discuss the management of the patient with other professionals? @ -No Did you reconcile home meds? @ -No Was smoking cessation discussed for >3mins.? @ -No Was critical care preformed (if so, how long)? @ -No Were there social determinants of health that impacted care today? How? (Homelessness, low income, unemployed, alcoholism, drug addiction, transportation, low edu. Level, literacy, decrease access to med. care, half-way, rehab)? @ -No Was there de-escalation of care discussed even if they declined? (Discuss DNR or withdrawal of care, Hospice)? @ -No What co-morbidities impacted this encounter? (DM, HTN, Smoking, COPD, CAD, Cancer, CVA, Hep., AIDS, mental health diagnosis, sleep apnea, morbid obesity)? @ -None Was patient admitted / discharged? @ -Discharged. Lab work demonstrates leukocytosis with a white blood cell count of 14.24 and is otherwise unremarkable. Urinalysis contains a large amount of blood and RBCs. Transvaginal ultrasound demonstrates a complex left ovarian cyst possibly representing a hemorrhagic/involuting follicle. Otherwise no acute process was identified. Renal ultrasound demonstrates a dilated right renal pelvis with no evidence for hydronephrosis or obstructive uropathy. There is no clear cause for her symptoms at this point. Given the leukocytosis and severity of her pain, we proceeded with a CT scan of the abdomen and pelvis for further evaluation. CT scan of the abdomen and pelvis reveals no acute process. The appendix is normal. There is no obstructive uropathy or renal calculus. The left ovarian cyst is redemonstrated. She also has an anatomic variant duplex left renal collecting system. Findings reviewed with the patient. Her urine did appear infected, which we discussed may be the cause of her symptoms. She did also note that when she urinated she noticed a large amount of blood in the toilet and we discussed that her bleeding may be urinary as opposed to vaginal. Urine was sent for culture. 2 g of ceftriaxone administered. Prescription for cefpodoxime provided for further management of the infection. Toradol and Zofran prescribed for pain control. Advised follow-up with her PCP for reevaluation. Patient discharged home in stable condition. Case discussed with ED attending, Dr. Nevarez. Return precautions reviewed in depth, the patient is instructed to return to the emergency department with any new, worsening, or concerning symptoms. Patient verbalized understanding. Undiagnosed new problem with uncertain prognosis? @ -None Drug Therapy requiring intensive monitoring for toxicity (Heparin, Nitro, Insulin, Cardizem)? @ -None Were any procedures done? @ -None Diagnosis/symptom? @ -UTI, abdominal pain Acute, or Chronic, or Acute on Chronic? @ -Acute Uncomplicated (without systemic symptoms) or Complicated (systemic symptoms)? @ -Uncomplicated Side effects of treatment? @ -None Exacerbation, Progression, or Severe Exacerbation] @ -Not applicable Poses a threat to life or bodily function? @ -No - Lab Data Result diagrams: 10/13/24 12:50 10/13/24 12:50 Lab Results 10/13/24 10/13/24 10/13/24 Range/Units 12:50 12:50 12:50 WBC 14.24 H (4.50-10.00) 10*3/uL RBC 4.28 (4.10-5.20) 10*6/uL Hgb 13.6 (12.0-15.0) g/dL Hct 39.1 (37.2-46.3) % MCV 91.4 (80.0-97.0) fL MCH 31.8 (27.0-32.0) pg MCHC 34.8 (32.0-37.0) g/dL Plt Count 302 (140-440) 10*3/uL MPV 9.7 (9.5-12.2) fL Immature Gran % (Auto) 0.4 % Neutrophils % 76.3 % Lymphocytes % 17.3 % Monocytes % 4.8 % Eosinophils % 0.8 % Basophils % 0.4 % Immature Gran # 0.05 H (0.00-0.04) 10*3/uL Neutrophils # 10.86 H (1.80-7.70) 10*3/uL Lymphocytes # 2.47 (0.90-5.00) 10*3/uL Monocytes # 0.69 (0.20-1.00) 10*3/uL Eosinophils # 0.11 (0.04-0.35) 10*3/uL Basophils # 0.06 (0.00-0.10) 10*3/uL Sodium (137-145) mmol/L Potassium (3.5-5.1) mmol/L Chloride (98-107) mmol/L Carbon Dioxide (22-30) mmol/L Anion Gap mmol/L BUN (7-17) mg/dL Creatinine (0.52-1.04) mg/dL Est GFR (CKD-EPI)AfAm (>60 ml/min/1.73 sqM) Est GFR (CKD-EPI)NonAf (>60 ml/min/1.73 sqM) Glucose (74-99) mg/dL Plasma Lactic Acid Jaskaran (0.7-2.0) mmol/L Calcium (8.4-10.2) mg/dL Total Bilirubin (0.2-1.3) mg/dL AST (14-36) U/L ALT (4-34) U/L Alkaline Phosphatase (38-126) U/L Total Protein (6.3-8.2) g/dL Albumin (3.5-5.0) g/dL Urine Color Light Red Urine Appearance Turbid H (Clear) Urine pH 5.5 (5.0-8.0) Ur Specific [place] 1.023 (1.001-1.035) Urine Protein 1+ H (Negative) Urine Glucose (UA) Negative (Negative) Urine Ketones Negative (Negative) Urine Blood Large H (Negative) Urine Nitrite Negative (Negative) Urine Bilirubin Negative (Negative) Urine Urobilinogen <2.0 (<2.0) mg/dL Ur Leukocyte Esterase Large H (Negative) Urine RBC >182 H (0-5) /hpf Urine WBC >182 H (0-5) /hpf Ur Squamous Epith Cells 6 H (0-4) /hpf Urine Mucus Rare H (None) /hpf Urine HCG, Qual Not Detected (Not Detectd) 10/13/24 10/13/24 Range/Units 12:50 12:50 WBC (4.50-10.00) 10*3/uL RBC (4.10-5.20) 10*6/uL Hgb (12.0-15.0) g/dL Hct (37.2-46.3) % MCV (80.0-97.0) fL MCH (27.0-32.0) pg MCHC (32.0-37.0) g/dL Plt Count (140-440) 10*3/uL MPV (9.5-12.2) fL Immature Gran % (Auto) % Neutrophils % % Lymphocytes % % Monocytes % % Eosinophils % % Basophils % % Immature Gran # (0.00-0.04) 10*3/uL Neutrophils # (1.80-7.70) 10*3/uL Lymphocytes # (0.90-5.00) 10*3/uL Monocytes # (0.20-1.00) 10*3/uL Eosinophils # (0.04-0.35) 10*3/uL Basophils # (0.00-0.10) 10*3/uL Sodium 137 (137-145) mmol/L Potassium 4.1 (3.5-5.1) mmol/L Chloride 102 (98-107) mmol/L Carbon Dioxide 21 L (22-30) mmol/L Anion Gap 14 mmol/L BUN 8 (7-17) mg/dL Creatinine 0.67 (0.52-1.04) mg/dL Est GFR (CKD-EPI)AfAm >90 (>60 ml/min/1.73 sqM) Est GFR (CKD-EPI)NonAf >90 (>60 ml/min/1.73 sqM) Glucose 89 (74-99) mg/dL Plasma Lactic Acid Jaskaran 1.3 (0.7-2.0) mmol/L Calcium 9.6 (8.4-10.2) mg/dL Total Bilirubin 0.9 (0.2-1.3) mg/dL AST 22 (14-36) U/L ALT 19 (4-34) U/L Alkaline Phosphatase 80 (38-126) U/L Total Protein 7.5 (6.3-8.2) g/dL Albumin 4.7 (3.5-5.0) g/dL Urine Color Urine Appearance (Clear) Urine pH (5.0-8.0) Ur Specific [place] (1.001-1.035) Urine Protein (Negative) Urine Glucose (UA) (Negative) Urine Ketones (Negative) Urine Blood (Negative) Urine Nitrite (Negative) Urine Bilirubin (Negative) Urine Urobilinogen (<2.0) mg/dL Ur Leukocyte Esterase (Negative) Urine RBC (0-5) /hpf Urine WBC (0-5) /hpf Ur Squamous Epith Cells (0-4) /hpf Urine Mucus (None) /hpf Urine HCG, Qual (Not Detectd) - Radiology Data Radiology results: report reviewed, image reviewed Disposition Clinical Impression: UTI (urinary tract infection), Abdominal pain Disposition: HOME SELF-CARE Instructions (If sedation given, give patient instructions): Urinary Tract Infe ction in Women (ED), Abdominal Pain (ED) Additional Instructions: Return to the emergency department with any new, worsening, or concerning symptoms. Take the antibiotic as prescribed for 10 days. Take the Toradol with Tylenol as needed for pain relief. If you choose to take the Toradol, do not take any other anti-inflammatories such as ibuprofen, take one or the other. Take the tramadol sparingly when your pain is the most severe. Take the Zofran up to every 8 hours as needed for nausea and vomiting. Follow up with your primary care provider in 1-2 days. Prescriptions: Ketorolac [Toradol] 10 mg PO Q6HR PRN #15 tab PRN Reason: Pain traMADol HCl [Ultram] 50 mg PO Q6HR PRN 3 Days #12 tab PRN Reason: Pain Cefpodoxime Proxetil [Vantin] 200 mg PO Q12HR 10 Days #20 tab Ondansetron Odt [Zofran Odt] 4 mg PO Q8HR PRN #15 tab PRN Reason: Nausea And Vomiting Is patient prescribed a controlled substance at d/c from ED?: Yes When asked, does pt state using other controlled substances?: No If prescribed controlled substance>3 days was MAPS reviewed?: Prescribed <3 Days Referrals: Hong Buenrostro MD [Primary Care Provider] - 1-2 days Time of Disposition: 15:24
[2024-10-13] MEDS: SODIUM CHLORIDE 0.9% 1,000 ML IV ONE (12:53)
[2024-10-13] MEDS: ONDANSETRON 4 MG/2 ML VIAL IVP STA (12:54)
[2024-10-13] MEDS: MORPHINE SULFATE 4 MG/ML SYRINGE IVP STA (12:54)
[2024-10-13] MEDS: KETOROLAC 15 MG/ML 1 ML VIAL IVP STA (12:54)
[2024-10-13 13:09] LABS: Basophils # (A) 0.06 10*3/uL (0.00-0.10); Basophils % (A) 0.4 %; Eosinophils # (A) 0.11 10*3/uL (0.04-0.35); Eosinophils % (A) 0.8 %; HCT 39.1 % (37.2-46.3); HGB 13.6 g/dL (12.0-15.0); Lymphocytes # (A) 2.47 10*3/uL (0.90-5.00); Lymphocytes % (A) 17.3 %; MCH 31.8 pg (27.0-32.0); MCHC 34.8 g/dL (32.0-37.0); MCV 91.4 fL (80.0-97.0); Monocytes # (A) 0.69 10*3/uL (0.20-1.00); Monocytes % (A) 4.8 %; Neutrophils # (A) 10.86 10*3/uL (1.80-7.70); Neutrophils % (A) 76.3 %; Platelet Count 302 10*3/uL (140-440); RBC 4.28 10*6/uL (4.10-5.20); RDW 12.8 % (11.5-14.5); WBC 14.24 10*3/uL (4.50-10.00)
[2024-10-13 13:21] LABS: Bilirubin,Urine Negative (Negative); Blood,Urine Large (Negative); Color,Urine Light Red; Glucose,Urine (UA) Negative (Negative); Ketones,Urine Negative (Negative); Leukocyte Esterase,Urine Large (Negative); Mucus,Urine Rare /hpf; Nitrite,Urine Negative (Negative); PH, Urine 5.5 (5.0-8.0); Protein,Urine 1+ (Negative); RBC,Urine >182 /hpf (0-5); Specific Gravity,Urine 1.023 (1.001-1.035); Squamous Epithelial Cell,Urine 6 /hpf (0-4); Urobilinogen,Urine <2.0 mg/dL (<2.0); WBC,Urine >182 /hpf (0-5)
[2024-10-13 13:26] LABS: ALT 19 U/L (4-34); AST 22 U/L (14-36); African American GFR (CKD) >90 (>60 ml/min/1.73 sqM); Albumin 4.7 g/dL (3.5-5.0); Alkaline Phosphatase 80 U/L (38-126); Anion Gap 14 mmol/L; Blood Urea Nitrogen 8 mg/dL (7-17); Calcium 9.6 mg/dL (8.4-10.2); Carbon Dioxide 21 mmol/L (22-30); Chloride 102 mmol/L (98-107); Glucose 89 mg/dL (74-99); Non-African American GFR(CKD) >90 (>60 ml/min/1.73 sqM); Potassium 4.1 mmol/L (3.5-5.1); Sodium 137 mmol/L (137-145); Total Protein 7.5 g/dL (6.3-8.2)
[2024-10-13 13:57] VITALS: RESP 20
--- NOTE | 2024-10-13 14:11 | US ---
EXAMINATION TYPE: US renals and bladder DATE OF EXAM: 10/13/2024 COMPARISON: 05/04/2022. CLINICAL INDICATION: Female, 33 years old with history of Right flank pain; Right side pain. TECHNIQUE: Grayscale imaging of the bilateral kidneys and urinary bladder: FINDINGS: EXAM MEASUREMENTS: Right Kidney: 10.5 x 4.6 x 4.7 cm Left Kidney: 12.5 x 5.1 x 5.8 cm Right Kidney: Dilated renal pelvis Left Kidney: No hydronephrosis or masses seen, prominent superior cortical irregularity which is fat density as seen on prior CT 05/01/2022 suggestive of angiomyolipoma measuring up to 22 mm. Bladder: distended Bilateral Jets seen There is no evidence for hydronephrosis at this point in time. No nephrolithiasis is seen. No amanda s are identified. The urinary bladder is anechoic. IMPRESSION: 1. Dilated right renal pelvis no evidence for hydronephrosis or obstructive uropathy. 2. Left renal cortical abnormality similar to prior CT 05/04/2022 possibly representing angiomyolipom a. [facility], , 10/13/2024 2:08 PM
--- NOTE | 2024-10-13 14:16 | US ---
EXAMINATION TYPE: US pelvic complete DATE OF EXAM: 10/13/2024 COMPARISON: 05/04/2022 CLINICAL INDICATION: Female, 33 years old with history of Right sided pelvic pain; Right side pain, b leeding started this morning, tubal ligation TECHNIQUE: Transabdominal (TA). Transabdominal grayscale sonographic images of the pelvis were acquired. Doppler imaging: Color Doppler Images were obtained. Spectral doppler images were obtained. FINDINGS: Date of LMP: 10/02/2024, EXAM MEASUREMENTS: Uterus: 8.9 x 5.5 x 4.3 cm Endometrial Stripe: 0.7 cm Right Ovary: 3.2 x 1.9 x 1.7 cm Left Ovary: 4.5 x 3.1 x 3.4 cm 1. Uterus: Anteverted wnl 2. Endometrium: wnl 3. Right Ovary: follicles 4. Left Ovary: cystic lesion with internal echoes = 3.1 x 2.9 x 3.3 cm Spectral, color and waveform doppler imaging shows good arterial and venous flow within the ovaries ; there is no evidence for ovarian torsion. 5. Bilateral Adnexa: no free fluid 6. Posterior cul-de-sac: no free fluid IMPRESSION: 1. No evidence for acute process. 2. Endometrium within normal limits for thickness. 3. Left ovarian complex cyst with internal echoes possibly hemorrhagic/involuting follicle. [facility], , 10/13/2024 2:14 PM
--- NOTE | 2024-10-13 15:11 | CT ---
EXAMINATION TYPE: CT abdomen pelvis w con DATE OF EXAM: 10/13/2024 2:39 PM COMPARISON: 05/04/2022 CLINICAL INDICATION: Female, 33 years old with history of RLQ pain; RLQ pain, vaginal bleeding TECHNIQUE: Axial CT abdomen pelvis w con;Sagittal and coronal reformats were created on a separate w orkstation. Contrast used:100 ml mL of Isovue 300 with IV Contrast, (none if empty) Oral contrast used: with Oral Contrast (none if empty) CT DLP: 1051.3 mGycm, Automated exposure control for dose reduction was used. FINDINGS: LOWER CHEST: Unremarkable ABDOMEN LIVER: Diffusely hypoattenuating parenchyma. GALLBLADDER AND BILE DUCTS: The gallbladder is surgically absent. PANCREAS: Unremarkable. SPLEEN: Unremarkable. ADRENAL GLANDS: Unremarkable. KIDNEYS AND URETERS: No evidence of hydronephrosis or obstructing renal calculus. The ureters are unr emarkable. Duplex left collecting system noted. PELVIS BLADDER: No evidence for wall thickening or mass given limitations of exam. REPRODUCTIVE: Left ovarian cyst measuring 31 mm. Additional smaller left ovarian cyst with hyperemia. ABDOMEN & PELVIS STOMACH AND BOWEL: No evidence of bowel obstruction. The appendix is visualized and normal. PERITONEUM/RETROPERITONEUM: No evidence of pneumoperitoneum or free fluid. VASCULATURE: No evidence of aortic aneurysm. MUSCULOSKELETAL: No acute osseous abnormalities LYMPH NODES: No gross evidence for lymphadenopathy. SOFT TISSUE/ABDOMINAL WALL: Unremarkable IMPRESSION: 1. No evidence for acute right lower quadrant process. The appendix is normal. No obstructive uropat hy or renal calculus. 2. Left ovarian cyst measuring 31 mm. 3. Anatomic variant duplex left collecting system. [facility], , 10/13/2024 3:08 PM
[2024-10-13] MEDS: HYDROmorphone 1 MG/ML 1 ML SYRINGE IVP STA (15:13)
[2024-10-13] MEDS: ONDANSETRON 4 MG ODT STARTER PACK 2 TAB BTL PO STA (15:42)
[2024-10-13] MEDS: traMADol 50 MG STARTER PACK 3 TAB BTL PO STA (15:42)
[2024-10-13] MEDS: cefTRIAXone IN SWFI 1,000 MG/10 ML SYRINGE IVP STA (15:43)
[2024-10-13 15:59] VITALS: BP 130/68; PULSE 65
== END 2024-10-13 15:59 | disposition home or self-care (01) ==
LOC: EC 12:14
DX: N39.0 Urinary tract infection, site not specified (principal); Z88.5 Allergy status to narcotic agent; Z91.048 Other nonmedicinal substance allergy status; Z91.040 Latex allergy status; Z88.8 Allergy status to other drugs, medicaments and biological substances
CPT/HCPCS: 36415; 80053; 83605; 85025; 81001; 81025; 87086; 93975; 76856; 76770; 74177; 99284; 96374; 96375; 96361; J2270; J2405; J0696; J1171; J1885; S0119; Q9967